=== PATIENT | female | born 1975 | race Caucasian/White ===

== ENCOUNTER 2019-02-17 22:03 | Emergency (ER) | payer BC ==
[2012-03-09 11:40] VITALS: BP 165/93
[2019-02-17] MEDS ORDERED: NA CHLORIDE 0.9% 1,000 ML ONE (23:04)
[2019-02-17 23:29] LABS: Absolute Lymphocytes (CBC) 0.6 K/uL (0.7-4.9); Absolute Monocytes 0.7 K/uL (0.1-1.3); Absolute Neutrophil 15.5 K/uL (1.8-8.0); Basophils % 0.3 % (0-1.3); Eosinophils % 0.4 % (0-4.4); Lymphocytes % 3.7 % (15.3-44.8); MPV 9.9 fL (7.6-11.3); Monocytes % 4.2 % (3.3-12.3); RBC Red Blood Cell Count 5.83 M/uL (3.86-4.86)
[2019-02-17 23:45] LABS: Bilirubin Direct 0.2 mg/dL (0-0.2); Bilirubin Total 0.7 mg/dL (0.2-1.0); Potassium 3.8 mmol/L (3.5-5.1)
[2019-02-17 23:59] LABS: Blood Morphology Comment NOT SEEN (NOT SEEN); Platelet Estimate ADEQ
[2019-02-18] MEDS ORDERED: DICYCLOMINE HCL 10 MG CAP ONE
[2019-02-18 00:05] LABS: Urine Culture Reflex Order NOT NEEDED
[2019-02-18 00:06] LABS: Urine Bacteria 20-50 /HPF (<20); Urine RBC <5 /HPF (NONE SEEN); Urine Yeast FEW (NONE SEEN)
[2019-02-18 00:10] LABS: Urine Blood 2+ (NEG); Urine Glucose 2+ (NEG); Urine Protein TRACE (NEG)
[2019-02-18] MEDS ORDERED: FENTANYL CITR 100 MCG/2 ML ONE (01:16)
[2019-02-18] MEDS ORDERED: NA CHLORIDE 0.9% 1,000 ML ONE (01:16)
[2019-02-18] MEDS ORDERED: DIAZEPAM 10 MG/2 ML INJ SYRINGE ONE (01:19)
[2019-02-18] MEDS ORDERED: PROMETHAZINE 25 MG/ML VIAL ONE ×2 (02:27)
[2019-02-18] MEDS ORDERED: METRONIDAZOLE 500mg IVPB 500 MG/100 ML BAG IV ONE (02:27)
--- NOTE | 2019-02-18 02:50 | ER ---
Nurse's Notes [facility] Name: Anatoliy Cardenas Age: 43 yrs Sex: Female : 1975 Arrival Date: 02/17/2019 Time: 22:05 Bed 27 Private MD: Lexa Nielsen Diagnosis: Enterocolitis;Nausea and vomiting Presentation: 02/17 22:24 Presenting complaint: Patient states: "About 6:30 I started feeling bad. My stomach aj1 started cramping, I'm having diarrhea and I keep throwing up, my watch says that my heart rate has been high too" Denies fever. Transition of care: patient was not received from another setting of care. Onset of symptoms was February 17, 2019 at 18:30. Risk Assessment: Do you want to hurt yourself or someone else? Patient reports no desire to harm self or others. Initial Sepsis Screen: Does the patient meet any 2 criteria? HR > 90 bpm. No. Patient's initial sepsis screen is negative. Does the patient have a suspected source of infection? Yes: Acute abdominal pain. Care prior to arrival: None. 22:24 Method Of Arrival: Wheelchair aj1 22:24 Acuity: PATRICIA 3 aj1 Triage Assessment: 22:28 General: Appears in no apparent distress. uncomfortable, ill, Behavior is calm, aj1 cooperative, appropriate for age. Pain: Complains of pain in abdomen Pain currently is 5 out of 10 on a pain scale. Quality of pain is described as crampy. Neuro: Level of Consciousness is awake, alert, obeys commands, Oriented to person, place, time, situation. Cardiovascular: Patient's skin is warm and dry. Respiratory: Airway is patent Respiratory effort is even, unlabored, Respiratory pattern is regular, symmetrical. GI: Reports diarrhea, nausea, vomiting. 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 - Social history:: Smoking status: Patient/guardian denies using tobacco. - Ebola Screening: : Patient denies travel to an Ebola-affected area in the 21 days before illness onset. Screenin:43 Abuse screen: Denies threats or abuse. Denies injuries from another. Nutritional mg2 screening: No deficits noted. Tuberculosis screening: No symptoms or risk factors identified. Fall Risk IV access (20 points). Assessment: 23:39 General: Appears in no apparent distress. comfortable. Pain: Complains of pain in mg2 abdomen Pain does not radiate. Pain currently is 5 out of 10 on a pain scale. Quality of pain is described as aching, Pain began gradually, \\T\\ 1800 tonight Is intermittent. Neuro: Level of Consciousness is awake, alert, obeys commands, Oriented to person, place, time, situation. Cardiovascular: Capillary refill < 3 seconds Patient's skin is warm and dry. Respiratory: Airway is patent Respiratory effort is even, unlabored, Respiratory pattern is regular, symmetrical. GI: Abdomen is round non-distended, Reports lower abdominal pain, upper abdominal pain, diarrhea, vomiting. EENT: No signs and/or symptoms were reported regarding the EENT system. Derm: Skin is intact, is healthy with good turgor, Skin is pink, warm \\T\\ dry. normal. Musculoskeletal: Circulation, motion, and sensation intact. Capillary refill < 3 seconds. 02/18 00:29 Reassessment: patient refused to do ct abdomen with contrast because patient is mg2 claustrophobic. provider informed. 01:32 Reassessment: patent sent to ct scan via stretcher. mg2 Vital Signs: 02/17 22:28 BP 142 / 95; Pulse 124; Resp 20; Temp 98.3; Pulse Ox 97% on R/A; Weight 145.6 kg (R); aj1 Height 5 ft. 6 in. (167.64 cm) (R); 02/18 00:16 BP 155 / 104; Pulse 108; Resp 18; Pulse Ox 100% on R/A; mg2 01:57 BP 112 / 80; Pulse 114; Resp 18; Pulse Ox 100% on R/A; mg2 03:02 BP 122 / 78; Pulse 104; Resp 18; Pulse Ox 100% on R/A; Pain 0/10; mg2 02/17 22:28 Body Mass Index 51.81 (145.60 kg, 167.64 cm) aj1 ED Course: 02/17 22:05 Patient arrived in ED. do 22:05 Lexa Nielsen MD is Private Physician. do 22:26 Triage completed. aj1 22:28 Arm band placed on Patient placed in an exam room. aj1 22:42 Desire Yañ[facility]-C [facility]. snw 22:42 Edmund Araya MD is Attending Physician. snw 22:44 Zuhair Reyes RN is Primary Nurse. mg2 23:43 No provider procedures requiring assistance completed. Inserted saline lock: 20 gauge mg2 in right forearm, using aseptic technique. Blood collected. 02/18 00:00 Patient has correct armband on for positive identification. mg2 01:31 CT completed. Patient tolerated procedure well. Patient moved to CT via stretcher. vr Patient moved back from CT. 01:40 CT Abd/Pelvis - W/Contrast In Process Unspecified. EDMS 02:48 Lexa Nielsen MD is Referral Physician. snw 03:10 IV discontinued, intact, bleeding controlled, No redness/swelling at site. Pressure mg2 dressing applied. Administered Medications: 02/17 23:15 Drug: NS 0.9% 1000 ml Route: IV; Rate: 1 bolus; Site: right forearm; mg2 02/18 02:12 Follow up: Response: No adverse reaction; IV Status: Completed infusion mg2 02/17 23:55 Drug: Phenergan 12.5 mg Route: IVP; Site: right forearm; mg2 02/18 00:30 Follow up: Response: No adverse reaction; Marked relief of symptoms mg2 00:15 Drug: Bentyl 20 mg Route: PO; mg2 02:12 Follow up: Response: No adverse reaction; Marked relief of symptoms mg2 01:02 Drug: NS 0.9% 1000 ml Route: IV; Rate: 1 bolus; Site: right antecubital; ca1 02:00 Follow up: Response: No adverse reaction; IV Status: Completed infusion mg2 01:03 Drug: Valium 5 mg Route: IVP; Site: right antecubital; ca1 02:12 Follow up: Response: No adverse reaction; Marked relief of symptoms mg2 01:05 Drug: fentaNYL (PF) 25 mcg Route: IVP; Site: right antecubital; ca1 02:12 Follow up: Response: No adverse reaction mg2 02:21 Drug: Phenergan 12.5 mg Route: IVP; Site: right forearm; mg2 03:09 Follow up: Response: No adverse reaction; Marked relief of symptoms mg2 02:21 Drug: Flagyl 500 mg Volume: 100 ml; Route: IVPB; Rate: 200 ml/hr; Infused Over: 30 mg2 mins; Site: right forearm; 03:09 Follow up: Response: No adverse reaction; IV Status: Completed infusion mg2 Outcome: 02:49 Discharge ordered by . snpernell 03:10 Discharged to home via wheelchair, with family. mg2 03:10 Condition: stable 03:10 Discharge instructions given to patient, family, Instructed on discharge instructions, follow up and referral plans. medication usage, Demonstrated understanding of instructions, follow-up care, medications, Prescriptions given X 3. 03:11 Patient left the ED. mg2 Signatures: Dispatcher [employer] EDAlyce Guillen RN RN aj1 Desire Yañez, CITY DETECTIVE-C CITY DETECTIVE-Lindsay Em Danielle do [place], Michele, RN RN mg2 Gabriella Oconnell RN RN ca1
--- NOTE | 2019-02-18 02:50 | EDPHYS ---
Physician Documentation [facility] Name: Anatoliy Cardenas Age: 43 yrs Sex: Female : 1975 Arrival Date: 02/17/2019 Time: 22:05 Bed 27 Private MD: Lexa Nielsen ED Physician Edmund Araya HPI: 02/18 02:38 This 43 yrs old Female presents to ER via Wheelchair with complaints of snw Vomiting/Diarrhea. 02:38 The patient presents to the emergency department with nausea, vomiting, diarrhea, snw abdominal pain, of the abdomen, described as achy, crampy. Possible causes: unknown. Associated signs and symptoms: The patient has no apparent associated signs or symptoms. Severity of symptoms: At their worst the symptoms were moderate severe in the emergency department the symptoms are unchanged. It is unknown whether or not the patient has had similar symptoms in the past. The patient has been recently seen by a physician: with similar presenting complaints. 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 - Social history:: Smoking status: Patient/guardian denies using tobacco. - Ebola Screening: : Patient denies travel to an Ebola-affected area in the 21 days before illness onset. ROS: 02/18 02:33 Constitutional: Negative for fever, chills, and weight loss, Eyes: Negative for injury, snw pain, redness, and discharge, ENT: Negative for injury, pain, and discharge, Neck: Negative for injury, pain, and swelling, Cardiovascular: Negative for chest pain, palpitations, and edema, Respiratory: Negative for shortness of breath, cough, wheezing, and pleuritic chest pain, Back: Negative for injury and pain, : Negative for injury, bleeding, discharge, and swelling, MS/Extremity: Negative for injury and deformity, Skin: Negative for injury, rash, and discoloration, Neuro: Negative for headache, weakness, numbness, tingling, and seizure. Abdomen/GI: Positive for abdominal pain, nausea, vomiting, and diarrhea. Exam: 02:32 Constitutional: This is a well developed, well nourished patient who is awake, alert, snw and in no acute distress. Head/Face: Normocephalic, atraumatic. Eyes: Pupils equal round and reactive to light, extra-ocular motions intact. Lids and lashes normal. Conjunctiva and sclera are non-icteric and not injected. Cornea within normal limits. Periorbital areas with no swelling, redness, or edema. ENT: Nares patent. No nasal discharge, no septal abnormalities noted. Tympanic membranes are normal and external auditory canals are clear. Oropharynx with no redness, swelling, or masses, exudates, or evidence of obstruction, uvula midline. Mucous membranes moist. Neck: Trachea midline, no thyromegaly or masses palpated, and no cervical lymphadenopathy. Supple, full range of motion without nuchal rigidity, or vertebral point tenderness. No Meningismus. Chest/axilla: Normal chest wall appearance and motion. Nontender with no deformity. No lesions are appreciated. Cardiovascular: Regular rate and rhythm with a normal S1 and S2. No gallops, murmurs, or rubs. Normal PMI, no JVD. No pulse deficits. Respiratory: Lungs have equal breath sounds bilaterally, clear to auscultation and percussion. No rales, rhonchi or wheezes noted. No increased work of breathing, no retractions or nasal flaring. Back: No spinal tenderness. No costovertebral tenderness. Full range of motion. Skin: Warm, dry with normal turgor. Normal color with no rashes, no lesions, and no evidence of cellulitis. MS/ Extremity: Pulses equal, no cyanosis. Neurovascular intact. Full, normal range of motion. Neuro: Awake and alert, GCS 15, oriented to person, place, time, and situation. Cranial nerves II-XII grossly intact. Motor strength 5/5 in all extremities. Sensory grossly intact. Cerebellar exam normal. Normal gait. Psych: Awake, alert, with orientation to person, place and time. Behavior, mood, and affect are within normal limits. 02:32 Abdomen/GI: Inspection: obese Bowel sounds: hyperactive, Palpation: moderate abdominal tenderness, in all quadrants. Vital Signs: 02/17 22:28 BP 142 / 95; Pulse 124; Resp 20; Temp 98.3; Pulse Ox 97% on R/A; Weight 145.6 kg (R); aj1 Height 5 ft. 6 in. (167.64 cm) (R); 02/18 00:16 BP 155 / 104; Pulse 108; Resp 18; Pulse Ox 100% on R/A; mg2 01:57 BP 112 / 80; Pulse 114; Resp 18; Pulse Ox 100% on R/A; mg2 03:02 BP 122 / 78; Pulse 104; Resp 18; Pulse Ox 100% on R/A; Pain 0/10; mg2 02/17 22:28 Body Mass Index 51.81 (145.60 kg, 167.64 cm) aj1 MDM: 02/17 23:42 Patient medically screened. snw 02/18 02:33 Data reviewed: vital signs, nurses notes. Data interpreted: Pulse oximetry: on room air snw is 100 %. Interpretation: normal. Counseling: I had a detailed discussion with the patient and/or guardian regarding: the historical points, exam findings, and any diagnostic results supporting the discharge/admit diagnosis, the presence of at least one elevated blood pressure reading (>120/80) during this emergency department visit, lab results, radiology results, the need for outpatient follow up, to return to the emergency department if symptoms worsen or persist or if there are any questions or concerns that arise at home. Response to treatment: the patient's symptoms have markedly improved after treatment. Special discussion: Based on the patient's Hx, exam, and Dx evaluation, there is no indication for emergent surgery or inpatient Tx. It is understood by the patient/guardian that if the Sx's persist or worsen they need to return immediately for re-evaluation. I have referred the patient to see his PCP for further evaluation of high blood pressure. Based on the history and exam findings, there is no indication for further emergent testing or inpatient evaluation. I discussed with the patient/guardian the need to see the aboriginal education teacher for further evaluation of the symptoms. I discussed with the patient/guardian the need to see the primary care provider for further evaluation of the symptoms. ED course: Pt states he WBC has been elevated x 2 months. Pt would like weight loss surgery but was denied as WBC were elevated. Pt with 17,000 WBC with left shift and increased H/H today, initially declines CT second to claustrophobia. Discussed anxiolytics and need to eval what is happening in her abdomen. Pt rec'd Valium and tolerated CT well. + enterocolitis. Will medicate with Flagyl IV, give phenergan and make sure pt can tolerate Cipro po for planned discharge with outpatient follow up . 02/17 22:43 Order name: Flu; Complete Time: 23:50 snw 02/17 22:43 Order name: Strep; Complete Time: 23:50 snw 02/17 22:43 Order name: Basic Metabolic Panel; Complete Time: 23:46 snw 02/17 22:43 Order name: CBC with Diff; Complete Time: 00:00 w 02/17 22:43 Order name: Hepatic Function; Complete Time: 23:46 w 02/17 22:43 Order name: Lipase; Complete Time: 23:46 w 02/17 22:43 Order name: Blood Culture Adult (2) [facility] 02/17 22:43 Order name: CPK; Complete Time: 23:46 w 02/17 22:44 Order name: Urine Culture [facility] 02/17 22:44 Order name: Urine Microscopic Only; Complete Time: 00:32 snw 02/17 23:26 Order name: Urine Dipstick--Ancillary (enter results); Complete Time: 00:32 cm6 02/17 23:26 Order name: Urine --Ancillary (enter results); Complete Time: 00:32 cm6 02/17 23:33 Order name: Manual Differential; Complete Time: 00:00 EDMS 02/17 23:48 Order name: Throat Culture [facility] 02/17 22:43 Order name: IV Saline Lock; Complete Time: 23:15 snw 02/17 22:43 Order name: Labs collected and sent; Complete Time: 23:15 snw 02/17 22:44 Order name: Urine Test (obtain specimen); Complete Time: 23:15 snw 02/17 22:44 Order name: Urine Dipstick-Ancillary (obtain specimen); Complete Time: 23:15 snw 02/17 23:46 Order name: CT Abd/Pelvis - W/Contrast snw Administered Medications: 02/17 23:15 Drug: NS 0.9% 1000 ml Route: IV; Rate: 1 bolus; Site: right forearm; mg2 02/18 02:12 Follow up: Response: No adverse reaction; IV Status: Completed infusion mg2 02/17 23:55 Drug: Phenergan 12.5 mg Route: IVP; Site: right forearm; mg2 02/18 00:30 Follow up: Response: No adverse reaction; Marked relief of symptoms mg2 00:15 Drug: Bentyl 20 mg Route: PO; mg2 02:12 Follow up: Response: No adverse reaction; Marked relief of symptoms mg2 01:02 Drug: NS 0.9% 1000 ml Route: IV; Rate: 1 bolus; Site: right antecubital; ca1 02:00 Follow up: Response: No adverse reaction; IV Status: Completed infusion mg2 01:03 Drug: Valium 5 mg Route: IVP; Site: right antecubital; ca1 02:12 Follow up: Response: No adverse reaction; Marked relief of symptoms mg2 01:05 Drug: fentaNYL (PF) 25 mcg Route: IVP; Site: right antecubital; ca1 02:12 Follow up: Response: No adverse reaction mg2 02:21 Drug: Phenergan 12.5 mg Route: IVP; Site: right forearm; mg2 03:09 Follow up: Response: No adverse reaction; Marked relief of symptoms mg2 02:21 Drug: Flagyl 500 mg Volume: 100 ml; Route: IVPB; Rate: 200 ml/hr; Infused Over: 30 mg2 mins; Site: right forearm; 03:09 Follow up: Response: No adverse reaction; IV Status: Completed infusion mg2 Disposition: 06:07 Co-signature as Attending Physician, Edmund Araya MD I agree with the assessment and tw4 plan of care. Disposition: 02/18/19 02:49 Discharged to Home. Impression: Enterocolitis, Nausea and vomiting. - Condition is Stable. - Discharge Instructions: Food Choices to Help Relieve Diarrhea, Adult, Clear Liquid Diet, Adult, Nausea and Vomiting, Adult. - Prescriptions for Cipro 500 mg Oral Tablet - take 1 tablet by ORAL route every 12 hours for 10 days; 20 tablet. Flagyl 500 mg Oral Tablet - take 1 tablet by ORAL route every 8 hours for 10 days; 30 tablet. promethazine 25 mg Oral Tablet - take 1 tablet by ORAL route every 6 hours As needed; 20 tablet. - Medication Reconciliation Form, Thank You Letter, Antibiotic Education, Prescription Opioid Use, Work release form form. - Follow up: Lexa Nielsen MD; When: 2 - 3 days; Reason: Recheck today's complaints, Continuance of care, Re-evaluation by your physician. Follow up: Emergency Department; When: As needed; Reason: Worsening of condition. Signatures: Dispatcher [employer] EDAlyce Guillen RN RN aj1 Desire Yañez, MANDREL CLEANER-C MANDREL CLEANER-Csnw Edmund Araya MD MD tw4 Zuhair Reyes RN RN mg2 Gabriella Oconnell RN RN ca1 Corrections: (The following items were deleted from the chart) 03:11 02:49 02/18/2019 02:49 Discharged to Home. Impression: Enterocolitis; Nausea and mg2 vomiting. Condition is Stable. Forms are Medication Reconciliation Form, Thank You Letter, Antibiotic Education, Prescription Opioid Use. Follow up: Lexa Nielsen; When: 2 - 3 days; Reason: Recheck today's complaints, Continuance of care, Re-evaluation by your physician. Follow up: Emergency Department; When: As needed; Reason: Worsening of condition. snw
--- NOTE | 2019-02-18 11:56 | RAD REPORT ---
EXAM DESCRIPTION: CT - Abdomen Pelvis W Contrast - 02/18/2019 1:58 am CLINICAL HISTORY: The patient is 43 years old and is Female; ABD PAIN TECHNIQUE: Axial computed tomography images of the abdomen and pelvis with intravenous contrast. S agittal and coronal reformatted images were created and reviewed. This CT exam was performed using one or more of the following dose reduction techniques: automated exposure control, adjustment of t he mA and/or kV according to patient size, and/or use of iterative reconstruction technique. COMPARISON: No relevant prior studies available. FINDINGS: LUNG BASES: Unremarkable. No mass. No consolidation. ABDOMEN: LIVER: There is a diffuse decrease in hepatic parenchymal density, consistent with fatty infiltr ation. GALLBLADDER AND BILE DUCTS: Surgical clips are present in the right upper quadrant, consistent w ith previous cholecystectomy. Mild biliary dilatation is present, likely postsurgical. PANCREAS: No ductal dilation. No mass. SPLEEN: Unremarkable. ADRENALS: Unremarkable. No mass. KIDNEYS AND URETERS: Unremarkable. No solid mass. No hydronephrosis. STOMACH AND BOWEL: The stomach is decompressed. The small bowel is relatively normal in calibe r. A few distal small bowel loops are fluid-filled. Minimal liquid stool is noted within the right co deborah. Minimal stool is noted throughout the colon. There is no mucosal thickening or evidence of bowel obstruction. PELVIS: APPENDIX: The appendix is normal in caliber without surrounding inflammation. BLADDER: Unremarkable. No mass. REPRODUCTIVE: Unremarkable as visualized. ABDOMEN and PELVIS: INTRAPERITONEAL SPACE: Unremarkable. No free air. No significant fluid collection. BONES/JOINTS: No acute fracture. Minimal degenerative change of the spine is present. SOFT TISSUES: The soft tissues are normal. VASCULATURE: Unremarkable. No abdominal aortic aneurysm. LYMPH NODES: Unremarkable. No enlarged lymph nodes. IMPRESSION: Nonspecific fluid-filled distal small bowel and colon specifically the right colon which may be secondary to a nonspecific enterocolitis. There is no bowel obstruction. Electronically signed by: Jessica Ritter MD 02/18/2019 1:53 AM CDT Due to temporary technical issues with the PACS/Fluency reporting system, reports are being signed by the in house radiologist as a courtesy to ensure prompt reporting. The interpreting radiologist is f ully responsible for the content of the report.
== END 2019-02-18 03:11 | disposition home or self-care (01) ==
LOC: ER 22:03
DX: K52.9 Noninfective gastroenteritis and colitis, unspecified (principal); I10 Essential (primary) hypertension; E11.9 Type 2 diabetes mellitus without complications; Z88.0 Allergy status to penicillin; Z88.2 Allergy status to sulfonamides; Z88.8 Allergy status to other drugs, medicaments and biological substances
CPT/HCPCS: 36415; 74177; 80048; 80076; 81003; 81015; 81025; 82550; 83690; 85025; 87040; 87070; 87081; 87086; 87088; 87804; 99284; J2550; J3010; J3360; J7030; Q9967

== ENCOUNTER 2020-07-23 22:01 | Emergency (ER) | payer BC ==
[2020-07-23] MEDS ORDERED: HYDROCODONE/APAP 10/325 TAB ONE (22:35)
[2020-07-23] MEDS ORDERED: KETOROLAC 30 MG/ML INJ ONE (22:36)
--- NOTE | 2020-07-23 23:36 | ER ---
Nurse's Notes [facility] Name: Anatoliy Cardenas Age: 45 yrs Sex: Female : 1975 Arrival Date: 07/23/2020 Time: 22:03 Bed 13 Private MD: Diagnosis: Pain in right knee;Sprain of medial collateral ligament of right knee Presentation: 07/23 22:15 Chief complaint: Patient states: she was sitting in her recliner at home and her dog bb jumped up on the foot rest hitting her right leg causing her right lower leg to hyperextend laterally and she is in severe knee pain. Coronavirus screen: At this time, the client does not indicate any symptoms associated with coronavirus-19. Ebola Screen: No symptoms or risks identified at this time. Initial Sepsis Screen: Does the patient meet any 2 criteria? No. Patient's initial sepsis screen is negative. Does the patient have a suspected source of infection? No. Patient's initial sepsis screen is negative. Risk Assessment: Do you want to hurt yourself or someone else? Patient reports no desire to harm self or others. Onset of symptoms was July 23, 2020. 22:15 Method Of Arrival: Wheelchair bb 22:15 Acuity: PATRICIA 4 bb Triage Assessment: 22:15 General: Appears in no apparent distress. uncomfortable, obese, Behavior is vc cooperative, crying. Pain: Complains of pain in right knee Pain does not radiate. Pain currently is 8 out of 10 on a pain scale. at worst was 10 out of 10 on a pain scale. Quality of pain is described as sharp, stabbing, Pain began suddenly, Is continuous, Alleviated by rest, cold application, Aggravated by increased activity, repositioning, weight bearing, Noted to be crying, grimacing, resistant to movement. 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 - Social history:: Smoking status: Patient denies any tobacco usage or history of. Patient uses alcohol, occasionally. Patient/guardian denies using street drugs. Screenin:15 Abuse screen: Denies threats or abuse. Nutritional screening: No deficits noted. vc Tuberculosis screening: No symptoms or risk factors identified. Fall Risk None identified. Assessment: 22:20 General: Appears in no apparent distress. uncomfortable, obese, Behavior is vc cooperative, crying. Pain: Complains of pain in right knee. Neuro: Level of Consciousness is awake, alert, obeys commands, Oriented to person, place, time, situation, Appropriate for age. Cardiovascular: Patient's skin is warm and dry. Respiratory: No deficits noted. GI: No signs and/or symptoms were reported involving the gastrointestinal system. : No signs and/or symptoms were reported regarding the genitourinary system. Musculoskeletal: Range of motion: limited in right knee Swelling present in right knee. 23:30 Reassessment: Patient and/or family updated on plan of care and expected duration. Pain vc level reassessed. Patient is alert, oriented x 3, equal unlabored respirations, skin warm/dry/pink. Patient states symptoms have improved. Vital Signs: 22:15 BP 153 / 98; Pulse 114; Resp 14 S; Temp 98(O); Pulse Ox 93% on R/A; Weight 170.1 kg bb (R); Height 5 ft. 7 in. (170.18 cm) (R); Pain 8/10; 23:00 BP 143 / 94; Pulse 100; Resp 15; Pulse Ox 94% on R/A; vc 23:38 BP 162 / 101; Pulse 100; Resp 16; Pulse Ox 90% on R/A; vc 23:38 Pain 8/10; vc 22:15 Body Mass Index 58.73 (170.10 kg, 170.18 cm) ED Course: 22:03 Patient arrived in ED. bp1 22:04 Ashley Martinez RN is Primary Nurse. vc 22:08 Gamaliel Muller PA is PHCP. jr8 22:08 Usman Hernandes MD is Attending Physician. jr8 22:17 Triage completed. bb 22:19 Arm band placed on Patient placed in an exam room, in a wheelchair, on pulse oximetry. tony Family accompanied patient. 22:19 Patient has correct armband on for positive identification. Bed in low position. Call vc light in reach. Pulse ox on. NIBP on. 23:25 XRAY Knee RIGHT 3 view In Process Unspecified. EDMS 23:35 Uriel Lucero MD is Referral Physician. jrSonia 23:50 Assist provider with bone marrow aspiration. Patient did not have IV access during this vc emergency room visit. Crutch training done. Jason wrap to right knee. Administered Medications: 22:31 Drug: Waller 10 mg-325 mg 1 tabs Route: PO; vc 23:28 Follow up: Response: No adverse reaction; Pain is decreased vc 22:31 Drug: TORadol 30 mg Route: IM; Site: right deltoid; vc 23:27 Follow up: Response: No adverse reaction; Pain is decreased vc Outcome: 23:35 Discharge ordered by . jrSonia 07/24 00:00 Discharged to home via wheelchair, with crutches, with family. vc Condition: good Discharge instructions given to patient, Instructed on discharge instructions, follow up and referral plans. medication usage, crutch walking, Demonstrated understanding of instructions, follow-up care, crutch walking, Prescriptions given X 1. 00:06 Patient left the ED. vc Signatures: Dispatcher [employer] Irena Narayan RN RN bb Roszak, Josh, PA PA jrAshley Monroy RN RN vc [place], Brittany bp1
--- NOTE | 2020-07-23 23:36 | EDPHYS ---
Physician Documentation [facility] Name: Anatoliy Cardenas Age: 45 yrs Sex: Female : 1975 Arrival Date: 07/23/2020 Time: 22:03 Bed 13 Private MD: ED Physician Usman Hernandes HPI: 07/23 22:22 This 45 yrs old Female presents to ER via Wheelchair with complaints of Knee jr8 Injury. 22:22 The patient presents with decreased range of motion, pain. The complaints affect the jr8 right knee. Context: The problem was sustained at home. Onset: The symptoms/episode began/occurred acutely, just prior to arrival, today. Modifying factors: The symptoms are alleviated by nothing. the symptoms are aggravated by movement, weight bearing. Associated signs and symptoms: The patient has no apparent associated signs or symptoms. Severity of symptoms: At their worst the symptoms were moderate, in the emergency department the symptoms are unchanged. The patient has not experienced similar symptoms in the past. The patient has not recently seen a physician. Patient stated that her dog hit her on medial aspect of leg causing leg and knee to hyperextend and abduct. Now has pain and cannot bear weight well . 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 - Social history:: Smoking status: Patient denies any tobacco usage or history of. Patient uses alcohol, occasionally. Patient/guardian denies using street drugs. ROS: 22:22 Eyes: Negative for injury, pain, redness, and discharge, ENT: Negative for injury, jr8 pain, and discharge, Neck: Negative for injury, pain, and swelling, Cardiovascular: Negative for chest pain, palpitations, and edema, Respiratory: Negative for shortness of breath, cough, wheezing, and pleuritic chest pain, Abdomen/GI: Negative for abdominal pain, nausea, vomiting, diarrhea, and constipation, Back: Negative for injury and pain, Skin: Negative for injury, rash, and discoloration, Neuro: Negative for headache, weakness, numbness, tingling, and seizure. 22:22 MS/extremity: Positive for decreased range of motion, pain, tenderness, of the right knee. Exam: 22:22 Cardiovascular: Regular rate and rhythm with a normal S1 and S2. No gallops, murmurs, jr8 or rubs. Normal PMI, no JVD. No pulse deficits. Respiratory: Lungs have equal breath sounds bilaterally, clear to auscultation and percussion. No rales, rhonchi or wheezes noted. No increased work of breathing, no retractions or nasal flaring. Skin: Warm, dry with normal turgor. Normal color with no rashes, no lesions, and no evidence of cellulitis. Neuro: Awake and alert, GCS 15, oriented to person, place, time, and situation. Cranial nerves II-XII grossly intact. Motor strength 5/5 in all extremities. Sensory grossly intact. Cerebellar exam normal. Normal gait. 22:22 Constitutional: The patient appears alert, awake, in obvious pain. 22:22 Musculoskeletal/extremity: Extremities: grossly normal except: noted in the right knee: decreased ROM, pain, tenderness, ROM: full passive range of motion, in all extremities, limited active range of motion, in the right leg, limited active range of motion due to pain, in the right leg, limited passive range of motion due to pain, in the right leg, Circulation is intact in all extremities. Pulses: noted to be 2+ in the right radial artery, right dorsalis pedis artery, left radial artery and left dorsalis pedis artery, Sensation intact. Vital Signs: 22:15 BP 153 / 98; Pulse 114; Resp 14 S; Temp 98(O); Pulse Ox 93% on R/A; Weight 170.1 kg bb (R); Height 5 ft. 7 in. (170.18 cm) (R); Pain 8/10; 23:00 BP 143 / 94; Pulse 100; Resp 15; Pulse Ox 94% on R/A; vc 23:38 BP 162 / 101; Pulse 100; Resp 16; Pulse Ox 90% on R/A; vc 23:38 Pain 8/10; vc 22:15 Body Mass Index 58.73 (170.10 kg, 170.18 cm) bb MDM: 22:08 Patient medically screened. jr8 23:34 Differential diagnosis: dislocation, closed fracture, contusion. Data reviewed: vital jr8 signs, nurses notes, radiologic studies, plain films. Data interpreted: Pulse oximetry: on room air is 95 %. Interpretation: normal. Counseling: I had a detailed discussion with the patient and/or guardian regarding: the historical points, exam findings, and any diagnostic results supporting the discharge/admit diagnosis, radiology results, the need for outpatient follow up, a orthopedic surgeon, to return to the emergency department if symptoms worsen or persist or if there are any questions or concerns that arise at home. 07/23 22:20 Order name: XRAY Knee RIGHT 3 view jr8 07/23 23:39 Order name: Crutches; Complete Time: 00:04 jr8 Administered Medications: 22:31 Drug: Moran 10 mg-325 mg 1 tabs Route: PO; vc 23:28 Follow up: Response: No adverse reaction; Pain is decreased vc 22:31 Drug: TORadol 30 mg Route: IM; Site: right deltoid; vc 23:27 Follow up: Response: No adverse reaction; Pain is decreased vc Disposition: 07/24 01:26 Co-signature as Attending Physician, Usman Hernandes MD. [facility] Disposition: 07/23/20 23:35 Discharged to Home. Impression: Pain in right knee, Sprain of medial collateral ligament of right knee. - Condition is Stable. - Discharge Instructions: Knee Pain. - Prescriptions for meloxicam 15 mg Oral tablet - take 1 tablet by ORAL route once daily As needed; 20 tablet. - Work release form, Medication Reconciliation Form, Thank You Letter, Antibiotic Education, Prescription Opioid Use form. - Follow up: Uriel Lucero MD; When: 5 - 6 days; Reason: Recheck today's complaints, Continuance of care, Re-evaluation by your physician. - Problem is new. - Symptoms have improved. Signatures: Dispatcher [employer] EDIrena Arreola RN RN bb Roszak, Josh, PA PA 8 Ashley Martinez RN RN vc Holmes, Maurice, MD MD [facility] Corrections: (The following items were deleted from the chart) 00:06 07/23 23:35 07/23/2020 23:35 Discharged to Home. Impression: Pain in right knee; Sprain vc of medial collateral ligament of right knee. Condition is Stable. Forms are Medication Reconciliation Form, Thank You Letter, Antibiotic Education, Prescription Opioid Use. Follow up: Uriel Lucero; When: 5 - 6 days; Reason: Recheck today's complaints, Continuance of care, Re-evaluation by your physician. Problem is new. Symptoms have improved. jr8
[2020-07-24 01:31] VITALS: TEMP 98
[2020-07-24 01:34] VITALS: BP 162/101; O2SAT 90
--- NOTE | 2020-07-24 07:50 | RAD REPORT ---
EXAM DESCRIPTION: RAD - Knee Right 3 View - 07/23/2020 11:25 pm CLINICAL HISTORY: Right knee pain status post injury FINDINGS: Suboptimal lateral view obtained. No fracture or dislocation is seen. Moderate medial joint space narrowing If patient continues to have symptoms to suggest an occult fracture, ligamentous or meniscal injury M RI would
== END 2020-07-24 00:06 | disposition home or self-care (01) ==
LOC: ER 22:01
DX: S83.411A Sprain of medial collateral ligament of right knee, initial encounter (principal); W22.8XXA Striking against or struck by other objects, initial encounter; Y93.89 Activity, other specified; Y92.009 Unspecified place in unspecified non-institutional (private) residence as the place of occurrence of the external cause; Z88.0 Allergy status to penicillin; Z88.2 Allergy status to sulfonamides; Z88.8 Allergy status to other drugs, medicaments and biological substances; I10 Essential (primary) hypertension; E11.9 Type 2 diabetes mellitus without complications
CPT/HCPCS: 96372; 99284

== ENCOUNTER 2023-02-25 18:01 | Inpatient (IN) | payer OTHER ==
--- OUTSIDE RECORDS SUMMARY | 2023-02-25 18:08 | XMS REPORT | Continuity of Care Document ---
:1975 Author Organization [facility] t Address [address] [facility] [place] [address] Care Team Providers Name Role Phone Sven Black Primary Care Physician KAILEY EDWARD Attending Clinician Unavailable BIN HORVATH Attending Clinician Unavailable MD JOJO Attending Clinician Unavailable LAB90 Attending Clinician Unavailable ILYA MUJICA Attending Clinician Unavailable SONIDO WOO Attending Clinician Unavailable LUCIAN COWAN Attending Clinician Unavailable Kailey Craig Attending Clinician TEODORO ROJO Attending Clinician Unavailable Doctor Unassigned, [place] Attending Clinician Unavailable Cleopatra Chandler RN Attending Clinician Rony Segovia DO Attending Clinician Florinda Lewis MD Attending Clinician Tasha Montez MD Attending Clinician TASHA MONTEZ Attending Clinician Unavailable Ravinder PAGE, Teodoro Sanford Attending Clinician [phone] BAMBI AGUILERA Attending Clinician Unavailable 2, [facility] Attending Clinician Unavailable Bambi Aguilera MD Attending Clinician Florinda Lewis MD Admitting Clinician FLORINDA LEWIS Admitting Clinician Unavailable Payers Payer Name Policy Type Policy Number Effective Date Expiration Date S jay VIEIRA-ALLEGIANPEPPER 2 [id number] 2022 /PPO 00:00:00 [facility] 3 [id number] 2021 00:00:00 [id number] 2019 OUT OF STATE 00:00:00 Problems Condition Condition Condition Status Onset Resolution Last Treating Co mments Source Name Details Category Date Date Treatment Clinician Date 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 11-21 ity of embolism embolism 00:00: [place] 00 Medical Branch Morbid Morbid Disease Active 2020-11 Univers obesity obesity 11-21 [place] of with body [place] mass index [place] index 00 Me dical of 50 or of 50 or Branch higher higher Encounter Encounter Disease Active 2020-11 Giovanny morrison for for 11-09 Seybold initial initial 00:00: - prescripti prescripti 00 Ex terna on of on of l contracept contracept ascencion ascencion Vitamin D Vitamin D Disease Active 2020-11 Giovanny morrison deficiency deficiency 11-09 Se ybold 00:00: - 00 Externa l 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:00: - major major 00 Externa depressive depressive l disorder disorder without without prior prior episode episode Overweight Overweight Disease Active 2020-11 Erich wilkes 11-09 Seybold 00:00: - 00 Externa l 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 11-09 Se ybold ia ia 00:00: - 00 Externa l Folliculit Folliculit Disease Active 2020-11 Erich wilkes is is 11-09 Seybold 00:00: - 00 Externa l ELENO ELENO Disease Active Anayeli (obstructi (obstructi 7 Se ybold ve sleep ve sleep 00:00: - apnea) - apnea) - 00 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 Not Not l Controlled Controlled Floaters Floaters Disease Active Kelse y in visual in visual 7-28 Seyb old field, field, 00:00: - right - right - 00 Externa Not Not l Controlled Controlled 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 00:00: - with skin with skin 00 Exte rna complicati complicati l on, on, without without long-term long-term current current use of use of insulin insulin Essential Essential Disease Active Giovanny sey hypertensi hypertensi 4-13 Se ybold on on 00:00: - 00 Externa l Abscess of Abscess of Disease Active K elsey skin skin 4 Seybold 00:00: - 00 Externa l Allergies, Adverse Reactions, Alerts Allergy Allergy Status Severity Reaction(s) Onset Inactive Treating Comm ents Source Name Type Date Date Clinician Penicill Propensi Active Anaphylaxis 2019-11 unknownu n Anayeli in G ty to 12-18 known Seybold adverse 00:00: - reaction 00 Externa s l Sulfa Propensi Active Itching 2019-11 Anayeli Drugs ty to 12-18 Seybold adverse 00:00: reaction 00 s Sulfa Propensi Active Itching 2019-11 Anayeli Drugs ty to 12-18 Seybold adverse 00:00: - reaction 00 Externa s l Penicill Propensi Active Unknown - 2019-11 unknown Un roberto in ty to See comments 12-18 ity of adverse 00:00: [place] reaction 00 Medical s Branch Sulfa Propensi Active Itching 2019-11 Univers (Sulfona ty to 209 ity of mide adverse 00:00: [place] Antibiot reaction 00 Medica l ics) s Branch SULFA Drug Active Med ITCHING 2019-11 Univers (SULFONA Class 2 ity of MIDE 00:00: [place] ANTIBIOT 00 Medical ICS) Branch PENICILL DRUG Active Unknown-Cmnt 2019-11 Un roberto IN INGREDI 2- ity of 00:00: [place] 00 Medical Branch NO KNOWN Drug Active Univers ALLERGIE Class ity of S [facility] [place] [facility] Social History Social Habit Start Date Stop Date Quantity Comments Source History SDOH University o f Alcohol Frequency [place] [facility] History SDOH University o f Alcohol Std [place] [facility] Drinks Branch History SDOH University o f Alcohol Binge [place] [facility] al Branch Exposure to 2021-11-24 2021-12-24 Not sure Anayeli keita SARS-CoV-2 00:00:00 12:42:00 (event) Alcohol Comment 2021-09-21 2021-09-21 socially Universit y of 00:00:00 00:00:00 [facility] [place] [facility] Alcohol intake 2021-09-21 2021-09-21 Current drinker Unive rsity of 00:00:00 00:00:00 of alcohol [place] [facility] (finding) [place] Tobacco use and 2020-11-14 2020-11-14 Never used Universit y of exposure 00:00:00 00:00:00 [facility] [place] [facility] Sex Ass[birth year] At [birth year] F Anayeli Negron ybold - 00:00:00 00:00:00 External Smoking Status Start Date Stop Date Source Never smoked tobacco Anayeli Diamond old - External Unknown if ever smoked Universit y of [facility] [place] [facility] Medications Ordered Filled Start Stop Current Ordering Indication Dosage Frequency Signature Comments Components Source Medication Medication Date Date Medication? Clinician (SIG) Name Name Blood 2021-11 Yes [id number] 1{each} 1 each by Anayeli Glucose 1-18 does not Seybold Monitoring 00:00: apply - Suppl 00 route 3 to Externa (OneTouch 4 times l Verio Flex daily System) w/Device does not apply Kit Apixaban 5 2021-11- No 1{tbl} Take 1 Ke lsey MG oral 1-17 11-17 tablet by Seybol d Tablet 14:15: 00:00 mouth - 02 :00 daily Externa l Tirzepatide 2021-11 Yes [id number] 2.5mg Inject 0.5 Anayeli (Mounjaro) 1-11 mL (2.5 mg Sey bold 2.5 00:00: total) - MG/0.5ML 00 into the Externa subcutaneou skin once l s Solution a week Pen-injecto r Metformin 2021-11- No [id number] 1000mg Take 1 Anayeli HCl 1000 MG 11-19 tablet Seybo ld oral Tablet 00:00: 00:00 (1,000 mg - 00 :00 total) by Externa mouth in l the morning and 1 tablet (1,000 mg total) in the evening. Take with meals. Empaglifloz 2021-11- No [id number] 25mg Take 25 mg Anayeli in 11-19 by mouth Seybold (Jardiance) 00:00: 00:00 daily - 25 MG oral 00 :00 Externa Tablet l Glucose 2021-11 Yes [id number] 100{eac 100 each Anayeli Blood in -09 h} by other Seybold vitro Strip 00:00: route 2 - 00 times Externa daily l Blood 2021-11- No [id number] Please Kelse y Glucose 11-17 provide Seybold Monitoring 00:00: 00:00 one touch - Suppl 00 :00 ildefonso (flex Externa (Blood or l Glucose reflex)Wit Monitor h 100 System) strips 3 w/Device month does not supply. apply Kit [employer] reports that they will pay 100% hydrOXYzine 0 Yes [id number] 25mg Q.25D Take 1 Anayeli HCl 25 MG - tablet (25 Seyb old oral Tablet 00:00: mg total) - 00 by mouth Externa every 6 l hours as needed for itching Norethindro Yes [id number] .35mg Take 1 Anayeli ne, - tablet Seybold Contracepti 00:00: (0.35 mg - ve, 00 total) by Externa (Danae) mouth l 0.35 MG every oral Tablet morning Mupirocin 0 2021- No [id number] Apply 1 Anayeli (BACTROBAN) 07-01 applicatio S eybold 2 % apply 00:00: 00:00 n - externally 00 :00 topically Exte rna Ointment 2 times l daily Apixaban 2021-0 Yes [id number] 5mg Take 1 Anayeli (Eliquis) 5 05-09 9109 tablet (5 Sey bold MG oral 00:00: mg total) - Tablet 00 by mouth 2 Externa times l daily Ondansetron Yes [id number] 4mg Q.[id number] Take 1 Anayeli (Zofran 4-25 [id number] tablet (4 S eybold ODT) 4 MG 00:00: 3D mg total) oral TABLET 00 by mouth DISPERSIBLE every 8 hours as needed for nausea Amoxicillin Yes [id number] 1{tbl} Take 1 Anayeli -Pot 4-25 tablet by Seybold Clavulanate 00:00: mouth in 875-125 MG 00 the oral Tablet morning and 1 tablet in the evening. Fluconazole Yes [id number] Take 1 Anayeli 150 MG oral 4-25 tabe now Seyb old Tablet 00:00: and 1 tab 00 at the end of antibiotic s Pseudoeph-B Yes [id number] 10mL Q.25D Take 10 mL Anayeli romphen-DM 4-25 by mouth 4 Sey bold (Bromfed 00:00: times DM) 30-2-10 00 daily as MG/5ML oral needed Syrup Ondansetron Yes [id number] 4mg Q.00174417 Take 1 Anayeli (Zofran 4-25 [id number] tablet (4 S eybold ODT) 4 MG 00:00: 3D mg total) - oral TABLET 00 by mouth Exte rna DISPERSIBLE every 8 l hours as needed for nausea Pseudoeph-B 0 2021- No [id number] 10mL Q.25D Take 10 mL Anayeli romphen-DM 4-25 11-18 by mouth 4 Se ybold (Bromfed 00:00: 00:00 times - DM) 30-2-10 00 :00 daily as Exte rna MG/5ML oral needed l Syrup Acetaminoph 0 Yes [id number] 1{tbl} Q4H Take 1 Anayeli en-Codeine 4-01 tablet by Seyb old 300-30 MG 00:00: mouth oral Tablet 00 every 4 hours as needed for pain Acetaminoph 2021-0 2021- No [id number] 1{tbl} Q4H Take 1 Anayeli en-Codeine 4-01 11-18 tablet by Sey bold 300-30 MG 00:00: 00:00 mouth - oral Tablet 00 :00 every 4 Exter na hours as l needed for pain Escitalopra Yes [id number] TAKE ONE Anayeli blanchard Oxalate 3-14 TABLET BY Seybo ld 10 MG oral 00:00: MOUTH Tablet 00 DAILY Continuous Yes [id number] CHECK Erich wilkes Blood Gluc 3-14 BLOOD Seybold Sample Dye Mixer 00:00: SUGAR FOUR (FreeStyle 00 TIMES A Erika 14 DAY AND Day [place]) NEEDED does not apply Device Escitalopra Yes [id number] TAKE ONE Anayeli blanchard Oxalate 3-14 TABLET BY Seybo ld 10 MG oral 00:00: MOUTH - Tablet 00 DAILY Externa l Continuous 2021- No [id number] CHECK Anayeli Blood Gluc 3-14 11-17 BLOOD Seybold Sample Dye Mixer 00:00: 00:00 SUGAR FOUR - (FreeStyle 00 :00 TIMES A 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 Erika 14 DAY AND l Day [place]) NEEDED does not apply Device NEOMYCIN-PO Yes [id number] 2[drp] Q.[id number] Place 2 Anayeli LYMYXIN-HC, - [id number] drops into Seybold OTIC, 1 % 00:00: 3D both ears otic 00 3 times Solution daily as needed Amoxicillin Yes [id number] 1{tbl} Take 1 Anayeli -Pot 3-09 tablet by Seybold Clavulanate 00:00: mouth in 875-125 MG 00 the oral Tablet morning and 1 tablet in the evening. Norethindro Yes [id number] .35mg Take 1 Anayeli ne, 3-09 tablet Seybold Contracepti 00:00: (0.35 mg ve, 0.35 MG 00 total) by oral Tablet mouth in the morning. NEOMYCIN-PO Yes [id number] 2[drp] Q.[id number] Place 2 Anayeli LYMYXIN-HC, 3- 48434 [id number] drops into Seybold OTIC, 1 % 00:00: 3D both ears otic 00 3 times Solution daily as needed Norethindro Yes [id number] .35mg Take 1 Anayeli ne, 3-09 tablet Seybold Contracepti 00:00: (0.35 mg ve, 0.35 MG 00 total) by oral Tablet mouth in the morning. NEOMYCIN-PO 2021- No [id number] 2[drp] Q.[id number] Place 2 Anayeli SNOWDENYXIN-HC, 01-15 03033 [id number] drops into Seybold OTIC, 1 % 00:00: 00:00 3D both ears - otic 00 :00 3 times Externa Solution daily as l needed Amoxicillin 2021- No [id number] 1{tbl} Take 1 Anayeli -Pot 01-15 04-25 tablet by Seybold Clavulanate 00:00: 00:00 mouth in 875-125 MG 00 :00 the oral Tablet morning and 1 tablet in the evening. Continuous Yes [id number] CHECK FOUR Anayeli Blood Gluc 2-23 TIMES A Seybol d Sensor 00:00: DAY AND (FreeStyle 00 NEEDED AND Erika 14 CHANGE Day Sensor) EVERY 14 does not DAYS apply Misc Continuous Yes [id number] CHECK FOUR Anayeli Blood Gluc 2-23 TIMES A Seybol d Sensor 00:00: DAY AND (FreeStyle 00 NEEDED AND Erika 14 CHANGE Day Sensor) EVERY 14 does not DAYS apply Misc Continuous Yes [id number] CHECK FOUR Anayeli Blood Gluc 2-23 TIMES A Seybol d Sensor 00:00: DAY AND - (FreeStyle 00 NEEDED AND Ext master Erika 14 CHANGE l Day Sensor) EVERY 14 does not DAYS apply Misc Norethindro 2021- No [id number] .35mg Take 1 Anayeli ne, 2-01-15 tablet Seybold Contracepti 00:00: 00:00 (0.35 mg ve, 0.35 MG 00 :00 total) by oral Tablet mouth daily Escitalopra Yes [id number] 10mg Take 1 Anayeli m Oxalate 2-11 tablet (10 Seyb old 10 MG oral 00:00: mg total) Tablet 00 by mouth daily Continuous Yes [id number] Please Anayeli Blood Gluc 2-11 check BS 4 Sey bold Sample Dye Mixer 00:00: times (FreeStyle 00 daily and Erika 14 as needed. Day [place]) does not apply Device hydrOXYzine Yes [id number] 25mg Q.25D Take 1 Anayeli HCl 25 MG 2-11 tablet (25 Seyb old oral Tablet 00:00: mg total) 00 by mouth every 6 hours as needed for itching Metoprolol 2021-0 Yes [id number] 50mg Take 1 K elsey Succinate 2-11 tablet (50 Seyb old 50 MG oral 00:00: mg total) TABLET SR 00 by mouth 24 HR daily Empaglifloz 2021-0 Yes [id number] 25mg Take 25 mg Anayeli in 2-11 by mouth Seybold (Jardiance) 00:00: daily 25 MG oral 00 Tablet Dulaglutide 2021-0 Yes [id number] 4.5mg Inject 4.5 Anayeli (Trulicity) 2-11 mg into Seybo ld 4.5 00:00: the skin MG/0.5ML 00 once a subcutaneou week s Solution Pen-injecto r hydrOXYzine 2021-0 Yes [id number] 25mg Q.25D Take 1 Anayeli HCl 25 MG 2-11 tablet (25 Seyb old oral Tablet 00:00: mg total) 00 by mouth every 6 hours as needed for itching Metoprolol 2021-0 Yes [id number] 50mg Take 1 K elsey Succinate 2-11 tablet (50 Seyb old 50 MG oral 00:00: mg total) TABLET SR 00 by mouth 24 HR daily Empaglifloz 2021-0 Yes [id number] 25mg Take 25 mg Anayeli in 2-11 by mouth Seybold (Jardiance) 00:00: daily 25 MG oral 00 Tablet Dulaglutide 2021-0 Yes [id number] 4.5mg Inject 4.5 Anayeli (Trulicity) 2-11 mg into Seybo ld 4.5 00:00: the skin MG/0.5ML 00 once a subcutaneou week s Solution Pen-injecto r Metoprolol 2021-0 2021- No [id number] 50mg Take 1 Anayeli Succinate 2-11 11-18 tablet (50 Sey bold 50 MG oral 00:00: 00:00 mg total) - TABLET SR 00 :00 by mouth 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 24 HR daily l Dulaglutide 2021-0 2021- No [id number] 4.5mg Inject 4.5 Anayeli (Trulicity) 2-11 11-18 mg into Seyb old 4.5 00:00: 00:00 the skin - MG/0.5ML 00 :00 once a Externa subcutaneou week l s Solution Pen-injecto r Benzonatate Yes [id number] 100mg Q.[id number] Take 1 Anayeli (Tessalon 2-02 [id number] capsule S eybold Perles) 100 00:00: 3D (100 mg MG oral 00 total) by Capsule mouth 3 times daily as needed for cough Pseudoeph-B Yes [id number] 10mL Q.25D Take 10 mL Anayeli romphen-DM 2-02 by mouth 4 Sey bold (Bromfed 00:00: times DM) 30-2-10 00 daily as MG/5ML oral needed Syrup Pseudoephed Yes [id number] 120mg Take 1 Anayeli rine HCl 2-02 tablet Seybold (Sudafed 12 00:00: (120 mg Hour) 120 00 total) by MG oral mouth Tablet 12 every 12 Hour hours Sustained Release Albuterol Yes [id number] 2{puff} Q.25D Inhale 2 Anayeli HFA 108 (90 2-02 puffs into Se ybold Base) 00:00: the lungs MCG/ACT IN 00 every 6 AERS hours as needed for wheezing Benzonatate Yes [id number] 100mg Q.[id number] Take 1 Anayeli (Tessalon 2-02 [id number] capsule S eybold Perles) 100 00:00: 3D (100 mg MG oral 00 total) by Capsule mouth 3 times daily as needed for cough Pseudoephed Yes [id number] 120mg Take 1 Anayeli rine HCl 2-02 tablet Seybold (Sudafed 12 00:00: (120 mg Hour) 120 00 total) by MG oral mouth Tablet 12 every 12 Hour hours Sustained Release Albuterol Yes [id number] 2{puff} Q.25D Inhale 2 Anayeli HFA 108 (90 2-02 puffs into Se ybold Base) 00:00: the lungs MCG/ACT IN 00 every 6 AERS hours as needed for wheezing Albuterol Yes [id number] 2{puff} Q.25D Inhale 2 Anayeli HFA 108 (90 2-02 puffs into Se ybold Base) 00:00: the lungs - MCG/ACT IN 00 every 6 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 AERS hours as l needed for wheezing Benzonatate 2021- No [id number] 100mg Q.[id number] Take 1 Anayeli (Tessalon 12-11 [id number] capsule Seybold Perllucinda) 100 00:00: 00:00 3D (100 mg - MG oral 00 :00 total) by Externa Capsule mouth 3 l times daily as needed for cough Pseudoephed 2021- No [id number] 120mg Take 1 Anayeli rine HCl 12-11 tablet Seybold (Sudafed 12 00:00: 00:00 (120 mg - Hour) 120 00 :00 total) by Exter na MG oral mouth l Tablet 12 every 12 Hour hours Sustained Release Pseudoeph-B 2021- No [id number] 10mL Q.25D Take 10 mL Anayeli romphen-DM 12-11-25 by mouth 4 Se ybold (Bromfed 00:00: 00:00 times DM) 30-2-10 00 :00 daily as MG/5ML oral needed Syrup Dulaglutide 2020-11 Yes [id number] 4.5mg Inject 4.5 Anayeli (Trulicity) 2-28 mg into Seybo ld 4.5 00:00: the skin MG/0.5ML 00 once a subcutaneou week s Solution Pen-injecto r Trulicity 2020-11- No [id number] INJECT 4.5 Anayeli 4.5 2-27 12-28 MG UNDER Seybold MG/0.5ML 00:00: 00:00 THE SKIN subcutaneou 00 :00 ONCE s Solution WEEKLY Pen-injecto r apixaban 5 2020-11- No [id number] 5mg Take 1 Univ ers mg tablet 12-22 tablet by ity of 00:00: 05:59 mouth [place] 00 :00 every 12 Medical (twelve) Branch hours for 360 days. Indication s: a clot in the lung apixaban 5 2020-11- No [id number] 5mg Take 1 Univ ers mg tablet 12-22 tablet by ity of 00:00: 05:59 mouth [place] 00 :00 every 12 Medical (twelve) Branch hours for 360 days. Indication s: a clot in the lung apixaban 5 2020-112- No [id number] 5mg Take 1 Univ ers mg tablet 2-21 10- tablet by ity of 00:00: 05:59 mouth [place] 00 :00 every 12 Medical (twelve) Branch hours for 360 days. Indication s: a clot in the lung Apixaban 2020-11 Yes [id number] 5mg Take 1 Ke lsey (Eliquis) 5 2-06 tablet (5 Sey bold MG oral 00:00: mg total) Tablet 00 by mouth 2 times daily Apixaban 2020-11 Yes [id number] 5mg Take 1 Ke lsey (Eliquis) 5 2-06 tablet (5 Sey bold MG oral 00:00: mg total) Tablet 00 by mouth 2 times daily Apixaban 2020-11 Yes [id number] 5mg Take 1 Anayeli (Eliquis) 5 2- 9109 tablet (5 Sey bold MG oral 00:00: mg total) Tablet 00 by mouth 2 times daily Ondansetron 2020-11 Yes [id number] 4mg Q8H Take 1 Anayeli (ZOFRAN) 4 2-03 tablet (4 Seyb old MG oral 00:00: mg total) TABLET 00 by mouth DISPERSIBLE every 8 hours as needed for nausea Ondansetron 2020-11 Yes [id number] 4mg Q.[id number] Take 1 Anayeli (ZOFRAN) 4 2-03 [id number] tablet (4 Seybold MG oral 00:00: 3D mg total) TABLET 00 by mouth DISPERSIBLE every 8 hours as needed for nausea Ondansetron 2020-11- No [id number] 4mg Q.[id number] Take 1 Anayeli (ZOFRAN) 4 2- 04-25 [id number] tablet (4 Seybold MG oral 00:00: 00:00 3D mg total) TABLET 00 :00 by mouth DISPERSIBLE every 8 hours as needed for nausea Sertraline 2020-11 Yes [id number] TAKE ONE Anayeli HCl 50 MG 1-30 TABLET BY Seybo ld oral Tablet 00:00: MOUTH 00 DAILY Apixaban 5 2020-11 Yes 1{tbl} Take 1 Giovanny sey MG oral 1-19 tablet by Seybold Tablet 15:09: mouth 56 daily Apixaban 5 2020-11 Yes 1{tbl} Take 1 Giovanny sey MG oral 1-19 tablet by Seybold Tablet 15:09: mouth 56 daily Apixaban 5 2020-11 Yes 1{tbl} Take 1 Giovanny sey MG oral 1-19 tablet by Seybold Tablet 15:09: mouth 56 daily Apixaban 5 2020-11 Yes 1{tbl} Take 1 Giovanny sey MG oral 1-19 tablet by Seybold Tablet 15:09: mouth 56 daily Lansoprazol 2020-11- No 30mg Take 30 mg Anayeli e 30 MG -27 09-19 by mouth Seybold oral 15:09: 00:00 daily Delayed 19 :00 Release Capsule Dulaglutide 2020-11 Yes [id number] 4.5mg Inject 4.5 Anayeli 4.5 1-19 mg into Seybold MG/0.5ML 00:00: the skin subcutaneou 00 once a s Solution week Pen-injecto r Apixaban 2020-11 Yes [id number] 5mg Take 1 Ke lsey (Eliquis) 5 -19 tablet (5 Sey bold MG oral 00:00: mg total) Tablet 00 by mouth 2 times daily ibuprofen 2020-11 Yes 600mg Take 600 Uni vers 600 mg 1-17 mg by ity of tablet 07:16: mouth [place] 02 every 6 Medical (six) Branch hours as needed. dulaglutide 2020-11 Yes 3mg inject 3 Un roberto (TRULICITY) 1-17 mg under ity of 3 mg/0.5 mL 07:16: the skin [place] PnIj 02 weekly. Medical Branch SERTraline 2020-11 Yes 25mg Take 25 mg U nivers (ZOLOFT) 25 -17 by mouth ity of mg tablet 07:16: at [place] 02 bedtime. Medical Branch hydrOXYzine 2020-11 Yes 10mg Take 10 mg Univers 10 mg -17 by mouth ity of tablet 07:16: every 6 [place] 02 (six) Medical hours as Branch needed for Itching. apixaban 2020-11 No 10mg [Order 1 Univ ers (ELIQUIS) -15 09-30 Start] ity of tablet 10 22:00: 21:59 Name: [place] mg 00 :00 apixaban Medical (ELIQUIS) Branch tablet 10 mg Signed Summary: 10 mg, Oral, Q12H ABX, 14 doses, First dose on Thu09/23/21 at 1600, Last dose on Thu09/30/21 at 0400, Routine
Indicatio ns: DVT/PE [Order 1 End] [Order 2 Start] Name: apixaban (ELIQUIS) tablet 5 mg Signed Summary: 5 mg, Oral, Q12H ABX, First dose on Thu09/30/21 at 1600, Until Discontinu ed, Routine
Indicatio ns: DVT/PE [Order 2 End] metoprolol 2020-11 Yes 50mg Take 50 mg U nivers succinate 1-15 by mouth ity of XL 50 mg 24 19:16: daily. [place] hr tablet 14 Medical Branch ibuprofen 2020-11 Yes 600mg Take 600 Uni vers 600 mg 1-15 mg by ity of tablet 19:16: mouth [place] 14 every 6 Medical (six) Branch hours as needed. dulaglutide 2020-11 Yes 3mg inject 3 Un roberto (TRULICITY) 1-15 mg under ity of 3 mg/0.5 mL 19:16: the skin [place] PnIj 14 weekly. Medical Branch SERTraline 2020-11 Yes 25mg Take 25 mg U nivers (ZOLOFT) 25 1-15 by mouth ity of mg tablet 19:16: at [place] [address] bedtime. Medical Branch hydrOXYzine 2020-11 Yes 10mg Take 10 mg Univers 10 mg 1-15 by mouth ity of tablet 19:16: every 6 [place] 14 (six) Medical hours as Branch needed for Itching. metoprolol 2020-11 Yes 50mg Take 50 mg U nivers succinate 1-15 by mouth ity of XL 50 mg 24 19:16: daily. [place] hr tablet 14 Medical Branch ibuprofen 2020-11 Yes 600mg Take 600 Uni vers 600 mg 1-15 mg by ity of tablet 19:16: mouth [place] 14 every 6 Medical (six) Branch hours as needed. dulaglutide 2020-11 Yes 3mg inject 3 Un roberto (TRULICITY) 1-15 mg under ity of 3 mg/0.5 mL 19:16: the skin [place] PnIj 14 weekly. Medical Branch SERTraline 2020-11 Yes 25mg Take 25 mg U nivers (ZOLOFT) 25 -15 by mouth ity of mg tablet 19:16: at [place] 14 bedtime. Medical Branch hydrOXYzine 2020-11 Yes 10mg Take 10 mg Univers 10 mg -15 by mouth ity of tablet 19:16: every 6 [place] 14 (six) Medical hours as Branch needed for Itching. metoprolol 2020-11 Yes 50mg Take 50 mg U nivers succinate -15 by mouth ity of XL 50 mg 24 19:16: daily. [place] hr tablet 14 Medical Branch sulfur 2020-11- No [id number] 5mL 5 mL, Unive rs hexafluorid 11-23-15 Intravenou i ty of e microsphr 15:45: 15:45 s, ONCE, 1 [place] (LUMASON) 00 :00 dose, On Medica l injection 5 Thu Branch mL 09/23/21 at 0945, Routine
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 Instr., Starting on Thu09/23/21 at 0749
CA UTION - If LMWH given in ER, AVOID bolus and start next dose/drip 12 hrs after ER dosage.&nb sp; M ust program rate using programmab le infusion pump.&nbsp ; Ngoc ck with the ordering provider first prior to any administra tion should the patient be on existing/a dditional anticoagul ant therapy. Rang e, Dosing and Testing: &nbs p;[facility], AND [facility] ONLY &nbs p; - aPTT < 35: & nbsp;Bolus 5000 units, increase rate 300 units/hr&n bsp; - aPTT 35-44:&nbs p; Marv jj 3000 units, increase rate 200 units/hr&n bsp; - aPTT 45-54:&nbs p; In crease rate 100 units/hr&n bsp; - aPTT 55-85:&nbs p; NO CHANGE&nbs p; - aPTT 86-95:&nbs p; De crease rate 100 units/hr&n bsp; - aPTT 96-120:&nb sp; H old 30 minutes, decrease rate 150 units/hr&n bsp; - aPTT > 120:&n bsp; Hold 60 minutes, decrease rate 200 units/hr&n bsp; Check aPTT 6 hours after initiation , then Q6H after every change, aPTT Q12H once therapeuti c levels are reached.&n bsp; &nbs p; __ &n bsp;FOR [facility] ONLY - aPTT < 40: & nbsp;Bolus 5000 units, increase rate 300 units/hr&n bsp; - aPTT 40-49:&nbs p; Marv jj 3000 units, increase rate 200 units/hr&n bsp; - aPTT 50-59:&nbs p; In crease rate 100 units/hr&a mp;nbsp; - aPTT 60-85:&nbs p; NO CHANGE&nbs p; - aPTT 86-95:&nbs p; De crease rate 100 units/hr&n bsp; - aPTT 96-120:&nb sp; H old 30 minutes, decrease rate 150 units/hr&n bsp; - aPTT > 120: Hold 60 minutes, decrease rate 200 units/hr&n bsp; Check aPTT 6 hours after initiation , then Q6H after every change, aPTT Q12H once therapeuti c levels are reached.&n bsp; DO NOT ADJUST INITIAL BOLUS OR INITIAL INFUSION RATE.
apixaban 2020-11 Yes 1291 Please Univers (ELIQUIS) 5 - take 2 ity of mg tablet 00:00: tablets [place] 00 twice Medical daily for Branch one week, and then 1 tablet twice daily for the remainder of duration Indication s: a clot in the lung apixaban 2020-11 Yes 1291 Please Univers (ELIQUIS) 5 - take 2 ity of mg tablet 00:00: tablets [place] 00 twice Medical daily for Branch one week, and then 1 tablet twice daily for the remainder of duration Indication s: a clot in the lung apixaban 2020-11 Yes 1291 Please Univers (ELIQUIS) 5 - take 2 ity of mg tablet 00:00: tablets [place] 00 twice Medical daily for Branch one week, and then 1 tablet twice daily for the remainder of duration Indication s: a clot in the lung apixaban 2020-11- No 1291 Please Univer s (ELIQUIS) 5 11-23 take 2 ity o f mg tablet 00:00: 00:00 tablets [place] :00 twice Medical daily for Branch one week, and then 1 tablet twice daily for the remainder of duration Indication s: a clot in the lung apixaban 2020-11- No 1291 Please Univer s (ELIQUIS) 5 11-23 take 2 ity o f mg tablet 00:00: 00:[place] 00 :00 twice Medical daily for Branch one week, and then 1 tablet twice daily for the remainder of duration Indication s: a clot in the lung fluticasone 2020-11 Yes 1{spray 1 [place], Univers propionate 1-14 } Nasal, ity of 50 17:00: DAILY, [place] mcg/actuati 00 First dose Me dical on nasal on [place] Branch spray 1 09/22/21 [place] at 1100, Until Discontinu ed, Routine sodium 2020-11 Yes 1{spray 1 [place], [facility] ers chloride -14 } Nasal, ity of (OCEAN MIST 17:00: TID, First [place] NASAL) 0.65 00 dose on Medic al % nasal [place] Branch spray 1 09/22/21 [place] at 1100, Until Discontinu ed, Routine metoprolol 2020-11- No 50mg 50 mg, [facility] ers tartrate -14 11-14 Oral, ity of (LOPRESSOR) 04:00: 05:23 ONCE, 1 [place] tablet 50 00 :00 dose, On Medica l mg [facility] 09/21/21 at 2200, Routine SERTraline 2020-11 Yes 25mg 25 mg, Unive rs (ZOLOFT) -14 Oral, QHS, ity o f tablet 25 03:00: First [place] mg 00 on [facility] 09/21/21 Branch at 2100, Until Discontinu ed, Routine pantoprazol 2020-11 Yes 40mg 40 mg, Univ ers e - Oral, ity of (PROTONIX) 15:00: DAILY, [place] EC tablet 00 First dose Medi [facility] 40 mg on [facility] Branch 09/21/21 at 0900, Until Discontinu ed, Routine heparin 2020-11- No 12U/kg/ 12 Univer s 25,000 -13 11-15 h Units/kg/h ity of Units/250 07:15: 12:47 r ?170.4 Madan as mL 37 :34 kg (20.448 Medical (Premixed mL/hr, Branch Bag) in rounded to 0.45 % NS 20.45 mL/hr), IV Infusion, TITRATE, Parameters in Admin. Instr., Starting on [facility] 09/21/21 at 0115
CA UTION - If LMWH given in ER, AVOID bolus and start next dose/drip 12 hrs after ER dosage.&nb sp; M ust program rate using programmab le infusion pump.&nbsp ; Ngoc ck with the ordering provider first prior to any administra tion should the patient be on existing/a dditional anticoagul ant therapy. Rang e, Dosing and Testing: &nbs p;[facility], [facility], AND [facility] ONLY &nbs p; - aPTT < 35: & nbsp;Bolus 5000 units, increase rate 300 units/hr&n bsp; - aPTT 35-44:&nbs p; Marv jj 3000 units, increase rate 200 units/hr&n bsp; - aPTT 45-54:&nbs p; In crease rate 100 units/hr&a mp;nbsp; - aPTT 55-85:&nbs p; NO CHANGE&nbs p; - aPTT 86-95:&nbs p; De crease rate 100 units/hr&n bsp; - aPTT 96-120:&nb sp; H old 30 minutes, decrease rate 150 units/hr&n bsp; - aPTT > 120: Hold 60 minutes, decrease rate 200 units/hr&a mp;nbsp;&n bsp;Check aPTT 6 hours after initiation , then Q6H after every change, aPTT Q12H once therapeuti c levels are reached.&n bsp; &nbs p; __ &n bsp;FOR [facility] ONLY - aPTT < 40: & nbsp;Bolus 5000 units, increase rate 300 units/hr&n bsp; - aPTT 40-49:&nbs p; Marv jj 3000 units, increase rate 200 units/hr&n bsp; - aPTT 50-59:&nbs p; In crease rate 100 units/hr&n bsp; - aPTT 60-85:&nbs p; NO CHANGE&nbs p; - aPTT 86-95:&nbs p; De crease rate 100 units/hr&n bsp; - aPTT 96-120:&nb sp; H old 30 minutes, decrease rate 150 units/hr&n bsp; - aPTT > 120: Hold 60 minutes, decrease rate 200 units/hr&n bsp; Check aPTT 6 hours after initiation , then Q6H after every change, aPTT Q12H once therapeuti c levels are reached.&n bsp; DO NOT ADJUST INITIAL BOLUS OR INITIAL INFUSION RATE.
Sliding 2020-11 Yes Subcutaneo Univ ers Scale 1-13 us, AC+HS, ity of Insulin-Reg 06:45: First dose [place] ular + Fsbg 00 on [facility] Medica l Testing 09/21/21 Branch at 0045, Until Discontinu ed, Routine acetaminoph 2020-11 Yes 650mg 650 mg, Un roberto en 11-21 Oral, ity of (TYLENOL) 06:40: Q6HPRN, [place] tablet 650 45 Starting Medic al mg on [facility] Branch 09/21/21 at 0040, Until Discontinu ed, Routine, Pain (scale 1-3) dicyclomine 2020-11- No 20mg Take 20 mg Univers 20 mg 11-21 by mouth 4 ity of tablet 00:29: 00:00 (four) [place] 09 :00 times Medical daily. Branch lansoprazol 2020-11- No 30mg Take 30 mg Univers e 30 mg 11-21 by mouth ity of capsule 00:28: 00:00 daily. [place] 54 :00 [facility] Nitrofurant 2020-11 Yes [id number] 100mg Take 1 Anayeli oin Monohyd 1-10 capsule Seybo ld Macro 00:00: (100 mg (Macrobid) 00 total) by 100 MG oral mouth 2 Capsule times daily Nitrofurant 2020-11 Yes [id number] 100mg Take 1 Anayeli oin Monohyd 1-10 capsule Seybo ld Macro 00:00: (100 mg (Macrobid) 00 total) by 100 MG oral mouth 2 Capsule times daily Nitrofurant 2020-11 Yes [id number] 100mg Take 1 Anayeli oin Monohyd 1-10 capsule Seybo ld Macro 00:00: (100 mg (Macrobid) 00 total) by 100 MG oral mouth 2 Capsule times daily Nitrofurant 2020-11 Yes [id number] 100mg Take 1 Anayeli oin Monohyd 1-10 capsule Seybo ld Macro 00:00: (100 mg (Macrobid) 00 total) by 100 MG oral mouth 2 Capsule times daily Nitrofurant 2020-11- No [id number] 100mg Take 1 Anayeli oin Monohyd 1-10 11-17 capsule Seyb old Macro 00:00: 00:00 (100 mg - (Macrobid) 00 :00 total) by Exte rna 100 MG oral mouth 2 l Capsule times daily Ibuprofen 2020-11 Yes [id number] TAKE ONE Anayeli 600 MG oral 1-09 TABLET BY Sey bold Tablet 00:00: MOUTH 00 EVERY 6 HOURS NEEDED FOR PAIN Ibuprofen 2020-11 Yes [id number] TAKE ONE Anayeli 600 MG oral 1-09 TABLET BY Sey bold Tablet 00:00: MOUTH 00 EVERY 6 HOURS NEEDED FOR PAIN Ibuprofen 2020-11 Yes [id number] TAKE ONE Anayeli 600 MG oral 1-09 TABLET BY Sey bold Tablet 00:00: MOUTH 00 EVERY 6 HOURS NEEDED FOR PAIN Ibuprofen 2020-11 Yes [id number] TAKE ONE Anayeli 600 MG oral 1-09 TABLET BY Sey bold Tablet 00:00: MOUTH 00 EVERY 6 HOURS NEEDED FOR PAIN Ibuprofen 2020-11 Yes [id number] TAKE ONE Anayeli 600 MG oral 1-09 TABLET BY Sey bold Tablet 00:00: MOUTH - 00 EVERY 6 Externa HOURS l NEEDED FOR PAIN Dulaglutide 2020-11 Yes [id number] 3mg Inject 3 Anayeli (Trulicity) 1-06 mg into Seybo ld 1.5 00:00: the skin MG/0.5ML 00 once a subcutaneou week s Solution Pen-injecto r Dulaglutide 2020-11- No [id number] 3mg Inject 3 Anayeli (Trulicity) 1-06 12-28 mg into Seyb old 1.5 00:00: 00:00 the skin MG/0.5ML 00 :00 once a subcutaneou week s Solution Pen-injecto r Sertraline 2020-11 Yes [id number] 50mg Take 1 K elsey HCl 50 MG 11-10 tablet (50 Seyb old oral Tablet 00:00: mg total) 00 by mouth daily Medroxyprog 2020-11- No [id number] 150mg Anayeli esterone 11-09 Seybold Acetate 14:45: 14:44 (DEPO-PROVE 00 :00 RA) 150 mg/mL - Once Every 3 Months Medroxyprog 2020-11- No [id number] 150mg 150 mg, Anayeli esterone 11-09 intramuscu Seyb old Acetate 14:45: 14:44 lar, EVERY (DEPO-PROVE 00 :00 3 MONTHS, RA) 150 4 doses, mg/mL - First dose Once Every on Thu 3 09/09/21 at 0945, Last dose on Thu06/06/22 at 0945 Medroxyprog 2020-11- No [id number] 150mg Anayeli esterone 11-09 Seybold Acetate 14:45: 14:44 (DEPO-PROVE 00 :00 RA) 150 mg/mL - Once Every 3 Months Medroxyprog 2020-11- No [id number] 150mg Anayeli esterone 11-09 Seybold Acetate 14:45: 14:44 (DEPO-PROVE 00 :00 RA) 150 mg/mL - Once Every 3 Months Sucralfate 2020-11- No 1g Take 1 g Ke l[place] 1 g oral 11-09 by mouth 4 Seyb old Tablet 09:36: 00:00 times 14 :00 daily Pantoprazol 2020-11- No 40mg Take 40 mg Anayeli e Sodium 40 11-09 by mouth Sey bold MG oral 09:35: 00:00 daily Tablet 48 :00 Delayed Response Lansoprazol 2020-11 Yes 30mg Take 30 mg Anayeli e 30 MG 11-09 by mouth Seybold oral 08:57: daily Delayed 50 Release Capsule Escitalopra 2020-11 Yes [id number] 10mg Take 1 Anayeli m Oxalate 11-09 tablet (10 Seyb old 10 MG oral 00:00: mg total) Tablet 00 by mouth daily hydrOXYzine 2020-11 Yes [id number] 10mg Q.[id number] Take 1 Anayeli HCl 10 MG 11-09 [id number] tablet (10 Seybold oral Tablet 00:00: 3D mg total) 00 by mouth 3 times daily as needed for itching or anxiety hydrOXYzine 2020-11 Yes [id number] 10mg Q.[id number] Take 1 Anayeli HCl 10 MG 11-09 [id number] tablet (10 Seybold oral Tablet 00:00: 3D mg total) 00 by mouth 3 times daily as needed for itching or anxiety hydrOXYzine 2020-11 Yes [id number] 10mg Q.[id number] Take 1 Anayeli HCl 10 MG 11-09 [id number] tablet (10 Seybold oral Tablet 00:00: 3D mg total) 00 by mouth 3 times daily as needed for itching or anxiety Fluconazole 2020-11- No Kelse y 150 MG oral 0-18 - Seybold Tablet 00:00: 00:00 00 :00 Metoprolol 2020-11- No 50mg Take 50 mg Anayeli Succinate 0-13 10-13 by mouth Seybo ld 50 MG oral 10:01: 00:00 daily TABLET SR 57 :00 24 HR Lansoprazol 2020-11 Yes 30mg Take 30 mg Anayeli e 30 MG 0-13 by mouth Seybold oral 09:35: daily Delayed 43 Release Capsule Pantoprazol 2020-11 Yes 40mg Take 40 mg Anayeli e Sodium 40 0-13 by mouth Seyb old MG oral 09:35: daily Tablet 43 Delayed Response Sucralfate 2020-11 Yes 1g Take 1 g Giovanny sey 1 g oral 0-13 by mouth 4 Seybo ld Tablet 09:35: times 43 daily Metoprolol 2020-11 Yes [id number] 50mg Take 1 K elsey Succinate 0-13 tablet (50 Seyb old 50 MG oral 00:00: mg total) TABLET SR 00 by mouth 24 HR daily Empaglifloz 2020-11 Yes [id number] 25mg Take 25 mg Anayeli in 0-13 by mouth Seybold (Jardiance) 00:00: daily 25 MG oral 00 Tablet Dulaglutide 2020-11 Yes [id number] 1.5mg Inject 1.5 Anayeli (Trulicity) 0-13 mg into Seybo ld 1.5 00:00: the skin MG/0.5ML 00 once a subcutaneou week s Solution Pen-injecto r Nystatin-Tr 2020-11 Yes [id number] Apply to Anayeli iamcinolone 0-13 affected Seyb old 954845-5.1 00:00: area twice UNIT/GM-% 00 daily as apply needed for externally irritation Cream Ibuprofen 2020-11 Yes [id number] 600mg Q6H Take 1 K elsey 600 MG oral 0-13 tablet Seybol d Tablet 00:00: (600 mg 00 total) by mouth every 6 hours as needed for pain Metoprolol 2020-11 Yes [id number] 50mg Take 1 K elsey Succinate 0-13 tablet (50 Seyb old 50 MG oral 00:00: mg total) TABLET SR 00 by mouth 24 HR daily Empaglifloz 2020-11 Yes [id number] 25mg Take 25 mg Anayeli in 0-13 by mouth Seybold (Jardiance) 00:00: daily 25 MG oral 00 Tablet Nystatin-Tr 2020-11 Yes [id number] Apply to Anayeli iamcinolone 0-13 affected Seyb old 654007-7.1 00:00: area twice UNIT/GM-% 00 daily as apply needed for externally irritation Cream Metoprolol 2020-11 Yes [id number] 50mg Take 1 K elsey Succinate 0-13 tablet (50 Seyb old 50 MG oral 00:00: mg total) TABLET SR 00 by mouth 24 HR daily Empaglifloz 2020-11 Yes [id number] 25mg Take 25 mg Anayeli in 0-13 by mouth Seybold (Jardiance) 00:00: daily 25 MG oral 00 Tablet Nystatin-Tr 2020-11 Yes [id number] Apply to Anayeli iamcinolone 0-13 affected Seyb old 443619-4.1 00:00: area twice UNIT/GM-% 00 daily as apply needed for externally irritation Cream Nystatin-Tr 2020-11 Yes [id number] Apply to Anayeli iamcinolone 0-13 affected Seyb old 926990-2.1 00:00: area twice UNIT/GM-% 00 daily as apply needed for externally irritation Cream Nystatin-Tr 2020-11 Yes [id number] Apply to Anayeli joyainolone 0-13 affected Seyb old 529119-7.1 00:00: area twice UNIT/GM-% 00 daily as apply needed for externally irritation Cream Metoprolol 2020-11 Yes [id number] 50mg Take 1 K elsey Succinate 0-13 tablet (50 Seyb old 50 MG oral 00:00: mg total) TABLET SR 00 by mouth 24 HR daily Empaglifloz 2020-11 Yes [id number] 25mg Take 25 mg Anayeli in 0-13 by mouth Seybold (Jardiance) 00:00: daily 25 MG oral 00 Tablet Dulaglutide 2020-11 Yes [id number] 1.5mg Inject 1.5 Anayeli (Trulicity) 0-13 mg into Seybo ld 1.5 00:00: the skin MG/0.5ML 00 once a subcutaneou week s Solution Pen-injecto r Nystatin-Tr 2020-11 Yes [id number] Apply to Anayeli joyainolone 0-13 affected Seyb old 324742-4.1 00:00: area twice UNIT/GM-% 00 daily as apply needed for externally irritation Cream Ibuprofen 2020-11 Yes [id number] 600mg Q6H Take 1 K elsey 600 MG oral 0-13 tablet Seybol d Tablet 00:00: (600 mg 00 total) by mouth every 6 hours as needed for pain Nystatin-Tr 2020-11- No [id number] Apply to Anayeli iamcinolone 0-13 11-18 affected Sey bold 077809-0.1 00:00: 00:00 area twice - UNIT/GM-% 00 :00 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 needed for l externally irritation Cream Fluconazole 2020-11- No [id number] 150mg Take 1 Anayeli 150 MG oral 0-13 10-14 tablet Seybo ld Tablet 00:00: 04:59 (150 mg 00 :00 total) by mouth once for 1 dose Metoprolol Yes 50mg Take 50 mg K elsey Succinate 9-17 by mouth Seybol d 50 MG oral 15:42: daily TABLET SR 22 24 HR Lansoprazol Yes 30mg Take 30 mg Anayeli e 30 MG 9-17 by mouth Seybold oral 15:42: daily Delayed 22 Release Capsule Pantoprazol Yes 40mg Take 40 mg Anayeli e Sodium 40 9-17 by mouth Seyb old MG oral 15:42: daily Tablet 22 Delayed Response Sucralfate Yes 1g Take 1 g Giovanny sey 1 g oral 9-17 by mouth 4 Seybo ld Tablet 15:42: times 22 daily Amoxicillin Yes [id number] 875mg Take 1 Anayeli 875 MG oral 9-17 tablet Seybol d Tablet 00:00: (875 mg 00 total) by mouth 2 times daily Dulaglutide Yes [id number] 1.5mg Inject 1.5 Anayeli (Trulicity) 9-17 mg into Seybo ld 1.5 00:00: the skin MG/0.5ML 00 once a subcutaneou week s Solution Pen-injecto r Acetaminoph Yes [id number] 1{tbl} Q4H Take 1 Anayeli en-Codeine 9-17 [id number] tablet by Sey bold 300-30 MG 00:00: mouth oral Tablet 00 every 4 hours as needed for pain Amoxicillin Yes [id number] 875mg Take 1 Anayeli 875 MG oral 9-17 tablet Seybol d Tablet 00:00: (875 mg 00 total) by mouth 2 times daily Acetaminoph Yes [id number] 1{tbl} Q4H Take 1 Anayeli en-Codeine 9-17 tablet by Seyb old 300-30 MG 00:00: mouth oral Tablet 00 every 4 hours as needed for pain Amoxicillin 0 2020- No [id number] 875mg Take 1 Anayeli 875 MG oral 9-17 11- tablet Seybo ld Tablet 00:00: 00:00 (875 mg 00 :00 total) by mouth 2 times daily Acetaminoph 2020- No [id number] 1{tbl} Q4H Take 1 Anayeli en-Codeine 9-17 11-01 tablet by Sey bold 300-30 MG 00:00: 00:00 mouth oral Tablet 00 :00 every 4 hours as needed for pain Dulaglutide 2020- No [id number] 1.5mg Inject 1.5 Anayeli (Trulicity) 07-26 10- mg into Seyb old 1.5 00:00: 00:00 the skin MG/0.5ML 00 :00 once a subcutaneou week s Solution Pen-injecto r NEOMYCIN-PO 2020- No [id number] 2[drp] Place 2 Anayeli LYMYXIN-HC, 07-26 [id number] drops into Seybold OTIC, 1 % 00:00: 04:59 the right otic 00 :00 ear 3 Solution times daily for 7 days Empaglifloz Yes [id number] 25mg Take 25 mg Anayeli in 06-21 by mouth Seybold (Jardiance) 00:00: daily 25 MG oral 00 Tablet Dulaglutide Yes [id number] .75mg Inject Anayeli (Trulicity) 06-21 0.75 mg Seybo ld 0.75 00:00: into the MG/0.5ML 00 skin once subcutaneou a week s Solution Pen-injecto r Empaglifloz 2020- No [id number] 25mg Take 25 mg Anayeli in 06-21- by mouth Seybold (Jardiance) 00:00: 00:00 daily 25 MG oral 00 :00 Tablet Dulaglutide 2020- No [id number] .75mg Inject Anayeli (Trulicity) 06-21 0.75 mg Seyb old 0.75 00:00: 00:00 into the MG/0.5ML 00 :00 skin once subcutaneou a week s Solution Pen-injecto r Loperamide Yes [id number] TAKE ONE Anayeli HCl 2 MG 7-30 CAPSULE BY Seybo ld oral 00:00: MOUTH FOUR Capsule 00 TIMES A DAY NEEDED FOR DIARRHEA Loperamide Yes [id number] TAKE ONE Anayeli HCl 2 MG 7-30 CAPSULE BY Seybo ld oral 00:00: MOUTH FOUR Capsule 00 TIMES A DAY NEEDED FOR DIARRHEA Loperamide 2020- No [id number] TAKE ONE Anayeli HCl 2 MG 7-30 - CAPSULE BY Seyb old oral 00:00: 00:00 MOUTH FOUR Capsule 00 :00 TIMES A DAY NEEDED FOR DIARRHEA Ondansetron 2020-0 Yes [id number] 4mg Q8H Take 1 Anayeli HCl 4 MG 7-07 tablet (4 Seybol d oral Tablet 00:00: mg total) 00 by mouth every 8 hours as needed for nausea Ondansetron 2020-0 Yes [id number] 4mg Q8H Take 1 Anayeli HCl 4 MG 7-07 tablet (4 Seybol d oral Tablet 00:00: mg total) 00 by mouth every 8 hours as needed for nausea Ondansetron 2020-0 Yes [id number] 4mg Q8H Take 1 Anayeli HCl 4 MG 7-07 tablet (4 Seybol d oral Tablet 00:00: mg total) 00 by mouth every 8 hours as needed for nausea Ondansetron 2020-0 Yes [id number] 4mg Q.[id number] Take 1 Anayeli HCl 4 MG 7-07 [id number] tablet (4 Seybold oral Tablet 00:00: 3D mg total) 00 by mouth every 8 hours as needed for nausea Ondansetron 2020-0 Yes [id number] 4mg Q.[id number] Take 1 Anayeli HCl 4 MG 7-07 [id number] tablet (4 Seybold oral Tablet 00:00: 3D mg total) 00 by mouth every 8 hours as needed for nausea Ondansetron 2020-0 Yes [id number] 4mg Q8H Take 1 Anayeli HCl 4 MG 7-07 tablet (4 Seybol d oral Tablet 00:00: mg total) 00 by mouth every 8 hours as needed for nausea Ondansetron 2020-0 Yes [id number] 4mg Q8H Take 1 Anayeli HCl 4 MG 7-07 tablet (4 Seybol d oral Tablet 00:00: mg total) 00 by mouth every 8 hours as needed for nausea Ondansetron 2020-0 2- No [id number] 4mg Q.[id number] Take 1 Anayeli HCl 4 MG 7-07 11-18 [id number] tablet (4 Seybold oral Tablet 00:00: 00:00 3D mg total) - 00 :00 by mouth Externa every 8 l hours as needed for nausea Ibuprofen 2020-0 Yes [id number] 600mg Q8H Take 1 K elsey 600 MG oral 6-02 tablet Seybol d Tablet 00:00: (600 mg 00 total) by mouth every 8 hours as needed for pain Ibuprofen 2020- No [id number] 600mg Q8H Take 1 Anayeli 600 MG oral 6-02 10-13 tablet Seybo ld Tablet 00:00: 00:00 (600 mg 00 :00 total) by mouth every 8 hours as needed for pain Medroxyprog 2021- No [id number] 150mg Anayeli esterone 5-19 -13 Seybold Acetate 17:45: 18:59 (DEPO-PROVE 00 :00 RA) 150 mg/mL - Once Every 3 Months Medroxyprog 2021- No [id number] 150mg Anayeli esterone 5-19 -13 Seybold Acetate 17:45: 18:59 (DEPO-PROVE 00 :00 RA) 150 mg/mL - Once Every 3 Months Medroxyprog 2021- No [id number] 150mg Anayeli esterone 5-28 12-13 Seybold Acetate 17:45: 18:59 (DEPO-PROVE 00 :00 RA) 150 mg/mL - Once Every 3 Months Medroxyprog 2021- No [id number] 150mg Anayeli esterone 5-19 -13 Seybold Acetate 17:45: 18:59 (DEPO-PROVE 00 :00 RA) 150 mg/mL - Once Every 3 Months Medroxyprog 2021- No [id number] 150mg Anayeli esterone 5-19 -13 Seybold Acetate 17:45: 18:59 (DEPO-PROVE 00 :00 RA) 150 mg/mL - Once Every 3 Months Losartan Yes Anayeli Potassium 3-21 Seybold 25 MG oral 00:00: Tablet 00 Losartan Yes Anayeli Potassium 3-21 Seybold 25 MG oral 00:00: Tablet 00 Losartan Yes Anayeli Potassium 3-21 Seybold 25 MG oral 00:00: Tablet 00 Losartan 2020- No Anayeli Potassium 3-21 11-19 Seybold 25 MG oral 00:00: 00:00 Tablet 00 :00 losartan 25 2020-1 2020- No 25mg Take 25 mg Univers mg tablet 12-18 by mouth ity o f 20:16: 00:00 daily. [place] 24 :00 Medical Branch losartan 25 2019- 2020- No 25mg Take 25 mg Univers mg tablet 12-18 by mouth ity o f 20:16: 00:00 daily. [place] 24 :00 Medical Branch metFORMIN 2019- 2020- No 500mg Take 500 Un roberto 500 mg 12-18 mg by ity of tablet 20:07: 00:00 mouth 2 [place] 11 :00 (two) Medical times Branch daily with meals. metFORMIN 2019-11- No 500mg Take 500 Un roberto 500 mg 12-18 mg by ity of tablet 20:07: 00:00 mouth 2 [place] 11 :00 (two) Medical times Branch daily with meals. ondansetron 2019-11 2020- No 4mg Take 4 mg Univers 4 mg tablet 12-18 by mouth ity of 20:07: 00:00 every 8 [place] 02 :00 (eight) Medical hours as Branch needed. ondansetron 2019-11- No 4mg Take 4 mg Univers 4 mg tablet 12-18 by mouth ity of 20:07: 00:00 every 8 [place] 02 :00 (eight) Medical hours as Branch needed. SUCRALFATE 2019- 2020- No Take by Uni vers ORAL 12-18 mouth. ity of 20:06: 00:00 [place] 56 :00 Medical Branch SUCRALFATE 2019- 2020- No Take by Uni vers ORAL 12-18 mouth. ity of 20:06: 00:00 [place] 56 :00 Medical Branch SITagliptin 2019-11 2020- No 100mg Take 100 Univers (JANUVIA) 12-18- mg by ity of 100 mg 20:06: 00:00 mouth [place] tablet 43 :00 daily. Medical Branch SITagliptin 2019- 2020- No 100mg Take 100 Univers (JANUVIA) 12-18- mg by ity of 100 mg 20:06: 00:00 mouth [place] tablet 43 :00 daily. Medical Branch methocarbam 2019- 2020- No 750mg Take 750 Univers oL 750 mg 12-18 mg by ity of tablet 20:06: 00:00 mouth 4 [place] 17 :00 (four) Medical times Branch daily. methocarbam 2019-11 2020- No 750mg Take 750 Univers oL 750 mg 2-09 12-09 mg by ity of tablet 20:06: 00:00 mouth 4 [place] 17 :00 (four) Medical times Branch daily. metoprolol 2019-11 Yes 50mg Take 50 mg U nivers succinate 2-09 by mouth ity of XL 50 mg 24 19:51: daily. [place] tablet 43 [facility] dicyclomine 2019-11 Yes 20mg Take 20 mg Univers 20 mg 2-09 by mouth 4 ity of tablet 19:51: (four) [place] [address] times Medical daily. Branch lansoprazol 2019-11 Yes 30mg Take 30 mg Univers e 30 mg 2-09 by mouth ity of capsule 19:51: daily. [address] metoprolol 2019-11 Yes 50mg Take 50 mg U nivers succinate 2-09 by mouth ity of XL 50 mg 24 19:51: daily. [place] tablet 43 [facility] Branch dicyclomine 2019-11 Yes 20mg Take 20 mg Univers 20 mg 2-09 by mouth 4 ity of tablet 19:51: (four) [place] [address] times [facility] daily. Branch lansoprazol 2019-11 Yes 30mg Take 30 mg Univers e 30 mg 2-09 by mouth ity of capsule 19:51: daily. [address] metoprolol 2019-11 Yes 50mg Take 50 mg U nivers succinate 2-09 by mouth ity of XL 50 mg 24 19:51: daily. [place] tablet 43 [facility] Branch dicyclomine 2019-11 Yes 20mg Take 20 mg Univers 20 mg 2-09 by mouth 4 ity of tablet 19:51: (four) [address] daily. Branch lansoprazol 2019-11 Yes 30mg Take 30 mg Univers e 30 mg 2-09 by mouth ity of capsule 19:51: daily. [address] metoprolol 2019-11 Yes 50mg Take 50 mg U nivers succinate 2-09 by mouth ity of XL 50 mg 24 19:51: daily. [place] hr tablet 43 [facility] Branch dicyclomine 2019-11 Yes 20mg Take 20 mg Univers 20 mg 2-09 by mouth 4 ity of tablet 19:51: (four) [place] 43 times Medical daily. Branch lansoprazol 2020-1 Yes 30mg Take 30 mg Univers e 30 mg 2-09 by mouth ity of capsule 19:51: daily. [place] 43 Medical Branch empaglifloz 2020-1 Yes [id number] 10mg Take 10 mg Univers in 2-09 by mouth ity of (JARDIANCE) 00:00: every [place] 10 mg Tab 00 morning. Medica l Branch FREESTYLE 2020-1 Yes [id number] Use as Un roberto LITE METER 2-09 directed ity o f Kit 00:00: [place] 00 Medical Branch FREESTYLE 2020-1 Yes [id number] Use as Un roberto LITE STRIPS 2-09 directed ity of strip 00:00: daily [place] Medical Branch FREESTYLE 2020-1 Yes [id number] Use as Un roberto LANCETS 28 2-09 directed ity o f gauge Misc 00:00: daily [place] 00 Medical Branch empaglifloz 2020-1 Yes [id number] 10mg Take 10 mg Univers in 2-09 by mouth ity of (JARDIANCE) 00:00: every [place] 10 mg Tab 00 morning. Medica l Branch losartan 25 2020-1 Yes [id number] 25mg Take 1 Univers mg tablet 2-09 tablet by ity o f 00:00: mouth [place] 00 daily. Medical Branch FREESTYLE 2020-1 Yes [id number] Use as Un roberto LITE METER 2-09 directed ity o f Kit 00:00: [place] 00 Medical Branch FREESTYLE 2020-1 Yes [id number] Use as Un roberto LITE STRIPS 2-09 directed ity of strip 00:00: daily [place] Medical Branch FREESTYLE 2020-1 Yes [id number] Use as Un roberto LANCETS 28 2-09 directed ity o f gauge Misc 00:00: daily [place] 00 Medical Branch empaglifloz 2020-1 Yes [id number] 10mg Take 10 mg Univers in 2-09 by mouth ity of (JARDIANCE) 00:00: every [place] 10 mg Tab 00 morning. Medica l Branch FREESTYLE 2020-1 Yes [id number] Use as Un roberto LITE METER 2-09 directed ity o f Kit 00:00: [place] Medical Branch FREESTYLE 2020-1 Yes [id number] Use as Un roberto LITE STRIPS 2-09 directed ity of strip 00:00: daily [place] Medical Branch FREESTYLE 2020-1 Yes [id number] Use as Un roberto LANCETS 28 2-09 directed ity o f gauge Misc 00:00: daily Medical Branch empaglifloz 2020-1 Yes [id number] 10mg Take 10 mg Univers in 2-09 by mouth ity of (JARDIANCE) 00:00: every [place] 10 mg Tab 00 morning. Medica l Branch FREESTYLE 2020-1 Yes [id number] Use as Un roberto LITE METER 2-09 directed ity o f Kit 00:00: [place] 00 Medical Branch FREESTYLE 2020-1 Yes [id number] Use as Un roberto LITE STRIPS 2-09 directed ity of strip 00:00: daily Medical Branch FREESTYLE 2020-1 Yes [id number] Use as Un roberto LANCETS 28 2-09 directed ity o f gauge Misc 00:00: daily Medical Branch empaglifloz 2020-1 Yes [id number] 10mg Take 10 mg Univers in 2-09 by mouth ity of (JARDIANCE) 00:00: every [place] 10 mg Tab 00 morning. Medica l Branch losartan 25 2020-1 Yes [id number] 25mg Take 1 Univers mg tablet 2-09 tablet by ity o f 00:00: mouth [place] daily. Medical Branch FREESTYLE 2020-1 Yes [id number] Use as Un roberto LITE METER 2-09 directed ity o f Kit 00:00: [place] [facility] FREESTYLE 2020-1 Yes [id number] Use as Un roberto LITE STRIPS 2-09 directed ity of strip 00:00: daily Medical Branch FREESTYLE 2020-1 Yes [id number] Use as Un roberto LANCETS 28 2-09 directed ity o f gauge Misc 00:00: daily Medical Branch empaglifloz 2020-1 Yes [id number] 10mg Take 10 mg Univers in 2-09 by mouth ity of (JARDIANCE) 00:00: every [place] 10 mg Tab 00 morning. Medica l Branch losartan 25 2020-1 Yes [id number] 25mg Take 1 Univers mg tablet 2-09 tablet by ity o f 00:00: mouth [place] 00 daily. Medical Branch FREESTYLE 2020-1 Yes [id number] Use as Un roberto LITE METER 2-09 directed ity o f Kit 00:00: [place] 00 Medical Branch FREESTYLE 2020-1 Yes [id number] Use as Un roberto LITE STRIPS 2-09 directed ity of strip 00:00: daily Medical Branch FREESTYLE 2020-1 Yes [id number] Use as Un roberto LANCETS 28 2-09 directed ity o f gauge Misc 00:00: daily [place] [facility] empaglifloz 2020-1 Yes [id number] 10mg Take 10 mg Univers in 2-09 by mouth ity of (JARDIANCE) 00:00: every [place] 10 mg Tab 00 morning. Medica l Branch losartan 25 2019- Yes [id number] 25mg Take 1 Univers mg tablet 2-09 tablet by ity o f 00:00: mouth daily. Medical Branch FREESTYLE 2020-1 Yes [id number] Use as Un roberto LITE METER 2-09 directed ity o f Kit 00:00: [place] [facility] FREESTYLE 2020- Yes [id number] Use as Un roberto LITE STRIPS 2-09 directed ity of strip 00:00: daily Medical Branch FREESTYLE 2020-1 Yes [id number] Use as Un roberto LANCETS 28 2-09 directed ity o f gauge Misc 00:00: daily [place] [facility] Blood 2020-1 Yes Use as Anayeli Glucose 2-09 directed Seybold Monitoring 00:00: Suppl 00 (FreeStyle Lite) does not apply Device Blood 2020-1 Yes Use as Anayeli Glucose 2-09 directed Seybold Monitoring 00:00: Suppl 00 (FreeStyle Lite) does not apply Device Blood 2020-1 Yes Use as Anayeli Glucose 2-09 directed Seybold Monitoring 00:00: Suppl 00 (FreeStyle Lite) does not apply Device Blood 2020-1 Yes Use as Anayeli Glucose 2-09 directed Seybold Monitoring 00:00: Suppl 00 (FreeStyle Lite) does not apply Device Blood 2020-1 Yes Use as Anayeli Glucose 2-09 directed Seybold Monitoring 00:00: Suppl 00 (FreeStyle Lite) does not apply Device Losartan 2020-1 Yes 25mg Take 25 mg Giovanny sey Potassium 2-09 by mouth Seybol d 25 MG oral 00:00: daily Tablet 00 Losartan 2020-1 Yes 25mg Take 25 mg Giovanny sey Potassium 2-09 by mouth Seybol d 25 MG oral 00:00: daily Tablet 00 Blood 2019-11 Yes Use as Anayeli Glucose 12-18 directed Seybold Monitoring 00:00: Suppl 00 (FreeStyle Lite) does not apply Device Blood 2019-11- No Use as Anayeli Glucose 12-18 directed Seybold Monitoring 00:00: 00:00 - Suppl 00 :00 Externa (FreeStyle l Lite) does not apply Device losartan 25 2019-11- No [id number] 25mg Take 1 Univers mg tablet 12-18 tablet by ity of 00:00: 00:00 mouth [place] 00 :00 daily. Medical Branch Losartan 2019-11- No 25mg Take 25 mg Ke lsey Potassium 12-18 by mouth Seybo ld 25 MG oral 00:00: 00:00 daily Tablet 00 :00 azithromyci 2019-11 Yes Univer s n 250 mg 1-30 ity of tablet 00:00: [place] 00 Medical Branch bromphenira 2019-11 Yes Univer s mine-pseudo 1-30 ity of ephedrine-D 00:00: [facility] 00 Medical mg/5 mL Branch syrup azithromyci 2019-11- No Unive rs n 250 mg 130 10-17 ity of tablet 00:00: 00:00 [place] 00 :00 Medical Branch bromphenira 2019-11- No Unive rs mine-pseudo 1-30 09 ity of ephedrine-D 00:00: 00:00 [facility] 00 :00 Medical mg/5 mL Branch syrup azithromyci 2019-11- No Unive rs n 250 mg 1-30 12-09 ity of tablet 00:00: 00:00 [place] 00 :00 Medical Branch bromphenira 2019-11- No Unive rs mine-pseudo 1-30 09 ity of ephedrine-D 00:00: 00:00 [facility] 00 :00 Medical mg/5 mL Branch syrup pantoprazol 2019-11 Yes Univer s e 40 mg EC 0-03 ity of tablet 00:00: [place] 00 Medical Branch pantoprazol 2019-11- No Unive rs e 40 mg EC 0-03 12-09 ity of tablet 00:00: 00:00 [place] 00 :00 [facility] pantoprazol 2019-11 2020- No Unive rs e 40 mg EC 003 10-17 ity of tablet 00:00: 00:00 [place] 00 :00 [facility] meloxicam Yes Univers 15 mg 9-15 ity of tablet 00:00: [place] 00 [facility] meloxicam 2020- No Univers 15 mg 9-15 10-17 ity of tablet 00:00: 00:00 [place] 00 :00 [facility] meloxicam 2020- No Univers 15 mg 9-15 10-17 ity of tablet 00:00: 00:00 [place] 00 :00 [facility] Immunizations Ordered Immunization Filled Immunization Date Status Commen ts Source Name Name Covid-19 Vaccine 2021-03-18 Completed Anayeli hernandez (Moderna), Mrna-lnp, 00:00:00 David Protein, Pf, 100 Mcg/0.5ml,IM Covid-19 Vaccine 2021-03-18 Completed Anayeli hernandez (Moderna), Mrna-lnp, 00:00:00 David Protein, Pf, 100 Mcg/0.5ml,IM Covid-19 Vaccine 2021-03-18 Completed Anayeli hernandez (Moderna), Mrna-lnp, 00:00:00 David Protein, Pf, 100 Mcg/0.5ml,IM Covid-19 Vaccine 2021-03-18 Completed Anayeli hernandez (Moderna), Mrna-lnp, 00:00:00 David Protein, Pf, 100 Mcg/0.5ml,IM Covid-19 Vaccine 2021-03-18 Completed Anayeli hernandez (Moderna), Mrna-lnp, 00:00:00 David Protein, Pf, 100 Mcg/0.5ml,IM Covid-19 Vaccine 2021-03-18 Completed Anayeli hernandez (Moderna), Mrna-lnp, 00:00:00 David Protein, Pf, 100 Mcg/0.5ml,IM Covid-19 Vaccine 2021-03-18 Completed Anayeli hernandez Moderna (Spikevax), 00:00:00 Mrna-lnp, David Protein, Pf Covid-19 Vaccine 2021-03-18 Completed Anayeli hernandez Moderna (Spikevax), 00:00:00 Mrna-lnp, David Protein, Pf Covid-19 Vaccine 2021-03-18 Completed Anayeli brownzach Moderna (Spikevax), 00:00:00 Mrna-lnp, David Protein, Pf Covid-19 Vaccine 2021-03-18 Completed Anayeli brownzach Moderna (Spikevax), 00:00:00 Mrna-lnp, David Protein, Pf Covid-19 Vaccine 2021-03-18 Completed Anayeli brownzach Moderna (Spikevax), 00:00:00 - Ext ernal Mrna-lnp, David Protein, Pf Covid-19 Vaccine 2021-03-18 Completed Anayeli brownzach Moderna (Spikevax), 00:00:00 - Ext ernal Mrna-lnp, David Protein, Pf Covid-19 Vaccine 2021-03-18 Completed Anayeli esquivelmarvld (Moderna), Mrna-lnp, 00:00:00 David Protein, Pf, 100 Mcg/0.5ml,IM Covid-19 Vaccine 2021-03-18 Completed Anayeli esquivelbold (Moderna), Mrna-lnp, 00:00:00 David Protein, Pf, 100 Mcg/0.5ml,IM Covid-19 Vaccine 2021-03-18 Completed Anayeli esquivelmarvld (Moderna), Mrna-lnp, 00:00:00 David Protein, Pf, 100 Mcg/0.5ml,IM Covid-19 Vaccine 2021-03-18 Completed Anayeli esquivelbold (Moderna), Mrna-lnp, 00:00:00 David Protein, Pf, 100 Mcg/0.5ml,IM Covid-19 Vaccine 2021-02-21 Completed Anayeli Jay eybold (Moderna), Mrna-lnp, 00:00:00 David Protein, Pf, 100 Mcg/0.5ml,IM Covid-19 Vaccine 2021-02-21 Completed Anayeli Jay eybold (Moderna), Mrna-lnp, 00:00:00 David Protein, Pf, 100 Mcg/0.5ml,IM Covid-19 Vaccine 2021-02-21 Completed Anayeli esquivelbold (Moderna), Mrna-lnp, 00:00:00 David Protein, Pf, 100 Mcg/0.5ml,IM Covid-19 Vaccine 2021-02-21 Completed Anayeli hernandez Moderna (Spikevax), 00:00:00 Mrna-lnp, David Protein, Pf Covid-19 Vaccine 2021-02-21 Completed Anayeli Misty eybozach Moderna (Spikevax), 00:00:00 Mrna-lnp, David Protein, Pf Covid-19 Vaccine 2021-02-21 Completed Anayeli esquivelbozach Moderna (Spikevax), 00:00:00 - Ext ernal Mrna-lnp, David Protein, Pf Covid-19 Vaccine 2021-02-21 Completed Anayeli hernandez (Moderna), Mrna-lnp, 00:00:00 David Protein, Pf, 100 Mcg/0.5ml,IM Covid-19 Vaccine 2021-02-21 Completed Anayeli Misty david (Moderna), Mrna-lnp, 00:00:00 David Protein, Pf, 100 Mcg/0.5ml,IM Covid-19 Vaccine 2021-02-20 Completed Anayeli brownld (Moderna), Mrna-lnp, 00:00:00 David Protein, Pf, 100 Mcg/0.5ml,IM Covid-19 Vaccine 2021-02-20 Completed Anayeli esquivelbold (Moderna), Mrna-lnp, 00:00:00 David Protein, Pf, 100 Mcg/0.5ml,IM Covid-19 Vaccine 2021-02-20 Completed Anayeli brownld (Moderna), Mrna-lnp, 00:00:00 David Protein, Pf, 100 Mcg/0.5ml,IM Covid-19 Vaccine 2021-02-20 Completed Anayeli Jay alvinbold Moderna (Spikevax), 00:00:00 Mrna-lnp, David Protein, Pf Covid-19 Vaccine 2021-02-20 Completed Anayeli S eybold Moderna (Spikevax), 00:00:00 Mrna-lnp, David Protein, Pf Covid-19 Vaccine 2021-02-20 Completed Anayeli Jay eybozach Moderna (Spikevax), 00:00:00 - Ext ernal Mrna-lnp, David Protein, Pf Covid-19 Vaccine 2021-02-20 Completed Anayeli Jay eybold (Moderna), Mrna-lnp, 00:00:00 David Protein, Pf, 100 Mcg/0.5ml,IM Covid-19 Vaccine 2021-02-20 Completed Anayeli Jay eybold (Moderna), Mrna-lnp, 00:00:00 David Protein, Pf, 100 Mcg/0.5ml,IM Tdap- (Boostrix, 2017-08-06 Completed Anayeli Jay eybold Adacel) 00:00:00 Tdap- (Boostrix, 2017-08-06 Completed Anayeli S eybold Adacel) 00:00:00 Tdap- (Boostrix, 2017-08-06 Completed Anayeli S eybold Adacel) 00:00:00 Tdap- (Boostrix, 2017-08-06 Completed Anayeli S eybold Adacel) 00:00:00 Tdap- (Boostrix, 2017-08-06 Completed Anayeli S eybold Adacel) 00:00:00 Tdap- (Boostrix, 2017-08-06 Completed Anayeli S eybold Adacel) 00:00:00 - External Tdap- (Boostrix, 2017-08-06 Completed Anayeli S eybold Adacel) 00:00:00 Tdap- (Boostrix, 2017-08-06 Completed Anayeli S eybold Adacel) 00:00:00 Vital Signs Vital Name Observation Time Observation Value Comments Source Systolic blood 2022-09-26 21:19:00 102 mm[Hg] Anayeli Negronybelaine - pressure External Diastolic blood 2022-09-26 21:19:00 64 mm[Hg] Citlali villa Seybold - pressure External Heart rate 2022-09-26 21:19:00 98 /min Anayeli hernandez - External Body temperature 2022-09-26 21:19:00 36.06 Rosanna Bety esquivel Seybold - External Respiratory rate 2022-09-26 21:19:00 16 /min Bety esquivel Seybold - External Body height 2022-09-26 21:19:00 170.2 cm Anayeli hernandez - External Body weight 2022-09-26 21:19:00 178.264 kg Anayeli Jay eybold - External BMI 2022-09-26 21:19:00 61.55 kg/m2 Anayeli Jay eybold - External Systolic blood 2021-09-27 22:29:00 132 mm[Hg] Anayeli Seybold pressure Diastolic blood 2021-09-27 22:29:00 78 mm[Hg] Kelse y Seybold pressure Heart rate 2021-09-27 22:29:00 103 /min Anayeli Jay eybold Body temperature 2021-09-27 22:29:00 36.72 Rosanna Bety ey Seybold Respiratory rate 2021-09-27 22:29:00 14 /min Bety ey Seybold Body height 2021-09-27 22:29:00 170.2 cm Anayeli Jay eybold Body weight 2021-09-27 22:29:00 128.822 kg Anayeli Jay eybold BMI 2021-09-27 22:29:00 44.48 kg/m2 Anayeli esquivelbold Oxygen saturation in 2021-09-27 22:29:00 96 /min Anayeli Collado Arterial blood by Pulse oximetry Systolic blood 2021-09-23 22:43:00 148 mm[Hg] Univer sity of [facility] Diastolic blood 2021-09-23 22:43:00 81 mm[Hg] Unive rsity of pressure [facility] Heart rate 2021-09-23 22:43:00 97 /min [facility] Body temperature 2021-09-23 22:43:00 36.78 [facility] 2021-09-23 22:43:00 18 /min [facility] Oxygen saturation in 2021-09-23 22:43:00 95 /min University of Arterial blood by [facility] Pulse oximetry Branch Body height 2021-09-21 06:15:00 170.2 cm [facility] Body weight 2021-09-21 06:15:00 170.416 kg [facility] BMI 2021-09-21 06:15:00 58.84 kg/m2 [facility] Systolic blood 2021-09-09 13:48:00 108 mm[Hg] Anayeli Seybold pressure Diastolic blood 2021-09-09 13:48:00 88 mm[Hg] Kelse y Seybold pressure Heart rate 2021-09-09 13:48:00 102 /min Anayeli S eybold Body temperature 2021-09-09 13:48:00 36.17 Rosanna Ebty ey Seybold Respiratory rate 2021-09-09 13:48:00 20 /min Bety ey Seybold Body height 2021-09-09 13:48:00 170.2 cm Anayeli S eybold Body weight 2021-09-09 13:48:00 128.822 kg Anayeli S eybold BMI 2021-09-09 13:48:00 44.48 kg/m2 Anayeli S eybold Systolic blood 2021-08-21 14:24:00 134 mm[Hg] Anayeli Seybold pressure Diastolic blood 2021-08-21 14:24:00 72 mm[Hg] Kelse y Seybold pressure Heart rate 2021-08-21 14:24:00 106 /min Anayeli S eybold Body temperature 2021-08-21 14:24:00 35.17 Rosanna Bety ey Seybold Respiratory rate 2021-08-21 14:24:00 20 /min Beyt ey Seybold Body height 2021-08-21 14:24:00 152.4 cm Anayeli S eybold Body weight 2021-08-21 14:24:00 177.356 kg Anayeli S eybold BMI 2021-08-21 14:24:00 76.36 kg/m2 Anayeli S eybold Systolic blood 2021-07-26 20:38:00 124 mm[Hg] Anayeli Seybold pressure Diastolic blood 2021-07-26 20:38:00 76 mm[Hg] Kelse y Seybold pressure Heart rate 2021-07-26 20:38:00 108 /min Anayeli S eybold Body temperature 2021-07-26 20:38:00 35.11 Rosanna Bety ey Seybold Respiratory rate 2021-07-26 20:38:00 20 /min Bety ey Seybold Body height 2021-07-26 20:38:00 152.4 cm Anayeli S eybold Body weight 2021-07-26 20:38:00 177.084 kg Anayeli hernandez BMI 2021-07-26 20:38:00 76.24 kg/m2 Anayeli hernandez Systolic blood 2020-10-17 19:41:00 136 mm[Hg] Univer sity of [facility] Diastolic blood 2020-10-17 19:41:00 76 mm[Hg] [facility] Heart rate 2020-10-17 19:41:00 107 /min Universi ty [facility] Body height 2020-10-17 19:41:00 167.6 cm Universi ty [facility] Body weight 2020-10-17 19:41:00 181.892 kg [facility] BMI 2020-10-17 19:41:00 64.72 kg/m2 [facility] Oxygen saturation in 2020-10-17 19:41:00 96 /min [facility] Arterial blood by [facility] Pulse oximetry Branch Procedures Procedure Date / Time Performing Clinician Source Performed DNR 2021-10-01 06:01:00 Doctor Unassigned, [facility] [place] [facility] POCT GLUCOSE (AUTOMATED) 2021-09-23 22:48:00 Rony Segovia [facility] [place] [facility] POCT GLUCOSE (AUTOMATED) 2021-09-23 17:31:00 Rony Segovia [facility] [place] [facility] CT CHEST PULMONARY 2021-09-23 17:18:[facility] Branch ACTIVATED PARTIAL 2021-09-23 16:24:00 Micah [facility] TRANSTHORACIC ECHO (TTE) 2021-09-23 15:06:00 Micki Obrien [facility] COMPLETE W/ CONTRAST Medical [facility] POCT GLUCOSE (AUTOMATED) 2021-09-23 14:03:00 Rony Segovia [facility] [place] [facility] CBC WITHOUT DIFF 2021-09-23 11:28:[address] [facility] EXTRA TUBE LT. GREEN 2021-09-23 11:28:00 Tasha Montez [facility] ACTIVATED PARTIAL 2021-09-23 04:14:00 Micah [facility] POCT GLUCOSE (AUTOMATED) 2021-09-23 03:04:00 Rony Segovia versity [facility] POCT GLUCOSE (AUTOMATED) 2021-09-22 23:06:00 Rony Segovia Mable versity [facility] POCT GLUCOSE (AUTOMATED) 2021-09-22 18:56:00 Rony Segovia Mable versity [facility] ACTIVATED PARTIAL 2021-09-22 15:51:00 Micah [facility] POCT GLUCOSE (AUTOMATED) 2021-09-22 13:59:00 Rony Segoviaity [facility] N-TERMINAL PRO-BNP 2021-09-22 11:02:00 Tom Pelletier [facility] POCT GLUCOSE (AUTOMATED) 2021-09-22 06:49:00 [facility] 2021-09-22 03:44:00 Micah [facility] POCT GLUCOSE (AUTOMATED) 2021-09-22 02:29:00 [facility] ([facility]OMATED) 2021-09-21 23:42:00 Rony Segovia versity [facility] TROPONIN I 2021-09-21 20:11:[address] [facility] ACTIVATED PARTIAL 2021-09-21 20:11:00 Micah [facility] POCT GLUCOSE (AUTOMATED) 2021-09-21 17:53:00 [facility] (AUTOMATED) 2021-09-21 13:51:00 Rony Segovia versity [facility] ACTIVATED PARTIAL 2021-09-21 12:27:00 Micah [facility] POCT GLUCOSE (AUTOMATED) 2021-09-21 06:58:00 Rony Segovia versity [facility] PHOSPHORUS 2021-09-21 06:53:00 Micah [facility] MAGNESIUM 2021-09-21 06:53:00 Micah [facility] TROPONIN I 2021-09-21 06:53:[address] [facility] HEPATIC FUNCTION PANEL 2021-09-21 06:53:00 [facility] ([id number]) (ALB,T.PRO,BILI Medical Branch T,BU/BC,ALT,AST,ALK PHOS) BASIC METABOLIC PANEL 2021-09-21 06:53:00 [facility] (NA, K, CL, CO2, GLUCOSE, Medica l Branch BUN, CREATININE, CA) DIFF CONSULT 2021-09-21 06:53:00 Tom Pelletier [facility] INTERPRETATION [facility] CBC WITH DIFF 2021-09-21 06:53:00 [facility] GLYCOSYLATED HEMOGLOBIN 2021-09-21 06:53:00 [facility] (A1C) [facility] PROTHROMBIN TIME / INR 2021-09-21 06:53:00 [facility] ACTIVATED PARTIAL 2021-09-21 06:53:00 [facility] THRMPLAS N-TERMINAL PRO-BNP 2021-09-21 06:53:00 [facility] POCT HEMOGLOBIN A1C TEST 2020-10-17 19:40:00 Bambi Aguilera [facility] ASSIGNMENT OF BENEFITS 2020-10-17 19:08:21 Doctor Unassigned, Un [facility] [place] [facility] [place] Encounters Start End Encounter Admission Attending Care Care Encounter Source Date/Time Date/Time Type Type Clinicians Facility Department ID 2023-02-24 2023-02-24 Outpatient ANAYELI EDWARD [id number] Anayeli 00:00:00 00:00:00 KAILEY keita 2023-02-19 2023-02-19 Outpatient ANAYELI EDWARD [id number] Anayeli 00:00:00 00:00:00 KAILEY keita 2023-02-18 2023-02-18 Outpatient ANAYELI EDWARD [id number] Anayeli 00:00:00 00:00:00 KAILEY keita 2023-02-12 2023-02-12 Outpatient ANAYELI EDWARD [id number] Anayeli 00:00:00 00:00:00 KAILEY Seybol d 2023-02-10 2023-02-10 Outpatient HUNDL, ANAYELI GRANGER [id number] Anayeli 00:00:00 00:00:00 KAILEY Seybol d 2023-02-05 2023-02-05 Outpatient HUNDL, ANAYELI GRANGER [id number] Anayeli 00:00:00 00:00:00 KAILEY Seybol d 2023-01-14 2023-01-14 Outpatient HUNDL, ANAYELI GRANGER [id number] Anayeli 00:00:00 00:00:00 KAILEY Seybol d 2022-12-30 2022-12-30 Outpatient HUNDL, ANAYELI GRANGER [id number] Anayeli 00:00:00 00:00:00 KAILEY Seybol d 2022-12-18 2022-12-18 Outpatient HUNDL, ANAYELI GRANGER [id number] Anayeli 00:00:00 00:00:00 KAILEY Seybol d 2022-12-13 2022-12-13 Outpatient HUNDL, ANAYELI GRANGER [id number] Anayeli 00:00:00 00:00:00 KAILEY Seybol d 2022-12-08 2022-12-08 Outpatient HUNDL, ANAYELI GRANGER [id number] Anayeli 00:00:00 00:00:00 KAILEY Seybol d 2022-11-26 2022-11-26 Outpatient HUNDL, ANAYELI GRANGER [id number] Anayeli 00:00:00 00:00:00 KAILEY Seybol d 2022-11-24 2022-11-24 Outpatient YULIET, ANAYELI GRANGER [id number] Anayeli 09:45:00 09:45:00 BIN Seybo ld 2022-11-24 2022-11-24 Outpatient HUNDL, ANAYELI GRANGER [id number] Anayeli 00:00:00 00:00:00 KAILEY Seybol d 2022-11-12 2022-11-12 Outpatient HUNDL, ANAYELI GRANGER [id number] Anayeli 00:00:00 00:00:00 KAILEY Seybol d 2022-10-26 2022-10-26 Outpatient ANAYELI EDWARD [id number] Anayeli 00:00:00 00:00:00 KAILEY Seybol d 2022-10-14 2022-10-14 Outpatient ANAYELI EDWARD [id number] Anayeli 00:00:00 00:00:00 KAILEY Seybol d 2022-10-06 2022-10-06 Outpatient ANAYELI EDWARD [id number] Anayeli 00:00:00 00:00:00 KAILEY Seybol d 2022-09-30 2022-09-30 Outpatient MYKELSEYONL ANAYELI GRANGER [id number] Anayeli 00:00:00 00:00:00 BRINA MD Seybol d 2022-09-29 2022-09-29 Outpatient ANAYELI EDWARD [id number] Anayeli 00:00:00 00:00:00 KAILEY Seybol d 2022-09-29 2022-09-29 Outpatient ANAYELI EDWARD [id number] Anayeli 00:00:00 00:00:00 KAILEY Seybol d 2022-09-26 2022-09-26 Outpatient LAB90 ANAYELI GRANGER [id number] Anayeli 16:45:00 16:45:00 Seybol d 2022-09-26 2022-09-26 Outpatient ANAYELI EDWARD [id number] Anayeli 15:30:00 15:30:00 KAILEY Seybol d 2022-09-19 2022-09-19 Outpatient ANAYELI EDWARD [id number] Anayeli 00:00:00 00:00:00 KAILEY Seybol d 2022-09-18 2022-09-18 Outpatient ANAYELI EDWARD [id number] Anayeli 00:00:00 00:00:00 KAILEY Seybol d 2022-09-17 2022-09-17 Outpatient ANAYELI EDWARD [id number] Anayeli 00:00:00 00:00:00 KAILEY Seybol d 2022-08-06 2022-08-06 Outpatient ANAYELI EDWARD [id number] Anayeli 00:00:00 00:00:00 KAILEY Seybol d 2022-07-15 2022-07-15 Outpatient ANAYELI EDWARDSEY [id number] Anayeli 00:00:00 00:00:00 KAILEY Seybol d 2022-07-01 2022-07-01 Outpatient PREZAS ANAYELI GRANGER [id number] Anayeli 00:00:00 00:00:00 ILYA Seybol d 2022-07-01 2022-07-01 Outpatient HUNDL ANAYELI GRANGER [id number] Anayeli 00:00:00 00:00:00 KAILEY Seybol d 2022-06-30 2022-06-30 Outpatient HUNDL ANAYELI GRANGER [id number] Anayeli 00:00:00 00:00:00 KAILEY Seybol d 2022-06-27 2022-06-27 Outpatient HUNDL, ANAYELI GRANGER [id number] Anayeli 00:00:00 00:00:00 KAILEY Seybol d 2022-05-08 2022-05-08 Outpatient HUNDL ANAYELI GRANGER [id number] Anayeli 00:00:00 00:00:00 KAILEY Seybol d 2022-05-05 2022-05-05 Outpatient HUNDL ANAYELI GRANGER [id number] Anayeli 00:00:00 00:00:00 KAILEY Seybol d 2022-03-27 2022-03-27 Outpatient HUNDL ANAYELI GRANGER [id number] Anayeli 00:00:00 00:00:00 KAILEY Seybol d 2022-03-27 2022-03-27 Outpatient MYKELSEYONL ANAYELI GRANGER [id number] Anayeli 00:00:00 00:00:00 MD BRINA Seybol d 2022-03-21 2022-03-21 Outpatient MYKELSEYONL ANAYELI GRANGER [id number] Anayeli 00:00:00 00:00:00 MD BRINA Seybol d 2022-03-04 2022-03-04 Outpatient CHEYANNE ANAYELI GRANGER [id number] Anayeli 00:00:00 00:00:00 KAILEY Seybol d 2022-03-03 2022-03-03 Telemedici Kye EDWARD [id number] Anayeli 10:15:00 10:15:00 ne KAILEY Wiggins [id number] Se ybold [id number] 2022-03-03 2022-03-03 Outpatient ANAYELI EDWARD [id number] Anayeli 00:00:00 00:00:00 KAILEY Seybol d 2022-03-02 2022-03-02 Outpatient ANAYELI EDWARD [id number] Anayeli 00:00:00 00:00:00 KAILEY Seybol d 2022-02-07 2022-02-07 Outpatient ANAYELI EDWARD [id number] Anayeli 00:00:00 00:00:00 KAILEY Seybol d 2022-01-17 2022-01-17 Outpatient ELYSE GRANGER [id number] [place]ay[place] 00:00:00 00:00:00 MD BRINA Seybol d 2022-01-17 2022-01-17 Outpatient ANAYELI EDWARD [id number] Anayeli 00:00:00 00:00:00 KAILEY Seybol d 2022-01-16 2022-01-16 Outpatient ANAYELI WOO [id number] Anayeli 15:30:00 15:30:00 SONIDO Seybol d 2022-01-16 2022-01-16 Outpatient ANAYELI COWAN [id number] Anayeli 10:15:00 10:15:00 LUCIAN Seyb old 2022-01-15 2022-01-15 Telemedici Kye EDWARD [id number] Anayeli 11:00:00 11:00:00 ne KAILEY Wiggins [id number] Se ybold [id number] 2022-01-15 2022-01-15 Outpatient ANAYELI EDWARD [id number] Anayeli 00:00:00 00:00:00 KAILEY Seybol d 2022-01-15 2022-01-15 Outpatient ELYSE GRANGER [id number] [place]ayeli 00:00:00 00:00:00 MD BRINA Seybol d 2022-01-06 2022-01-06 Outpatient ELYSE WHITFIELDSEY [id number] [place]ayeli 00:00:00 00:00:00 BRINA MD Seybol d 2022-01-01 2022-01-01 Outpatient ANAYELI EDWARD [id number] [place]ayeli 00:00:00 00:00:00 KAILEY Seybol d 2022-01-01 2022-01-01 Outpatient ANAYELI EDWARD [id number] [place]ayeli 00:00:00 00:00:00 KAILEY Seybol d 2021-12-24 2021-12-24 Outpatient CHEYANNE ANAYELI GRANGER [id number] Anayeli 00:00:00 00:00:00 KAILEY Seybol d 2021-12-20 2021-12-20 Outpatient ANAYELI EDWARD [id number] [place]ayeli 00:00:00 00:00:00 KAILEY Seybol d 2021-12-18 2021-12-18 Outpatient ANAYELI EDWARD [id number] [place]ayeli 00:00:00 00:00:00 KAILEY Seybol d 2021-12-03 2021-12-03 Outpatient ANAYELI EDWARD [id number] [place]ay[place] 00:00:00 00:00:00 KAILEY Seybol d 2021-12-02 2021-12-02 Outpatient ANAYELI EDWARD [id number] [place] 00:00:00 00:00:00 KAILEY Seybol d 2021-12-02 2021-12-02 Outpatient ANAYELI EDWARD [id number] [place]ay[place] 00:00:00 00:00:00 KAILEY Seybol d 2021-11-14 2021-11-14 Outpatient ANAYELI WOO [id number] [place] 08:00:00 08:00:00 SONIDO Seybol d 2021-11-05 2021-11-05 Telemedici Kye Edward 1.2.840.114 [id number] [place] 13:00:00 13:30:00 ne Kailey Wiggins 350.1.13.13 Se shad 1.2.7.2.686 [id number] 2021-11-03 2021-11-03 Outpatient ANAYELI EDWARD [id number] [place]ayeli 00:00:00 00:00:00 KAILEY Seybol d 2021-10-30 2021-10-30 Outpatient CHEYANNE ANAYELI GRANGER [id number] [place]ay[place] 00:00:00 00:00:00 KAILEY Seybol d 2021-10-28 2021-10-28 Outpatient PEDROJessee ANAYELI GRANGER [id number] [place]ay[place] 00:00:00 00:00:00 KAILEY Seybol d 2021-10-14 2021-10-14 Outpatient ANAYELI ROJO [id number] [place]ayeli 00:00:00 00:00:00 TEODORO Seybol d 2021-10-14 2021-10-14 Outpatient ANAYELI EDWARD [id number] [place]ayeli 00:00:00 00:00:00 KAILEY Seybol d 2021-10-11 2021-10-11 Outpatient CHEYANNE ANAYELI GRANGER [id number] [place]ay[place] 00:00:00 00:00:00 KAILEY Seybol d 2021-10-10 2021-10-10 Outpatient CHEYANNE ANAYELI GRANGER [id number] [place] 00:00:00 00:00:00 KAILEY Seybol d 2021-10-08 2021-10-08 Outpatient ANAYELI ROJO [id number] [place]ayeli 00:00:00 00:00:00 TEODORO Seybol d 2021-10-05 2021-10-05 Outpatient ANAYELI EDWARD [id number] [place] 00:00:00 00:00:00 KAILEY Seybol d 2021-10-04 2021-10-04 Outpatient LAB90 ANAYELI GRANGER [id number] [place] 12:15:00 12:15:00 Seybol d 2021-10-04 2021-10-04 Outpatient ANAYELI ROJO [id number] [place] 00:00:00 00:00:00 TEODORO Seybol d 2021-10-01 2021-10-01 Orders Doctor PEREIRA 1.2.840.114 [id number] Univers 00:00:00 00:00:00 Only [facility] Madan as [phone] [facility] [address] 2021-09-30 2021-09-30 Outpatient ANAYELI EDWARD [id number] [place] 00:00:00 00:00:00 KAILEY keita 2021-09-30 2021-09-30 Outpatient ANAYELI ROJO [id number] [place]ayeli 00:00:00 00:00:00 TEODORO keita 2021-09-27 2021-09-27 Office Kye EDWARD 1.2.840.114 [id number] [place] 16:30:00 16:30:00 Visit KAILEY Wiggins 350.1.13.13 [facility] 1.2.7.2.686 [id number] 2021-09-24 2021-09-24 Outpatient ANAYELI ROJO [id number] [place]ayeli 00:00:00 00:00:00 TEODORO keita 2021-09-24 2021-09-24 Transition CLAIRE Chandler 1.2.840.114 [id number] Univers 00:00:00 00:00:00 of Care Cleopatra HIGGINBOTHAM 350.1.13.10 i ty [place] [id number] [facility] [address] 2021-09-21 2021-09-23 Hospital Uma Segoviachris HERRERANIE 1.2.840.11 [id number] Univers 00:07:00 19:16:00 Encounter Florinda Lewis 350.1.13.10 ity [facility] 4.2.7.2.686 [place] [id number] [facility] [address] 2021-09-21 2021-09-23 Inpatient U ZAKI [facility] [id number] Univers 00:07:00 19:16:00 [facility] 2021-09-23 2021-09-23 Outpatient ANAYELI ROJO [id number] [place]ayeli 00:00:00 00:00:00 TEODORO keita 2021-09-20 2021-09-20 Outpatient ANAYELI ROJO [id number] [place] 00:00:00 00:00:00 TEODORO Seybol d 2021-09-18 2021-09-18 Outpatient HUNDL, ANAYELI GRANGER [id number] [place] 00:00:00 00:00:00 KAILEY Seybol d 2021-09-18 2021-09-18 Outpatient HUNDL ANAYELI GRANGER [id number] [place] 00:00:00 00:00:00 KAILEY Seybol d 2021-09-14 2021-09-14 Outpatient HUNDL, ANAYELI GRANGER [id number] [place] 00:00:00 00:00:00 KAILEY Seybol d 2021-09-14 2021-09-14 Outpatient HUNDL, ANAYELI GRANGER [id number] [place] 00:00:00 00:00:00 KAILEY Seybol d 2021-09-10 2021-09-10 Outpatient ANAYELI ROJO [id number] [place] 00:00:00 00:00:00 TEODORO Seybol d 2021-09-10 2021-09-10 Outpatient HUNDL, ANAYELI GRANGER [id number] [place] 00:00:00 00:00:00 KAILEY Seybol d 2021-09-09 2021-09-09 Outpatient LAB90 ANAYELI GRANGER [id number] [place] 10:30:00 10:30:00 Seybol d 2021-09-09 2021-09-09 Office Kye Edward 1.2.840.114 [id number] [place] 08:36:14 09:06:14 Visit Kailey Wiggins 350.1.13.13 Se shad 1.2.7.2.686 [id number] 2021-09-06 2021-09-06 Outpatient ANAYELI ROJO [id number] [place] 16:30:00 16:30:00 TEODORO Seybol d 2021-09-06 2021-09-06 Outpatient ANAYELI EDWARD [id number] [place] 16:00:00 16:00:00 KAILEY Seybol d 2021-08-22 2021-08-22 Outpatient ANAYELI EDWARD [id number] [place]ay[place] 00:00:00 00:00:00 KAILEY Seybol d 2021-08-21 2021-08-21 Office Kye Edward 1.2.840.114 [id number] [place] 09:23:51 09:53:51 Visit Kailey Wiggins 350.1.13.13 Se ybold 1.2.7.2.686 [id number] 2021-07-26 2021-07-26 Outpatient ANAYELI EDWARD [id number] [place] 16:30:00 16:30:00 KAILEY Seybol d 2021-07-26 2021-07-26 Office Kye Rojo 1.2.840.114 [id number] [place] 15:36:47 16:06:47 Visit Teodoro Wiggins 350.1.13.13 Se andrzejelaine Juvenal 1.2.7.2.686 [id number] 2021-06-21 2021-06-21 Outpatient ANAYELI ROJO [id number] [place] 16:00:00 16:00:00 TEODORO keita 2021-06-05 2021-06-05 Outpatient ANAYELI ROJO [id number] [place] 11:30:00 11:30:00 TEODORO keita 2021-01-30 2021-01-30 Outpatient Jennifer AGUILERA [facility] [id number] Univers 13:30:00 13:30:00 BAMBI reed [facility] 2020-10-17 2020-10-17 Embedded Case Manager 2, Adc Lab [facility] 1.2.840.114 [id number] Univers 14:46:31 15:01:31 Visit Bambi Aguilera 350.1.13.10 [id number] Me dical nal 353 [facility] 2020-10-17 2020-10-17 Office Carlos [facility] 1.2.840.114 [id number] Univers 13:09:10 14:37:02 Visit Bambi [place] 350.1.13.10 i [place] [phone] Me dical nal 220 [facility] 2020-10-17 2020-10-17 Outpatient R CARLOS [facility] [id number] Univers 13:30:00 13:30:00 WENTONG ity of [facility] 2020-10-17 2020-10-17 Letter Carlos AKNATHAN 1.2.840.114 [id number] Univers 00:00:00 00:00:00 (Out) Bambi [place] 350.1.13.10 [place] [phone] Me dical nal 220 [facility] 2020-10-17 2020-10-17 Orders Doctor RANDALL 1.2.840.114 [id number] Univers 00:00:00 00:00:00 Only Unassigned, ASHANTI 350.1.13.10 ity of [place] [facility] 4.2.7.2.686 Madan as [phone] [address] Results Test Description Test Time Test Comments Results Result Comments Source POCT GLUCOSE (AUTOMATED) 2021-09-23 22:51:49 Test Item Value Reference Range Interpretation Comme nts POCT GLU (test code = 2588202274) 136 mg/dL 70-110 H Lab Interpretation (test code = 80383-9) Abnormal [facility] [id number] 20:27:09 LEUKOCYTOSIS WITH ABSOLUTE NEUTROPHILIA AND BASOPHILIA. RED BLOOD CELLS ARE UNREMARKABLE. PLATELETS ARE UNREMARKABLE.[facility] GLUCOSE (AUTOMATED)2021-09-23 17:33:07 Test Item Value Reference Range Interpretation Comments POCT GLU (test code = 8864149047) 170 mg/dL 70-110 H Lab Interpretation (test code = Abnormal 37386-9) [facility] (for use with Heparin Drip)2021-09-23 16:54:34 Test Item Value Reference Range Interpretation Comments APTT Patient (test code See_Comment H [Au tomated message] = 3173-2) The system [employer] generated this result transmitted ref erence range: 26 - 36 Seconds. The reference range was not used to int erpret this result as normal/abnormal . Lab Interpretation (test Abnormal code = 63865-6) [facility] GLUCOSE (AUTOMATED)2021-09-23 14:04:08 Test Item Value Reference Range Interpretation Comments POCT GLU (test code = 3209535628) 166 mg/dL 70-110 H Lab Interpretation (test code = Abnormal 60548-2) [facility] WITHOUT [id number] 11:42:34 Test Item Value Reference Range Interpretation Comments WBC (test code = See_Comment [Automated message] The 6690-2) system which nerated this result tra nsmitted reference range : 4.30 - 11.10 10*3/?L. The reference range was not used to interpr et this result as normal/abnormal . RBC (test code = See_Comment [Automated message] The 789-8) system which nerated this result tra nsmitted reference range : 3.93 - 5.25 10*6/?L. T he reference range was not used to interpr et this result as normal/abnormal . HGB (test code = 14.4 g/dL 11.6-15.0 718-7) HCT (test code = 44.8 % 35.7-45.2 4544-3) MCH (test code = 29.6 pg 25.9-32.8 785-6) MCV (test code = 92.2 fL 80.6-95.5 787-2) MCHC (test code = 32.1 g/dL 31.6-35.1 786-4) PLT (test code = See_Comment [Automated message] The 777-3) system which nerated this result tra nsmitted reference range : 166 - 358 10*3/?L. Th e reference range was not used to interpr et this result as normal/abnormal . MPV (test code = 11.3 fL 9.5-12.9 82676-9) RDW-CV (test code = 13.5 % 12.0-15.5 788-0) RDW-SD (test code = 45.6 fL 39.0-49.9 44332-9) NRBC x10^3 (test <0.01 See_Comment [Automated message] The code = 6624344819) system [facility] generated this result tra nsmitted reference range : 10*3/?L. The reference r damian was not used to int erpret this result as normal/abnormal . NRBC/100 WBC (test See_Comment [Automat ed message] The code = 1049723746) system [employer] generated this result tra nsmitted reference range : 0.0 - 10.0 /100 WBCs. The reference range was not used to interpr et this result as normal/abnormal . IPF % (test code = 1637321230) [facility] (for use with Heparin Drip)2021-09-23 04:41:27 Test Item Value Reference Range Interpretation Comments APTT Patient (test code See_Comment H [Au tomated message] = 3173-2) The system [employer] generated this result transmitted ref erence range: 26 - 36 Seconds. The reference range was not used to int erpret this result as normal/abnormal . Lab Interpretation (test Abnormal code = 51501-2) [facility] GLUCOSE (AUTOMATED)2021-09-23 03:05:58 Test Item Value Reference Range Interpretation Comments POCT GLU (test code = 155 mg/dL 70-110 H Notifi ed Provider [id number]) Lab Interpretation (test Abnormal code = 58524-0) [facility] GLUCOSE (AUTOMATED)2021-09-22 23:08:13 Test Item Value Reference Range Interpretation Comments POCT GLU (test code = 9497589766) 129 mg/dL 70-110 H Lab Interpretation (test code = Abnormal 04043-1) [facility] GLUCOSE (AUTOMATED)2021-09-22 18:57:53 Test Item Value Reference Range Interpretation Comments POCT GLU (test code = 7357227384) 178 mg/dL 70-110 H Lab Interpretation (test code = Abnormal 43341-8) [facility] (for use with Heparin Drip)2021-09-22 16:19:08 Test Item Value Reference Range Interpretation Comments APTT Patient (test code See_Comment H [Au tomated message] = 3173-2) The system [employer] generated this result transmitted ref erence range: 26 - 36 Seconds. The reference range was not used to int erpret this result as normal/abnormal . Lab Interpretation (test Abnormal code = 92735-7) [facility] GLUCOSE (AUTOMATED)2021-09-22 14:00:28 Test Item Value Reference Range Interpretation Comments POCT GLU (test code = 5735957843) 165 mg/dL 70-110 H Lab Interpretation (test code = Abnormal 43320-5) [facility] CenterN-TERMINAL [id number] 11:41:31 Test Item Value Reference Range Interpretation Comments NT-proBNP (test code 711 pg/mL See_Comment H [Autom ated = 2715236987) message] The system which generated this result transmitted reference range : <=125. The reference range was not used to interpret this result as normal/abnormal . SUSANNE (test code = SUSANNE) Biotin has been reported to cause a negative bias, interpret results relative to patient's use of biotin. Lab Interpretation Abnormal (test code = 14938-8) [facility] GLUCOSE (AUTOMATED)2021-09-22 06:50:04 Test Item Value Reference Range Interpretation Comments POCT GLU (test code = 0739499838) 148 mg/dL 70-110 H Lab Interpretation (test code = Abnormal 25115-7) [facility] (for use with Heparin Drip)2021-09-22 04:03:40 Test Item Value Reference Range Interpretation Comments APTT Patient (test code See_Comment H [Au tomated message] = 3173-2) The system [employer] generated this result transmitted ref erence range: 26 - 36 Seconds. The reference range was not used to int erpret this result as normal/abnormal . Lab Interpretation (test Abnormal code = 72240-7) [facility] GLUCOSE (AUTOMATED)2021-09-22 02:30:44 Test Item Value Reference Range Interpretation Comments POCT GLU (test code = 7251785692) 202 mg/dL 70-110 H Lab Interpretation (test code = Abnormal 21374-1) [facility] GLUCOSE (AUTOMATED)2021-09-21 23:43:18 Test Item Value Reference Range Interpretation Comments POCT GLU (test code = 5311286589) 143 mg/dL 70-110 H Lab Interpretation (test code = Abnormal 88745-0) [facility] CenterTROPONIN [id number] 21:01:53 Test Item Value Reference Interpretation Comments Range TROPONIN I (test 0.027 ng/mL See_Comment [Automated code = 3894213464) message] The system which generated this result transmitted reference range : <=0.034. The reference range was not used to interpret this result as normal/abnormal . SUSANNE (test code = Reference (Normal) SUSANNE) Range (defined by the 99th percentile reference limit): <= 0.034 ng/mL Note: Cardiac troponin begins to rise 3-4 hours after the onset of ischemia. Repeat in 4-6 hours if the sample was drawn within 3-4 hours of the onset of the symptom and found normal. Diagnosis of myocardial injury is made with acute changes in cTn concentrations with at least one serial sample above the 99th percentile upper reference limit (URL), taken together with the patient's clinical presentation. Biotin has been reported to cause a negative bias, interpret results relative to patient's use of biotin. Lab Interpretation Normal (test code = 99609-1) [facility] (for use with Heparin Drip)2021-09-21 20:48:52 Test Item Value Reference Range Interpretation Comments APTT Patient (test code See_Comment H [Au tomated message] = 3173-2) The system [employer] generated this result transmitted ref erence range: 26 - 36 Seconds. The reference range was not used to int erpret this result as normal/abnormal . Lab Interpretation (test Abnormal code = 20784-6) [facility] GLUCOSE (AUTOMATED)2021-09-21 17:55:13 Test Item Value Reference Range Interpretation Comments POCT GLU (test code = 8655922188) 161 mg/dL 70-110 H Lab Interpretation (test code = Abnormal 78195-5) [facility] GLUCOSE (AUTOMATED)2021-09-21 13:52:34 Test Item Value Reference Range Interpretation Comments POCT GLU (test code = 8180170516) 140 mg/dL 70-110 H Lab Interpretation (test code = Abnormal 78435-7) [facility] CenterTROPONIN [id number] 13:09:49 Test Item Value Reference Interpretation Comments Range TROPONIN I (test 0.040 ng/mL See_Comment H [Automated code = 0908759165) message] The system which generated this result transmitted reference range : <=0.034. The reference range was not used to interpret this result as normal/abnormal . SUSANNE (test code = Reference (Normal) SUSANNE) Range (defined by the 99th percentile reference limit): <= 0.034 ng/mL Note: Cardiac troponin begins to rise 3-4 hours after the onset of ischemia. Repeat in 4-6 hours if the sample was drawn within 3-4 hours of the onset of the symptom and found normal. Diagnosis of myocardial injury is made with acute changes in cTn concentrations with at least one serial sample above the 99th percentile upper reference limit (URL), taken together with the patient's clinical presentation. Biotin has been reported to cause a negative bias, interpret results relative to patient's use of biotin. Lab Interpretation Abnormal (test code = 86394-6) [facility]eraP[facility] (for use with Heparin Drip)2021-09-21 13:00:32 Test Item Value Reference Range Interpretation Comments APTT Patient (test code See_Comment HH [Au tomated message] = 3173-2) The system [employer] generated this result transmitted ref erence range: 26 - 36 Seconds. The reference range was not used to int erpret this result as normal/abnormal . Lab Interpretation (test Abnormal code = 95443-6) [facility] CenterGLYCOSYLATED HEMOGLOBIN (A1C)2021-09-21 11:29:49 Test Item Value Reference Range Interpretation Comments HGB A1C (test code = 8.7 % 4.0-5.7 H 4548-4) SUSANNE (test code = SUSANNE) Reference RangesNormal: <5.7%Prediabetes: 5.7 - 6.4%Diabetes: > 6.5% Lab Interpretation (test Abnormal code = 39848-6) [facility] CenterN-TERMINAL [id number] 08:14:07 Test Item Value Reference Range Interpretation Comments NT-proBNP (test code 1270 pg/mL See_Comment H [Autom ated = 8740719844) message] The system which generated this result transmitted reference range : <=125. The reference range was not used to interpret this result as normal/abnormal . SUSANNE (test code = SUSANNE) Biotin has been reported to cause a negative bias, interpret results relative to patient's use of biotin. Lab Interpretation Abnormal (test code = 60865-8) [facility] CenterHEPATIC FUNCTION PANEL (96540) (ALB,T.PRO,BILI T,BU/BC,ALT,AST,ALK PHOS)2021-09-21 07:39:04 Test Item Value Reference Range Interpretation Comments TOTAL BILI (test code = 2096032785) 0.9 mg/dL 0.1-1.1 BILI UNCON (test code = 4883476526) 0.6 mg/dL 0.1-1.1 BILI CONJ (test code = 1065334196) 0.0 mg/dL 0.0-0.3 T PROTEIN (test code = 5001724981) 6.5 g/dL 6.3-8.2 ALBUMIN (test code = 3927627178) 3.5 g/dL 3.5-5.0 ALK PHOS (test code = 8081956342) 69 U/L 34-122 ALTv (test code = 1742-6) 27 U/L 5-35 AST(SGOT) (test code = 7121172269) 28 U/L 13-40 Lab Interpretation (test code = Normal 56574-6) [facility] CenterMagnesium [id number] 07:39:04 Test Item Value Reference Range Interpretation Comments MAGNESIUM (test code = 7491096913) 1.8 mg/dL 1.7-2.4 Lab Interpretation (test code = Normal 91930-1) [facility] CenterPhosphorus [id number] 07:39:04 Test Item Value Reference Range Interpretation Comments PHOSPHORUS (test code = 8350763225) 3.9 mg/dL 2.5-5.0 Lab Interpretation (test code = Normal 52553-2) [facility] CenterBasi Metabolic Panel (NA, K, CL, CO2, GLUCOSE, BUN, CREATININE, CA)2021-09-21 07:39:03 Test Item Value Reference Range Interpretation Comments NA (test code = 138 mmol/L 135-145 3164945238) K (test code = 3.5 mmol/L 3.5-5.0 3763671242) CL (test code = 104 mmol/L 98-108 7314313839) CO2 TOTAL (test code = 25 mmol/L 23-31 2457851944) AGAP (test code = 2-16 2372441241) BUN (test code = 9 mg/dL 7-23 2579205354) GLUCOSE (test code = 150 mg/dL 70-110 H 3841005808) CREATININE (test code = 0.74 mg/dL 0.50-1.04 7834292098) CALCIUM (test code = 8.4 mg/dL 8.6-10.6 L 7291097735) eGFR (test code = mL/min/1.73m2 2024188913) SUSANNE (test code = SUSANNE) Association of Glomerular Filtration Rate (GFR) and Staging of Kidney Disease* + --+ --+ ------+| GFR (mL/min/1.73 m2) ?| With Kidney Damage ?| ?Without Kidney Damage+ --------+ --------+ +| ?>90 ?| ?Stage one ?| ? Normal ?+ ---+ ---+ -------+| ?60-89 ?| ?Stage two ?| ? Decreased GFR ? + --+ --+ ------+| ?30-59 ?| ?Stage three ?| ? Stage three ? + --+ --+ ------+| ?15-29 ?| ?Stage four ? | ? Stage four ?+ ---+ ---+ -------+| ?<15 (or dialysis) ? ?| ?Stage five ? | ? Stage five ?+ ---+ ---+ -------+ *Each stage assumes the associated GFR level has been in effect for at least three months. ?Stages 1 to 5, with or without kidney disease, indicate chronic kidney disease. Notes: Determination of stages one and two (with eGFR >59mL/min/1.73 m2) requires estimation of kidney damage for at least three months as defined by structural or functional abnormalities of the kidney, manifested by either:Pathological abnormalities or Markers of kidney damage (including abnormalities in the composition of the blood or urine or abnormalities in imaging tests). Lab Interpretation Abnormal (test code = 38753-8) [facility] CenterProthrombin Time (PT) / [id number] 07:20:00 Test Item Value Reference Range Interpretation Comments PROTIME PATIENT (test See_Comment H [Auto mated message] code = 5964-2) The system [employer] generated this result transmitted ref erence range: 10.1 - 1 2.6 Seconds. The reference range was not used to int erpret this result as normal/abnormal . INR (test code = 6301-6) Nor mal INR <1.1; Warfarin Therap eutic range 2.0 to 3. 0 or 2.5 to 3.5, dep ending upon the indica tions. Lab Interpretation (test Abnormal code = 16861-1) [facility] CenteraPTT2021-11-13 07:20:00 Test Item Value Reference Range Interpretation Comments APTT Patient (test code See_Comment H [Au tomated message] = 3173-2) The system [employer] generated this result transmitted ref erence range: 26 - 36 Seconds. The reference range was not used to int erpret this result as normal/abnormal . Lab Interpretation (test Abnormal code = 80034-6) [facility] CenterCB with [id number] 07:13:36 Test Item Value Reference Range Interpretation Comments WBC (test code = See_Comment H [Automated 4690-2) message] The sy stem which generated this result transmitted reference range : 4.30 - 11.10 10*3/?L. The reference range was not used to interpret this result as normal/abnormal . RBC (test code = See_Comment [Automated 789-8) message] The sy stem which generated this result transmitted reference range : 3.93 - 5.25 10*6/?L. The reference range was not used to interpret this result as normal/abnormal . HGB (test code = 15.0 g/dL 11.6-15.0 718-7) HCT (test code = 45.2 % 35.7-45.2 4544-3) MCV (test code = 89.5 fL 80.6-95.5 787-2) MCH (test code = 29.7 pg 25.9-32.8 785-6) MCHC (test code = 33.2 g/dL 31.6-35.1 786-4) RDW-SD (test code = 44.4 fL 39.0-49.9 14937-9) RDW-CV (test code = 13.5 % 12.0-15.5 788-0) PLT (test code = See_Comment [Automated 777-3) message] The sy stem which generated this result transmitted reference range : 166 - 358 10*3/ ?L. The reference r damian was not used to interpret this result as normal/abnormal . MPV (test code = 11.1 fL 9.5-12.9 87095-9) NRBC/100 WBC (test See_Comment [Automat ed code = 4539836563) message] The system which generated this result transmitted reference range : 0.0 - 10.0 /100 WBCs. The refer ence range was not u sed to interpret th is result as normal/abnormal . NRBC x10^3 (test code <0.01 See_Comment [Auto mated = 0545919314) message] The s ystem which generated this result transmitted reference range : 10*3/?L. The reference range was not used to interpret this result as normal/abnormal . GRAN MAT (NEUT) % 64.9 % (test code = 770-8) IMM GRAN % (test code 0.50 % = 6431108435) LYMPH % (test code = 25.4 % 736-9) MONO % (test code = 7.5 % 5905-5) EOS % (test code = 1.0 % 713-8) BASO % (test code = 0.7 % 706-2) GRAN MAT x10^3(ANC) 7.61 10*3/uL 1.88-7.09 H (test code = 1881723319) IMM GRAN x10^3 (test 0.06 10*3/uL 0.00-0.06 code = 6623300172) LYMPH x10^3 (test code 2.98 10*3/uL 1.32-3.29 = 731-0) MONO x10^3 (test code 0.88 10*3/uL 0.33-0.92 = 742-7) EOS x10^3 (test code = 0.12 10*3/uL 0.03-0.39 711-2) BASO x10^3 (test code 0.08 10*3/uL 0.01-0.07 H = 704-7) Lab Interpretation Abnormal (test code = 17088-1) [facility] GLUCOSE (AUTOMATED)2021-09-21 06:59:25 Test Item Value Reference Range Interpretation Comments POCT GLU (test code = 138 mg/dL 70-110 H Notifi ed Provider [id number]) Lab Interpretation (test Abnormal code = 60314-8) [facility] HEMOGLOBIN A1C [id number] 19:40:00 Test Item Value Reference Range Interpretation Comments POCT HBA1C (test code = 4548-4) 8.8 % 4-6 A Lab Interpretation (test code = Abnormal 57422-1) [facility] CenterPOCT HEMOGLOBIN A1C [id number] 19:40:00 Test Item Value Reference Range Interpretation Comments POCT HBA1C (test code = 4548-4) 8.8 % 4-6 A Lab Interpretation (test code = Abnormal 11312-2) [facility]"
[2023-02-25 19:12] LABS: Absolute Lymphocytes (CBC) 2.6 K/uL (0.7-4.9); Hematocrit 45.2 % (36.0-45.0); Lymphocytes % 19.9 % (15.3-44.8); MCV 82.2 fL (80-100); MPV 8.9 fL (7.6-11.3)
[2023-02-25 19:21] LABS: Protime INR 1.11
[2023-02-25] MEDS ORDERED: VANCOMYCIN 1 GM/VIAL ONE (19:22)
[2023-02-25] MEDS ORDERED: NA CHLORIDE 0.9% 250 ML ONE (19:23)
--- NOTE | 2023-02-25 19:29 | ER ---
Nurse's Notes [facility] Name: Anatoliy Cardenas Age: 48 yrs Sex: Female : 1975 Arrival Date: 02/25/2023 Time: 18:01 Bed 17 Private MD: Diagnosis: Cutaneous abscess of right labia - failed outpatient treatment;Sepsis, unspecified organism Presentation: 02/25 18:30 Chief complaint: Patient states: Sent by Dr. Felix to be admitted to hospital for IV ss antibiotics for labial infection. Coronavirus screen: Client denies travel out of the [place] in the last 14 days. Ebola Screen: Patient denies exposure to infectious person. Patient denies travel to an Ebola-affected area in the 21 days before illness onset. Initial Sepsis Screen: Does the patient meet any 2 criteria? No. Patient's initial sepsis screen is negative. Does the patient have a suspected source of infection? Yes:. Risk Assessment: Do you want to hurt yourself or someone else? Patient reports no desire to harm self or others. Onset of symptoms is unknown. 18:30 Method Of Arrival: Ambulatory ss 18:30 Acuity: PATRICIA 3 ss Triage Assessment: 19:00 General: Appears distressed, uncomfortable, obese, Behavior is cooperative, appropriate bp for age, anxious. Pain: Complains of pain in groin. EENT: No deficits noted. Neuro: No deficits noted. Cardiovascular: No deficits noted. Respiratory: No deficits noted. GI: No signs and/or symptoms were reported involving the gastrointestinal system. : No deficits noted. Derm: Abscess located on groin. Musculoskeletal: No deficits noted. Historical: - Allergies: 18:31 PENICILLINS; ss 18:31 Sulfa (Sulfonamide Antibiotics); ss 18:31 Zyprexa; ss - PMHx: 18:31 Diabetes - NIDDM; Hypertension; ss - Immunization history:: Client reports receiving the 2nd dose of the Covid vaccine. - Social history:: Smoking status: Patient denies any tobacco usage or history of. Screenin:00 [facility] ED Fall Risk Assessment (Adult) History of falling in the last 3 months, bp including since admission No falls in past 3 months (0 pts). Abuse screen: Denies threats or abuse. Denies injuries from another. Nutritional screening: No deficits noted. Tuberculosis screening: No symptoms or risk factors identified. Assessment: 19:00 General: SEE TRIAGE NOTE. bp Vital Signs: 18:30 BP 154 / 94; Pulse 102; Resp 16; Temp 99.1(O); Pulse Ox 98% on R/A; Weight 167.38 kg; ss Height 5 ft. 6 in. ; Pain 4/10; 19:08 BP 124 / 84; Pulse 95; Resp 20; Pulse Ox 95% ; bp 21:30 BP 142 / 86; Pulse 93; Resp 17; Pulse Ox 99% on R/A; ll3 18:30 Body Mass Index 59.56 (167.38 kg, 167.64 cm) ss 18:30 Pain Scale: Adult ss ED Course: 18:03 Patient arrived in ED. mr 18:15 Victoria Wiggins FNP-C is PHCP. kb 18:15 Kar Gonsalves MD is Attending Physician. kb 18:18 PHCP role handed off by Victoria Wiggins FNP-C cp 18:18 Kar Hansen PA is PHCP. cp 18:19 Victoria Wiggins FNP-C is PHCP. cp 18:21 Victoria Wiggins FNP-C is PHCP. kb 18:21 Lexa Solorio, GUSTABO is Primary Nurse. bp 18:31 Triage completed. ss 18:31 Arm band placed on right wrist. ss 19:00 Patient has correct armband on for positive identification. Bed in low position. Call bp light in reach. Side rails up X2. 19:00 Inserted saline lock: 22 gauge in right forearm, using aseptic technique. Blood bp collected. 19:28 Abimael Roberson MD is Hospitalizing Provider. kb 22:55 No provider procedures requiring assistance completed. Patient admitted, IV remains in ll3 place. 02/26 12:38 Inserted saline lock: 22 gauge in right forearm, using aseptic technique. rs5 Administered Medications: 02/25 19:37 Drug: vancoMYCIN IVPB 1 grams Route: IVPB; Infused Over: 2 hrs; Site: right antecubital;bp 22:53 Follow up: Response: No adverse reaction; IV Status: Completed infusion; IV Intake: ll3 250ml 19:56 Drug: NS 0.9% IV 1000 ml Route: IV; Rate: 1000 ml; Site: right antecubital; bp 22:53 Follow up: Response: No adverse reaction; IV Status: Completed infusion; IV Intake: ll3 1000ml 22:36 Drug: levofloxacin IVPB 500 mg Volume: 100 ml; Route: IVPB; Infused Over: 60 mins; ll3 Site: right antecubital; 02/26 14:56 Follow up: Response: No adverse reaction; IV Status: Completed infusion; IV Intake: eh3 100ml Medication: 02/25 19:00 VIS not applicable for this client. bp Intake: 22:53 IV: 1000ml; Total: 1000ml. ll3 22:53 IV: 250ml; Total: 1250ml. ll3 02/26 14:56 IV: 100ml; Total: 1350ml. eh3 Outcome: 02/25 19:28 Decision to Hospitalize by Provider. kb 22:55 Admitted to ER Hold. Please see [facility] for further documentation. 3 22:55 Condition: stable 22:55 Instructed on the need for admit. 02/26 14:53 Admitted to Med/surg accompanied by tech, via wheelchair, room 218, with chart, Report eh3 called to [facility] 14:53 Patient left the ED. eh3 Signatures: Victoria Wiggins, AUTO FLEET MANAGER-C AUTO FLEET MANAGER-CkNaomy Romero mr Cayla Barrow, RN RN ss Kar Hansen PA PA cp Peltier, Brian, GUSTABO RN Joe Sebastian RN RN 3 Jessica Leigh RN RN 3 Braden Cliare rs5
--- NOTE | 2023-02-25 19:29 | EDPHYS ---
Physician Documentation [facility] Name: Anatoliy Cardenas Age: 48 yrs Sex: Female : 1975 Arrival Date: 02/25/2023 Time: 18:01 Bed 17 Private MD: ED Physician Kar Gonsalves HPI: 02/25 18:27 This 48 yrs old Female presents to ER via Unassigned with complaints of Infection. kb 18:28 The patient presents with an abscess of the right labia majora. Description: kb erythematous, swollen, warm. Onset: The symptoms/episode began/occurred 1 week(s) ago. Possible cause(s): unknown. Associated signs and symptoms: Pertinent positives: drainage, erythema, swelling. Modifying factors: the symptoms are alleviated by nothing, the symptoms are aggravated by movement, pressure, squeezing the lesion and expressing the contents, touching. Severity of symptoms: At their worst the symptoms were moderate, in the emergency department the symptoms are unchanged. The patient has not experienced similar symptoms in the past. The patient has been recently seen by a physician:. 18:35 Pt was seen here, by me, 6 days ago for abscess to right labia. US done at that time kb and showed no drainable abscess. Pt was put on antibiotics and told to follow up with EDUCATION DIRECTOR. Pt states the abscess has been draining for a couple of days now. Was seen by Dr Felix today and sent here for admission. Pt denies fever or other symptoms of illness. States she has just had pain to the area. . Historical: - Allergies: 18:31 PENICILLINS; ss 18:31 Sulfa (Sulfonamide Antibiotics); ss 18:31 Zyprexa; ss - PMHx: 18:31 Diabetes - NIDDM; Hypertension; ss - Immunization history:: Client reports receiving the 2nd dose of the Covid vaccine. - Social history:: Smoking status: Patient denies any tobacco usage or history of. ROS: 18:27 Constitutional: Negative for fever, chills, and weight loss. kb 18:27 Skin: Positive for abscess, of the right labia majora. 18:27 All other systems are negative. Exam: 18:27 Constitutional: This is a well developed, well nourished patient who is awake, alert, kb and in no acute distress. Head/Face: Normocephalic, atraumatic. ENT: Moist Mucous membranes Cardiovascular: Regular rate and rhythm with a normal S1 and S2. No gallops, murmurs, or rubs. No pulse deficits. Respiratory: Respirations even and unlabored. No increased work of breathing. Talking in full sentences Abdomen/GI: Soft, non-tender. No distention MS/ Extremity: Pulses equal, no cyanosis. Neurovascular intact. Full, normal range of motion. Neuro: Awake and alert, GCS 15, oriented to person, place, time, and situation. Moves all extremities. Normal gait. 18:27 Skin: abscess, that is large, of the right labia majora, with induration, Wound recheck: Abscess: the wound has improved, decreased erythema, decreased swelling. 19:11 ECG was reviewed by the Attending Physician. kb Vital Signs: 18:30 BP 154 / 94; Pulse 102; Resp 16; Temp 99.1(O); Pulse Ox 98% on R/A; Weight 167.38 kg; ss Height 5 ft. 6 in. ; Pain 4/10; 19:08 BP 124 / 84; Pulse 95; Resp 20; Pulse Ox 95% ; bp 21:30 BP 142 / 86; Pulse 93; Resp 17; Pulse Ox 99% on R/A; ll3 18:30 Body Mass Index 59.56 (167.38 kg, 167.64 cm) ss 18:30 Pain Scale: Adult ss MDM: 18:15 Patient medically screened. kb 18:28 Data reviewed: vital signs, nurses notes. kb 18:31 Differential diagnosis: abscess, allergic reaction, cellulitis, insect bite. kb Consideration of Admission/Observation Patient was admitted/placed on observation. Management of patient was discussed with the following: Circuit Design Engineer: Dr Felix called the ER prior to pt's arrival. Wants pt on IV antibiotics, admitted to hospitalist and she will consult. Counseling: I had a detailed discussion with the patient and/or guardian regarding: the historical points, exam findings, and any diagnostic results supporting the discharge/admit diagnosis, the need for further work-up and treatment in the hospital. 19:27 Management of patient was discussed with the following: Hospitalist: HANH Mendoza accepts pt for admission under Dr Roberson. Care significantly affected by the following chronic conditions: Diabetes, Hypertension. 02/25 18:21 Order name: Blood Culture Adult (2) kb 02/25 18:21 Order name: CBC with Diff; Complete Time: 19:24 kb 02/25 18:21 Order name: CMP; Complete Time: 19:34 kb 02/25 18:21 Order name: Lactate w/ 2H reflex if indic.; Complete Time: 19:31 kb 02/25 18:21 Order name: Protime (+inr); Complete Time: 19:24 kb 02/25 18:21 Order name: Ptt, Activated; Complete Time: 19:24 kb 02/25 23:28 Order name: Glucose, Ancillary Testing; Complete Time: 02:48 EDMS 02/26 02:43 Order name: CBC with Automated Diff; Complete Time: 02:48 EDMS 02/26 02:56 Order name: Basic Metabolic Panel EDMS 02/26 02:56 Order name: Phosphorus EDMS 02/26 02:56 Order name: Lipid Profile EDMS 02/26 02:56 Order name: Magnesium EDMS 02/26 08:01 Order name: Glucose, Ancillary Testing EDMS 02/26 12:45 Order name: Glucose, Ancillary Testing EDMS 02/25 18:21 Order name: EKG; Complete Time: 18:22 kb 02/25 18:21 Order name: Accucheck; Complete Time: 18:58 kb 02/25 18:21 Order name: Cardiac monitoring; Complete Time: 18:58 kb 02/25 18:21 Order name: EKG - Nurse/Tech; Complete Time: 19:04 kb 02/25 18:21 Order name: IV Saline Lock - Large Bore; Complete Time: 18:58 kb 02/25 18:21 Order name: Labs collected and sent; Complete Time: 18:58 kb 02/25 18:21 Order name: O2 Per Protocol; Complete Time: 18:58 kb 02/25 18:21 Order name: O2 Sat Monitoring; Complete Time: 18:58 kb 02/25 18:21 Order name: Vital Signs; Complete Time: 18:58 kb EC:11 Rate is 96 beats/min. Rhythm is regular. QRS Jackson is Normal. NH interval is normal at kb 146 msec. QRS interval is normal at 106 msec. QT interval is normal at 459 msec. Administered Medications: 19:37 Drug: vancoMYCIN IVPB 1 grams Route: IVPB; Infused Over: 2 hrs; Site: right antecubital;bp 22:53 Follow up: Response: No adverse reaction; IV Status: Completed infusion; IV Intake: ll3 250ml 19:56 Drug: NS 0.9% IV 1000 ml Route: IV; Rate: 1000 ml; Site: right antecubital; bp 22:53 Follow up: Response: No adverse reaction; IV Status: Completed infusion; IV Intake: ll3 1000ml 22:36 Drug: levofloxacin IVPB 500 mg Volume: 100 ml; Route: IVPB; Infused Over: 60 mins; ll3 Site: right antecubital; 02/26 14:56 Follow up: Response: No adverse reaction; IV Status: Completed infusion; IV Intake: eh3 100ml Disposition: 02/27 07:02 Co-signature as Attending Physician, Kar Gonsalves MD I agree with the assessment and yaneth plan of care. Disposition Summary: 02/25/23 19:28 Hospitalization Ordered Hospitalization Status: Inpatient Admission kb Provider: Abimael Roberson Condition: Stable kb Problem: new kb Symptoms: are unchanged kb Bed/Room Type: Standard kb Location: Telemetry/MedSurg (Inpatient)(02/26/23 14:19) em1 Room Assignment: 218(02/26/23 14:19) em1 Diagnosis - Cutaneous abscess of right labia - failed outpatient treatment kb - Sepsis, unspecified organism kb Forms: - Medication Reconciliation Form kb - SBAR form kb Signatures: Dispatcher [employer] EDMS Victoria Wiggins, MICHELC ILEANA-Kar Schmitt MD MD cha Martinez, Eric em1 Cayla Barrow RN RN ss Garcia, Cindy, RN RN cg Peltier, Brian, RN RN bp Loubet, Lynsea, RN RN ll3 Kelly Gay PA-C PA-C sb4 Jessica Leigh RN eh3 Corrections: (The following items were deleted from the chart) 02/25 18:37 18:27 Skin: abscess, that is large, of the right labia majora, with induration, [facility] 18:38 18:35 Pt was seen here, by me, 6 days ago for abscess to right labia. US done at that kb time and showed no drainable abscess. Pt was put on antibiotics and told to follow up with EDUCATION DIRECTOR. Pt states the abscess has been draining for a couple of days now. Was seen by Dr Felix today and sent here for admission. kb 20:50 19:28 Telemetry/MedSurg (Inpatient) kb 20:50 19:28 kb 02/26 14:19 02/25 20:50 [facility] ER HOLD cg em1 02/26 14:02/25 20:50 ERHOLD- cg em1
[2023-02-25 19:31] LABS: Albumin 3.2 g/dL (3.4-5.0); Bilirubin Total 0.5 mg/dL (0.2-1.0); Protein, Total 7.6 g/dL (6.4-8.2)
[2023-02-25 19:32] LABS: Potassium 4.1 mEq/L (3.5-5.1)
[2023-02-25] MEDS ORDERED: NA CHLORIDE 0.9% 1,000 ML ONE (19:48)
--- NOTE | 2023-02-25 20:02 | P.HP ---
Certification for Inpatient Patient admitted to: Inpatient With expected LOS: <2 Midnights Patient will require the following post-hospital care: None Practitioner: I am a practitioner with admitting privileges, knowledge of patient current condition, hospital course, and medical plan of care. Services: Services provided to patient in accordance with Admission requirements found in Title 42 Section 412.3 of the Code of Federal Regulations Patient History Date of Service: 02/25/23 Reason for admission: Labial Abscess History of Present Illness: Ms. Cardenas is a 48 year old female with past medical history of hypertension, type 2 diabetes, and obesity with labial abscess. Patient was seen in this ED 6 days ago, had an ultrasound that did not reveal any drainable abscess, and was discharged with keflex and doxycycline and instructed to follow up with Dr. Felix. She saw Dr. Felix today who sent her here for IV antibiotics. She was tachycardic and with a temp of 99.1F. WBC 13 and lactate 2. She was started on vancomyin and levaquin and will be admitted for further management. Allergies Sulfa (Sulfonamide Antibiotics) [Sulfa(Sulfonamide Antibiotics)] Allergy (Mild, Verified 02/23/12 17:06) Hives Penicillins Allergy (Unverified 11/30/14 16:24) Unknown SULFA (SULFONAMIDES) Allergy (Uncoded 11/30/14 16:24) Unknown Home medications list reviewed: Yes Home Medications: Promethazine HCl [Phenergan] 25 mg PO Q6HP PRN #0 tablet 02/25/12 Amox/Clavulanate [Augmentin 875-125] 1 tab PO Q12H #14 tab 03/09/12 Hydrocodone/Acetaminophen [Vicodin 5-500 Tablet] 1 - 2 each PO Q4HP PRN #0 tablet 03/09/12 - Past Medical/Surgical History Diabetic: Yes -: Type 2 Diabetes -: Hypertension Psychosocial/ Personal History: Patient is . - Family History Family History: Reviewed- Non-Contributory - Social History Smoking Status: Never smoker Alcohol use: Yes CD- Drugs: No Caffeine use: No Place of Residence: Home Review of Systems Genitourinary: As per HPI Physical Examination - Vital Signs Temperature: 99.1 F Blood Pressure: 124/84 Pulse: 95 Respirations: 20 Pulse Ox (%): 95 - Physical Exam General: Alert, In no apparent distress, Obese HEENT: Atraumatic, EOMI, Sclerae nonicteric Neck: Supple, 2+ carotid pulse no bruit Respiratory: Clear to auscultation bilaterally, Normal air movement Cardiovascular: Regular rate/rhythm, Normal S1 S2 Gastrointestinal: Normal bowel sounds, No tenderness Musculoskeletal: No tenderness Integumentary: No rashes Neurological: Normal speech, Normal affect External genitalia: Deferred (evaluated by both ED provider and group work program aide surgeon) - Studies Laboratory Data (last 24 hrs) 02/25/23 19:00: PT 12.2, INR 1.11, APTT 30.4 02/25/23 19:00: Sodium 136, Potassium 4.1, BUN 9, Creatinine 0.93, Glucose 116 H, Total Bilirubin 0.5, AST 37, ALT 22, Alkaline Phosphatase 68 02/25/23 19:00: WBC 13.20 H, Hgb 14.8, Hct 45.2 H, Plt Count 417 H Assessment and Plan - Problems (Diagnosis) (1) Abscess of right genital labia Current Visit: Yes Status: Acute (2) Sepsis Current Visit: Yes Status: Acute Qualifiers: Sepsis type: sepsis due to unspecified organism Sepsis acute organ dysfunction status: without acute organ dysfunction Qualified Code(s): A41.9 - Sepsis, unspecified organism (3) Hypertension Current Visit: Yes Status: Chronic Qualifiers: Hypertension type: primary hypertension Qualified Code(s): I10 - Essential (primary) hypertension (4) Type 2 diabetes mellitus Current Visit: Yes Status: Chronic Qualifiers: Diabetes mellitus intermediate card tender insulin use: without intermediate card tender use Diabetes mellitus complication status: with hyperglycemia Qualified Code(s): E11.65 - Type 2 diabetes mellitus with hyperglycemia - Plan Patient is admitted for further management of labial abscess. Dr. Felix consulting. Continue vancomyin and levaquin. Blood cultures obtained. Obtain wound culture. Sepsis criteria met however patient states that her WBC is always slightly elevated and is always slightly tachycardic. Lactate is 2. Pain management as needed. Strict blood sugar and blood pressure control. Check lipid panel and A1c. Monitor and replete electrolytes per protocol. Reconcile and continue home medications. Discharge Plan: Home Plan to discharge in: 48 Hours - Advance Directives Does patient have a Living Will: No Does patient have a Durable POA for Healthcare: No - Code Status/Comfort Care Code Status Assessed: Yes Code Status: Full Code Physician Review: Patient Assessed, Agree with Above Assessment and Plan Critical Care: No Time Spent Managing Pts Care (In Minutes): 50
[2023-02-25] MEDS ORDERED: Levofloxacin500mg IV 500 MG/100 ML BAG IV ONE (21:33)
[2023-02-25] MEDS ORDERED: Levofloxacin500mg IV 500 MG/100 ML BAG IV SCH (22:56)
[2023-02-25] MEDS: INSULIN -REGULAR HUMAN 50 UNIT/0.5 ML ML SQ SCH (22:56)
[2023-02-25] MEDS ORDERED: ACETAMINOPHEN 500 MG TAB PO PRN (22:56)
[2023-02-25] MEDS ORDERED: HYDROCODONE/APAP 5/325 MG TAB PO PRN (22:56)
[2023-02-25] MEDS ORDERED: ONDANSETRON 4 MG/2 ML VIAL IV PRN (22:56)
[2023-02-25] MEDS ORDERED: VANCOMYCIN 2 GM in NA CHLORIDE 0.9% 500 ML IV SCH (23:00)
[2023-02-25 23:09] VITALS: BMI 55.3
[2023-02-26 02:33] LABS: Absolute Lymphocytes (CBC) 2.3 K/uL (0.7-4.9); Hematocrit 43.3 % (36.0-45.0); Lymphocytes % 18.1 % (15.3-44.8); MPV 8.4 fL (7.6-11.3); RBC Red Blood Cell Count 5.28 M/uL (3.86-4.86)
[2023-02-26 02:55] LABS: Magnesium 1.9 mg/dL (1.6-2.4); Phosphorus 2.7 mg/dL (2.5-4.9); Potassium 3.1 mEq/L (3.5-5.1)
[2023-02-26] MEDS: INSULIN -REGULAR HUMAN 50 UNIT/0.5 ML ML SQ SCH ×4 (07:30→21:00)
[2023-02-26] MEDS ORDERED: KCL 20 MEQ/100 mL IVPB 100 ML IV ONE ×2 (08:04→12:52)
--- NOTE | 2023-02-26 08:28 | EKG ---
Test Date: 2023-02-25 Test Time: 19:08:05 Licensed Guide: BRENT MEASUREMENT RESULTS: Intervals: Rate: 96 CO: 146 QRSD: 106 QT: 364 QTc: 459 [place]: P: 56 CO: 146 QRS: 75 T: 67 INTERPRETIVE STATEMENTS: Normal sinus rhythm Normal ECG Compared to ECG 06/11/2013 12:11:10 Sinus tachycardia no longer present Incomplete right bundle-branch block no longer present Electronically Signed On 02-26-23 08:27:23 CDT by Remi Maxwell
[2023-02-26] MEDS: KCL 20 MEQ/100 mL IVPB 20 MEQ/100 ML BAG IV SCH ×2 (09:00→11:00)
[2023-02-26] MEDS: VANCOMYCIN 2 GM in NA CHLORIDE 0.9% 500 ML IV SCH (09:14)
[2023-02-26] MEDS ORDERED: NA CHLORIDE 0.9% 100 ML ONE (12:52)
[2023-02-26] MEDS ORDERED: POTASSIUM 25 MEQ EFFERV TAB PO ONE (13:28)
[2023-02-26] MEDS ORDERED: Levofloxacin 750mg IV 750 MG/150 ML BAG IV SCH (17:00)
[2023-02-26 23:40] VITALS: O2SAT 97
[2023-02-27] MEDS ORDERED: VANCOMYCIN 1 GM/VIAL ONE (01:05)
[2023-02-27] MEDS ORDERED: NA CHLORIDE 0.9% 500 ML ONE (01:05)
[2023-02-27] MEDS: VANCOMYCIN 2 GM in NA CHLORIDE 0.9% 500 ML IV SCH (01:24)
[2023-02-27] MEDS: INSULIN -REGULAR HUMAN 50 UNIT/0.5 ML ML SQ SCH (07:30)
[2023-02-27 09:37] VITALS: BP 135/88; TEMP 97.6
== END 2023-02-27 11:20 | disposition home or self-care (01) | DRG 872 ==
LOC: ER 18:01 → ERHOLD 19:56 → 2ND 02-26 14:30
PROVIDERS: ADMIT Hospitalist; ATTEND Hospitalist
DX: A41.9 Sepsis, unspecified organism (principal); N76.4 Abscess of vulva; Z68.43 Body mass index [BMI] 50.0-59.9, adult; E66.9 Obesity, unspecified; N76.2 Acute vulvitis; I10 Essential (primary) hypertension; E11.65 Type 2 diabetes mellitus with hyperglycemia; Z88.0 Allergy status to penicillin; Z88.1 Allergy status to other antibiotic agents; Z79.899 Other long term (current) drug therapy
CPT/HCPCS: 36415; 80048; 80053; 80061; 82947; 83036; 83605; 83735; 84100; 84132; 85025; 85610; 85730; 87040; 87070; 87205; 93005; 96365; 96366; 99285; J3480; J7030; J7040; J7050

== ENCOUNTER 2025-02-16 13:07 | Observation (INO) | payer OTHER ==
--- OUTSIDE RECORDS SUMMARY | 2025-02-16 13:14 | XMS REPORT | Continuity of Care Document ---
Author Name Unknown Address [address] [facility] [place] [address] Organization [facility] [place] Address [address] [facility] [place] [address] Care Team Providers Care Painter Maintenance Name Role Phone VIC MAY Primary Care Physician Unavailab KAILEY Jackson Attending Clinician Unavailable LAB90 Attending Clinician Unavailable FREEMAN SCHULTZ Attending Clinician Unavailable [email or web address] Attending Clinician Unavaila MARIAA Clark Attending Clinician Unavailable NT90 Attending Clinician Unavailable TEODORO ROJO Attending Clinician UnaBIN Sam Attending Clinician Unavailab luis alfredo URIBE MD Attending Clinician Unavailab ILYA Toro Attending Clinician Unavailable SONIDO WOO Attending Clinician Unavailable LUCIAN COWAN Attending Clinician Unavailable Kailey Craig Attending Clinician [phone] Doctor Unassigned, Loco Attending Clinician U mushtaq Chandler RN, Cleopatra Morgan Attending Clinician [phone] Luca Rony Attending Clinician [phone] Debbie PAGE, Florinda Attending Clinician [phone] Tasha Montez MD Attending Clinician [phone] TASHA MONTEZ Attending Clinician Unavailable Darrel PAGE, Teodoro Sanford Attending Clinician [phone] BAMBI AGUILERA Attending Clinician Unavailable 2, [facility] Attending Clinician Unavailable Bambi Aguilera MD Attending Clinician [phone] [email or web address] Admitting Clinician Unavaila kermit Lewis MD, Florinda Admitting Clinician [phone] FLORINDA LEWIS Admitting Clinician Unavailable Payers Payer Name Policy Type Policy Number Effective Date Expirati on Date Source CHRIS /PPO 2 [id number] 2022 00:00:00 [facility] 3 [id number] 2021 00:00:[address] [facility] - OUT OF STATE [id number] 2019 00:00:00 Problems Condition Name Condition Details Condition Category Status Onset Date Resolution Date Last Treatment Date Treating Clinician Comments Source BMI 60.0-69.9, adult BMI 60.0-69.9, adult Disease Active 2023-11 00:00: 00 Anayeli Seybold - Externa l Menorrhagi a with irregular cycle Menorrhagi a with irregular cycle Disease Active 2023-11 00:00: 00 Anayeli Seybold - Externa l Depression with anxiety Depression with anxiety Disease Active 2023-11 00:00: 00 Anayeli Seybold - Externa l Uncontroll ed type 2 diabetes mellitus with hyperglyce lloyd (multi HCC) Uncontroll ed type 2 diabetes mellitus with hyperglyce lloyd (multi HCC) Disease Active 2023-11 00:00: 00 Anayeli Seybold - Externa l Bilateral pulmonary embolism Bilateral pulmonary embolism Disease Active 2020-11 00:00: 00 [facility] Morbid obesity with body mass index of 50 or higher Morbid obesity with body mass index of 50 or higher Disease Active 2020-11 00:00: 00 [facility] Encounter for initial prescripti on of contracept ascencion Encounter for initial prescripti on of contracept ascencion Disease Active 2020-11 00:00: 00 Anayeli Seandrzejold - Externa l Vitamin D deficiency Vitamin D deficiency Disease Active 2020-11 00:00: 00 Anayeli Seybold - Externa l Current mild episode of major depressive disorder without prior episode Current mild episode of major depressive disorder without prior episode Disease Active 2020-11 00:00: 00 Anayeli Seybold - Externa l Overweight Overweight Disease Active 2020-11 00:00: 00 Anayeli Seybold - Externa l Secondary polycythem ia Secondary polycythem ia Disease Active 2020-11 00:00: 00 Anayeli Seybold - Externa l Folliculit is Folliculit is Disease Active 2020-11 00:00: 00 Anayeli Seybold - Externa l ELENO (obstructi ve sleep apnea) - Not Controlled ELNEO (obstructi ve sleep apnea) - Not Controlled Disease Active 06-05 00:00: 00 Anayeli Seybold - Externa l Floaters in visual field, right - Not Controlled Floaters in visual field, right - Not Controlled Disease Active 06-05 00:00: 00 Anayeli Seybold - Externa l 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, 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, 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) Disease Active 02-19 00:00: 00 Anayeli Seybold - Externa l Essential hypertensi on Essential hypertensi on Disease Active 02-19 00:00: 00 Anayeli Seybold - Externa l Abscess of skin Abscess of skin Disease Active 02-19 00:00: 00 Anayeli Seybold - Externa l 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, 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, 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) Disease Active 13 00:00: 00 Anayeli Hendersona l Allergies, Adverse Reactions, Alerts Allergy Name Allergy Type Status Severity Reaction(s) Onset Date Inactive Date Treating Clinician Comments Source Penicill in Propensi ty to adverse reaction s Active Unknown - See comments 2019-11 00:00: 00 unknown [facility] Sulfa (Sulfona mide Antibiot ics) Propensi ty to adverse reaction s Active Itching 2019-11 00:00: 00 [facility] SULFA (SULFONA MIDE ANTIBIOT ICS) Drug Class Active Med ITCHING 2019-11 00:00: 00 [facility] PENICILL IN DRUG INGREDI Active Unknown-Cmnt 2019-11 00:00: 00 [facility] Penicill in G Propensi ty to adverse reaction s Active Anaphylaxis 2019-11 00:00: 00 unknownun known Anayeli Hendersona l Sulfa Drugs Propensi ty to adverse reaction s Active Itching 2019-11 00:00: 00 Anayeli Collado Sulfa Drugs Propensi ty to adverse reaction s Active Itching 2019-11 00:00: 00 Anayeli Collado - Externa l Sulfa Drugs Propensi ty to adverse reaction s Active Itching 16 00:00: 00 Other reaction( s): Hives Anayeli Hendersona l NO KNOWN ALLERGIE S Drug Class Active [facility] Social History Social Habit Start Date Stop Date Quantity Comments Source Gender identity 2021-10-15 07:51:44 Identifies as female gender (finding) Anayeli Collado - External Sexual orientation 2021-10-15 07:51:44 Heterosexual (finding) Anayeli Collado - External History SDOH Alcohol Frequency [facility] Alcohol Binge [facility] ASSERTION Not Anayeli Collado - External History of Social function 2023-05-06 00:00:00 2023-05-06 00:00:00 Anayeli Seybold - External Exposure to SARS-CoV-2 (event) 2021-11-24 00:00:00 2021-12-24 12:42:00 Not sure Anayeli Heaven Alcohol Comment 2021-09-21 00:00:00 2021-09-21 00:00:00 socially [facility] Alcohol intake 2021-09-21 00:00:00 2021-09-21 00:00:00 Current drinker of alcohol (finding) [facility] Sex 2021-02-05 17:18:47 2021-02-05 17:18:47 Female (finding) Anayeli Collado - Otto Tobacco use and exposure 2020-11-14 00:00:00 2020-11-14 00:00:00 Never used [facility] Sex assigned at 1975 00:00:00 1975 00:00:00 F Anayeli Menjivar Smoking Status Start Date Stop Date Source Never smoked tobacco Anayeli Heaven Menjivar Unknown if ever smoked [facility] Medications Ordered Medication Name Filled Medication Name Start Date Stop Date Current Medication? Ordering Clinician Indication Dosage Frequency Signature (SIG) Comments Components Source Metformin HCl 500 MG oral Tablet 2023-11 00:00: 00 Yes [id number] 500mg QD Take 1 tablet (500 mg total) by mouth every morning and evening take with meals. Anayeli gilbert Tirzepatide (Mounjaro) 15 MG/0.5ML subcutaneou s Solution Auto-inject or 2023-11 00:00: 00 Yes [id number] 15mg Q1W Inject 15 mg into the skin once a week. Anayeli gilbert Bupropion HCL XL 150 MG OR TB24 2023-11 00:00: 00 Yes [id number] 150mg QD Take 1 tablet (150 mg total) by mouth daily. Anayeli gilbert hydroCHLORO thiazide 25 MG oral Tablet 2023-11 00:00: 00 Yes [id number] 25mg QD Take 1 tablet (25 mg total) by mouth daily. Anayeli gilbert Norethindro ne, Contracepti ve, 0.35 MG oral Tablet 2023-11 00:00: 00 Yes .35mg Take 1 tablet (0.35 mg total) by mouth every morning. Anayeli gilbert Tirzepatide (Mounjaro) 15 MG/0.5ML subcutaneou s Solution Pen-injecto r 2023-11 00:00: 00 09-23 00:00 :00 No [id number] 15mg Q1W Inject 0.5 mL (15 mg total) into the skin once a week. Anayeli gilbert Glucose Blood in vitro Strip 05-31 00:00: 00 Yes [id number] 100{eac h} Q.5D 100 each by other route 2 times daily. Anayeli gilbert Ketorolac Tromethamin e 10 MG oral Tablet 05-31 00:00: 00 Yes [id number] 10mg Q.25D Take 1 tablet (10 mg total) by mouth every 6 hours as needed for pain. Anayeli gilbert Lisinopril 10 MG oral Tablet 05-31 00:00: 00 09-23 00:00 :00 No [id number] 10mg QD Take 1 tablet (10 mg total) by mouth daily. Anayeli gilbert Metformin HCl 500 MG oral Tablet 05-25 00:00: 00 09-23 00:00 :00 No [id number] TAKE 1 TABLET BY MOUTH IN THE MORNING AND 1 IN THE EVENING WITH MEALS Anayeli gilbert guaiFENesin -Codeine 100-10 MG/5ML oral Syrup 6-04 00:00: 00 Yes [id number] 5mL Q4H Take 5 mL by mouth every 4 to 6 hours as needed for cough. Anayeli gilbert Doxycycline Hyclate 100 MG oral Tablet 02-28 00:00: 00 Yes [id number] 100mg Take 1 tablet (100 mg total) by mouth 2 times daily. Anayeli gilbert Gabapentin 100 MG oral Capsule 02-28 00:00: 00 Yes [id number] 100mg Take 1 capsule (100 mg total) by mouth 3 times daily. Anayeli gilbert Fluconazole 150 MG oral Tablet 02-28 00:00: 00 09-23 00:00 :00 No [id number] 150mg Take 1 tablet (150 mg total) by mouth every 3 days. Anayeli gilbert Norethindro ne, Contracepti ve, 0.35 MG oral Tablet 02-21 00:00: 00 Yes .35mg Take 1 tablet (0.35 mg total) by mouth every morning. Anayeli gilbert levoFLOXaci n 500 MG oral Tablet 02-21 00:00: 00 Yes TAKE ONE (1) TABLET(S) BY MOUTH ONCE A DAY FOR 6 DAYS. Anayeli gilbert Acetaminoph en-Codeine 300-30 MG oral Tablet 02-21 00:00: 00 Yes 2{tbl} Q.25D Take 2 tablets by mouth every 6 hours as needed for pain. Anayeli gilbert Diclofenac Sodium 50 MG oral Tablet Delayed Response 02-21 00:00: 00 Yes 50mg Take 1 tablet (50 mg total) by mouth 2 times daily. Anayeli gilbert Cyclobenzap rine HCl 5 MG oral Tablet 02-21 00:00: 00 Yes 5mg Take 1 tablet (5 mg total) by mouth 3 times daily. Anayeli gilbert Tirzepatide (Mounjaro) 15 MG/0.5ML subcutaneou s Solution Pen-injecto r 220 00:00: 00 Yes [id number] 15mg Inject 0.5 mL (15 mg total) into the skin once a week. Anayeli gilbert Sertraline HCl 25 MG oral Tablet 12-28 00:00: 00 Yes [id number] For 2 weeks take 1 tab daily. Then, increase to 2 tabs daily.. Anayeli gilbert Propranolol HCl 20 MG oral Tablet 12-28 00:00: 00 Yes [id number] 20mg Q.[id number] 3D Take 1 tablet (20 mg total) by mouth 3 times daily as needed. Anayeli gilbert methylPREDN ISolone 4 MG oral Tablet Therapy Pack 11-19 00:00: 00 Yes [id number] 1{harvey} Take 1 harvey by mouth See Admin Instructio ns Use as directed. Anayeli gilbert Benzonatate (Tessalon Perles) 100 MG oral Capsule 11-19 00:00: 00 Yes [id number] 100mg Q.[id number] [id number] 3D Take 1 capsule (100 mg total) by mouth 3 times daily as needed for cough. Anayeli gilbert guaiFENesin -Codeine 100-10 MG/5ML oral Syrup 11-19 00:00: 00 Yes [id number] 5mL Take 5 mL by mouth every 4 to 6 hours as needed for cough. Anayeli gilbert Azithromyci n 250 MG oral Tablet 11-19 00:00: 00 11-25 05:59 :00 No [id number] Take 2 tablets by mouth on day 1 then 1 tablet by mouth daily for 4 days thereafter .. Anayeli gilbert Pseudoeph-B romphen-DM 30-2-10 MG/5ML oral Syrup 11-11 00:00: 00 Yes [id number] 10mL Q.25D Take 10 mL by mouth 4 times daily as needed. Anayeli gilbert Albuterol HFA 108 (90 Base) MCG/ACT IN AERS 11-11 00:00: 00 Yes [id number] 2{puff} Q.25D Inhale 2 puffs into the lungs every 6 hours as needed for wheezing. Anayeli gilbert Pseudoeph-B romphen-DM 30-2-10 MG/5ML oral Syrup 2022-11 00:00: 00 Yes [id number] 10mL Q.25D Take 10 mL by mouth 4 times daily as needed. Anayeli gilbert Lisinopril 10 MG oral Tablet 2022-11 00:00: 00 Yes [id number] 10mg Take 1 tablet (10 mg total) by mouth daily. Anayeli gilbert hydrOXYzine HCl 25 MG oral Tablet 2022-11-07 00:00: 00 Yes 25mg Q4H Take 1 tablet (25 mg total) by mouth every 4 hours as needed. Anayeli gilbert Tirzepatide (Mounjaro) 12.5 MG/0.5ML subcutaneou s Solution Pen-injecto r 2022-11 1-06 00:00: 00 Yes [id number] 12.5mg Inject 0.5 mL (12.5 mg total) into the skin once a week. Anayeli gilbert Nitrofurant oin Monohyd Macro (Macrobid) 100 MG oral Capsule 2022-11 0 00:00: 00 Yes [id number] 100mg Take 1 capsule (100 mg total) by mouth 2 times daily. Anayeli gilbert Lisinopril 10 MG oral Tablet 2022-11 00:00: 00 Yes [id number] 10mg Take 1 tablet (10 mg total) by mouth daily. Anayeli gilbert Lisinopril 20 MG oral Tablet 2022-1116 00:00: 00 08-24 00:00 :00 No [id number] 20mg Take 1 tablet (20 mg total) by mouth daily. Anayeli gilbert Sertraline HCl 25 MG oral Tablet 2022-11 0 00:00: 00 Yes [id number] 25mg Take 1 tablet (25 mg total) by mouth daily. Anayeli gilbert Tirzepatide (Mounjaro) 12.5 MG/0.5ML subcutaneou s Solution Pen-injecto r - 00:00: 00 Yes [id number] 12.5mg Inject 0.5 mL (12.5 mg total) into the skin once a week. Anayeli gilbert Metformin HCl 500 MG oral Tablet 06-02 00:00: 00 Yes [id number] 500mg Take 1 tablet (500 mg total) by mouth in the morning and 1 tablet (500 mg total) in the evening. Take with meals. Anayeli gilbert Cyclobenzap rine HCl 5 MG oral Tablet 05-28 00:00: 00 08-24 00:00 :00 No [id number] 5mg Q.[id number] 3D Take 1 tablet (5 mg total) by mouth 3 times daily as needed for muscle spasms Anayeli Seybold - Externa l Ketorolac Tromethamin e 10 MG oral Tablet 05-28 00:00: 00 08-24 00:00 :00 No [id number] 10mg Q.25D Take 1 tablet (10 mg total) by mouth every 6 hours as needed for pain Anayeli Seybold - Externa l Acetaminoph en-Codeine 300-30 MG oral Tablet 05-07 00:00: 00 08-24 00:00 :00 No [id number] 1{tbl} Q4H Take 1 tablet by mouth every 4 hours as needed for pain Anayeli Seybold - Externa l Ketorolac Tromethamin e (TORADOL) 30 mg/mL 05-06 21:30: 00 05-06 21:15 :00 No [id number] 30mg Anayeli Seybold - Externa l Cyclobenzap rine HCl 5 MG oral Tablet 05-06 00:00: 00 Yes [id number] 5mg Q.20400051 [id number] 3D Take 1 tablet (5 mg total) by mouth 3 times daily as needed for muscle spasms Anayeli Seybold - Externa l Tirzepatide (Mounjaro) 12.5 MG/0.5ML subcutaneou s Solution Pen-injecto r 05-05 00:00: 00 Yes [id number] 12.5mg Inject 0.5 mL (12.5 mg total) into the skin once a week Anayeli Seybold - Externa l Metoprolol Succinate 25 MG oral TABLET SR 24 HR 04-10 00:00: 00 Yes [id number] 25mg Take 1 tablet (25 mg total) by mouth daily Anayeli Seybold - Externa l hydrOXYzine HCl 25 MG oral Tablet 5-19 00:00: 00 Yes [id number] 25mg Q.25D Take 1 tablet (25 mg total) by mouth every 6 hours as needed for itching Anayeli Seybold - Externa l Promethazin e HCl (PHENERGAN) 25 MG oral Tablet 5- 00:00: 00 Yes [id number] 25mg Q.25D Take 1 tablet (25 mg total) by mouth every 6 hours as needed for nausea Anayeli gilbert Ondansetron (ZOFRAN) 4 MG oral TABLET DISPERSIBLE 5- 00:00: 00 Yes [id number] 4mg Q.48622401 [id number] 3D Take 1 tablet (4 mg total) by mouth every 8 hours as needed for nausea Anayeli gilbert Acetaminoph en-Codeine 300-30 MG oral Tablet 4-14 00:00: 00 05-06 00:00 :00 No [id number] 1{tbl} Q4H Take 1 tablet by mouth every 4 hours as needed for pain Anayeli giblert Norethindro ne, Contracepti ve, (Danae) 0.35 MG oral Tablet 12 00:00: 00 Yes .35mg Take 1 tablet (0.35 mg total) by mouth every morning Anayeli gilbert Metformin HCl 500 MG oral Tablet -12 00:00: 00 Yes [id number] 500mg Take 1 tablet (500 mg total) by mouth in the morning and 1 tablet (500 mg total) in the evening. Take with meals. Anayeli gilbert Empaglifloz in (Jardiance) 10 MG oral Tablet 2-10 00:00: 00 Yes [id number] 1{tbl} Take 1 tablet by mouth daily Anayeli gilbert Nitrofurant oin Monohyd Macro (Macrobid) 100 MG oral Capsule 2021-11-21 00:00: 00 Yes [id number] 100mg Take 1 capsule (100 mg total) by mouth 2 times daily Anayeli gilbert Blood Glucose Monitoring Suppl (SMRxT Verio Flex System) w/Device does not apply Kit 2021-11-18 00:00: 00 Yes [id number] 1{each} 1 each by does not apply route 3 to 4 times daily Anayeli gilbert Apixaban 5 MG oral Tablet 2021-11 14:15: 02 09-25 00:00 :00 No 1{tbl} Take 1 tablet by mouth daily Anayeli gilbert Tirzepatide (Mounjaro) 2.5 MG/0.5ML subcutaneou s Solution Pen-injecto r 2021-11 00:00: 00 Yes [id number] 2.5mg Inject 0.5 mL (2.5 mg total) into the skin once a week Anayeli gilbert Metformin HCl 1000 MG oral Tablet 2021-11 00:00: 00 09-26 00:00 :00 No [id number] 1000mg Take 1 tablet (1,000 mg total) by mouth in the morning and 1 tablet (1,000 mg total) in the evening. Take with meals. Anayeli gilbert Empaglifloz in (Jardiance) 25 MG oral Tablet 2021-11 00:00: 00 09-26 00:00 :00 No [id number] 25mg Take 25 mg by mouth daily Anayeli gilbert Glucose Blood in vitro Strip 2021-11 00:00: 00 Yes [id number] 100{eac h} 100 each by other route 2 times daily Anayeli gilbert Glucose Blood in vitro Strip 2021-11 00:00: 00 Yes [id number] 100{eac h} 100 each by other route 2 times daily Anayeli gilbert Blood Glucose Monitoring Suppl (Blood Glucose Monitor System) w/Device does not apply Kit 2021-11 00:00: 00 09-26 00:00 :00 No [id number] Please provide one touch ildefonso (flex or reflex)Wit h 100 strips 3 month supply. [employer] reports that they will pay [phone] Anayeli gilbert hydrOXYzine HCl 25 MG oral Tablet 08-01 00:00: 00 Yes [id number] 25mg Q.25D Take 1 tablet (25 mg total) by mouth every 6 hours as needed for itching Anayeli gilbert Norethindro ne, Contracepti ve, (Danae) 0.35 MG oral Tablet 08-01 00:00: 00 Yes [id number] .35mg Take 1 tablet (0.35 mg total) by mouth every morning Anayeli gilbert Mupirocin (BACTROBAN) 2 % apply externally Ointment 07-01 00:00: 00 09-26 00:00 :00 No [id number] Apply 1 applicatio n topically 2 times daily Anayeli gilbert Apixaban (Eliquis) 5 MG oral Tablet 05-09 00:00: 00 08-24 00:00 :00 No [id number] 5mg Take 1 tablet (5 mg total) by mouth 2 times daily Anayeli gilbert Ondansetron (Zofran ODT) 4 MG oral TABLET DISPERSIBLE 03-03 00:00: 00 Yes [id number] 4mg Q.[id number] 3D Take 1 tablet (4 mg total) by mouth every 8 hours as needed for nausea Anayeli Collado Amoxicillin -Pot Clavulanate 875-125 MG oral Tablet 03-03 00:00: 00 Yes [id number] 1{tbl} Take 1 tablet by mouth in the morning and 1 tablet in the evening. Anayeli Collado Fluconazole 150 MG oral Tablet 03-03 00:00: 00 Yes [id number] Take 1 tabe now and 1 tab at the end of antibiotic s Anayeli Collado Pseudoeph-B romphen-DM (Bromfed DM) 30-2-10 MG/5ML oral Syrup 03-03 00:00: 00 Yes [id number] 10mL Q.25D Take 10 mL by mouth 4 times daily as needed Anayeli Collado Acetaminoph en-Codeine 300-30 MG oral Tablet 02-07 00:00: 00 Yes [id number] 1{tbl} Q4H Take 1 tablet by mouth every 4 hours as needed for pain Anayeli Collado Continuous Blood Gluc Admitting Clerk (Zylie the Bear Erika 14 Day [place]) does not apply Device 01-20 00:00: 00 Yes [id number] CHECK BLOOD SUGAR FOUR TIMES A DAY AND NEEDED Anayeli Collado Escitalopra m Oxalate 10 MG oral Tablet 01-20 00:00: 00 08-24 00:00 :00 No [id number] TAKE ONE TABLET BY MOUTH DAILY Anayeli gilbert Amoxicillin -Pot Clavulanate 875-125 MG oral Tablet 01-15 00:00: 00 Yes [id number] 1{tbl} Take 1 tablet by mouth in the morning and 1 tablet in the evening. Anayeli Collado Norethindcourtney ball, Contracepti ve, 0.35 MG oral Tablet 01-15 00:00: 00 Yes [id number] .35mg Take 1 tablet (0.35 mg total) by mouth in the morning. Anayeli Collado NEOMYCIN-PO LYMYXIN-HC, OTIC, 1 % otic Solution 01-15 00:00: 00 09-26 00:00 :00 No [id number] 2[drp] Q.[id number] 3D Place 2 drops into both ears 3 times daily as needed Anayeli gilbert Continuous Blood Gluc Sensor (FreeStyle Erika 14 Day Sensor) does not apply Misc 01-01 00:00: 00 Yes [id number] CHECK FOUR TIMES A DAY AND NEEDED AND CHANGE EVERY 14 DAYS Anayeli ball Contracepti ve, 0.35 MG oral Tablet 01-01 00:00: 00 01-15 00:00 :00 No [id number] .35mg Take 1 tablet (0.35 mg total) by mouth daily Anayeli Collado Escitalopra m Oxalate 10 MG oral Tablet 12-20 00:00: 00 Yes [id number] 10mg Take 1 tablet (10 mg total) by mouth daily Anayeli Collado Continuous Blood Gluc Admitting Clerk (FreeStyle Erika 14 Day [place]) does not apply Device 12-20 00:00: 00 Yes [id number] Please check BS 4 times daily and as needed. Anayeli Collado hydrOXYzine HCl 25 MG oral Tablet 12-20 00:00: 00 Yes [id number] 25mg Q.25D Take 1 tablet (25 mg total) by mouth every 6 hours as needed for itching Anayeli Collado Empaglifloz in (Jardiance) 25 MG oral Tablet 12-20 00:00: 00 Yes [id number] 25mg Take 25 mg by mouth daily Anayeli Collado Metoprolol Succinate 50 MG oral TABLET SR 24 HR 12-20 00:00: 00 09-26 00:00 :00 No [id number] 50mg Take 1 tablet (50 mg total) by mouth daily Anayeli gilbert Dulaglutide (Trulicity) 4.5 MG/0.5ML subcutaneou s Solution Pen-injecto r 12-20 00:00: 00 09-26 00:00 :00 No [id number] 4.5mg Inject 4.5 mg into the skin once a week Anayeli gilbert Pseudoeph-B romphen-DM (Bromfed DM) 30-2-10 MG/5ML oral Syrup 12-11 00:00: 00 Yes [id number] 10mL Q.25D Take 10 mL by mouth 4 times daily as needed Anayeli Collado Albuterol HFA 108 (90 Base) MCG/ACT IN AERS 12-11 00:00: 00 Yes [id number] 2{puff} Q.25D Inhale 2 puffs into the lungs every 6 hours as needed for wheezing Anayeli gilbert Benzonatate (Tessalon Perles) 100 MG oral Capsule 12-11 00:00: 00 09-25 00:00 :00 No [id number] 100mg Q.[id number] 3D Take 1 capsule (100 mg total) by mouth 3 times daily as needed for cough Anayeli gilbert Pseudoephed rine HCl (Sudafed 12 Hour) 120 MG oral Tablet 12 Hour Sustained Release 12-11 00:00: 00 09-25 00:00 :00 No [id number] 120mg Take 1 tablet (120 mg total) by mouth every 12 hours Anayeli Collado - Externa l Dulaglutide (Trulicity) 4.5 MG/0.5ML subcutaneou s Solution Pen-injecto r 2020-11 00:00: 00 Yes [id number] 4.5mg Inject 4.5 mg into the skin once a week Anayeli Collado Trulicity 4.5 MG/0.5ML subcutaneou s Solution Pen-injecto r 2020-11 00:00: 00 11-05 00:00 :00 No [id number] INJECT 4.5 MG UNDER THE SKIN ONCE WEEKLY Anayeli Collado apixaban 5 mg tablet 2020-11 00:00: 00 10-17 05:59 :00 No [id number] 5mg Take 1 tablet by mouth every 12 (twelve) hours for 360 days. Indication s: a clot in the lung [facility] Apixaban (Eliquis) 5 MG oral Tablet 2020-11 00:00: 00 Yes [id number] 5mg Take 1 tablet (5 mg total) by mouth 2 times daily Anayeli Collado Ondansetron (ZOFRAN) 4 MG oral TABLET DISPERSIBLE 2020-11 00:00: 00 03-03 00:00 :00 No [id number] 4mg Q.[id number] 3D Take 1 tablet (4 mg total) by mouth every 8 hours as needed for nausea Anayeli Collado Sertraline HCl 50 MG oral Tablet 2020-11 00:00: 00 Yes [id number] TAKE ONE TABLET BY MOUTH DAILY Anayeli Collado Apixaban 5 MG oral Tablet 2020-11 15:09: 56 Yes 1{tbl} Take 1 tablet by mouth daily Anayeli Collado Lansoprazol e 30 MG oral Delayed Release Capsule 2020-11 15:09: 19 09-27 00:00 :00 No 30mg Take 30 mg by mouth daily Anayeli Collado Dulaglutide 4.5 MG/0.5ML subcutaneou s Solution Pen-injecto r 2020-11 00:00: 00 Yes [id number] 4.5mg Inject 4.5 mg into the skin once a week Anayeli Heaven Apixaban (Eliquis) 5 MG oral Tablet 2020-11 00:00: 00 Yes [id number] 5mg Take 1 tablet (5 mg total) by mouth 2 times daily Anayeli Collado ibuprofen 600 mg tablet 2020-11 07:16: 02 Yes 600mg Take 600 mg by mouth every 6 (six) hours as needed. [facility] dulaglutide (TRULICITY) 3 mg/0.5 mL PnIj 2020-11 07:16: 02 Yes 3mg inject 3 mg under the skin weekly. [facility] SERTraline (ZOLOFT) 25 mg tablet 2020-11 07:16: 02 Yes 25mg Take 25 mg by mouth at bedtime. [facility] hydrOXYzine 10 mg tablet 2020-11 07:16: 02 Yes 10mg Take 10 mg by mouth every 6 (six) hours as needed for Itching. [facility] apixaban (ELIQUIS) tablet 10 mg 2020-11 22:00: 00 09-30 21:59 :00 No 10mg [Order 1 Start] Name: apixaban (ELIQUIS) tablet 10 mg Signed Summary: 10 mg, Oral, Q12H ABX, 14 doses, First dose on Thu09/23/21 at 1600, Last dose on Thu09/30/21 at 0400, Routine
Indicatio ns: DVT/PE [Order 1 End] [Order 2 Start] Name: apixaban (ELIQUIS) tablet 5 mg Signed Summary: 5 mg, Oral, Q12H ABX, First dose on Thu09/30/21 at 1600, Until Discontinu ed, Routine
Indicatio ns: DVT/PE [Order 2 End] [facility] metoprolol succinate XL 50 mg 24 hr tablet 2020-11 19:16: 14 Yes 50mg Take 50 mg by mouth daily. [facility] ibuprofen 600 mg tablet 2020-11 19:16: 14 Yes 600mg Take 600 mg by mouth every 6 (six) hours as needed. [facility] dulaglutide (TRULICITY) 3 mg/0.5 mL PnIj 2020-11 19:16: 14 Yes 3mg inject 3 mg under the skin weekly. [facility] SERTraline (ZOLOFT) 25 mg tablet 2020-11 19:16: 14 Yes 25mg Take 25 mg by mouth at bedtime. [facility] hydrOXYzine 10 mg tablet 2020-11 19:16: 14 Yes 10mg Take 10 mg by mouth every 6 (six) hours as needed for Itching. [facility] sulfur hexafluorid e microsphr (LUMASON) injection 5 mL 2020-11 15:45: 00 09-23 15:45 :00 No [id number] 5mL 5 mL, Intravenou s, ONCE, 1 dose, On Thu09/23/21 at 0945, Routine
membership coordinator approving Restricted medication : KRISTIN AGUIRRE [facility] heparin 25,000 Units/250 mL (Premixed Bag) in 0.45 % NS 2020-11 13:49: 01 09-23 21:24 :27 No 1000U/h 1,000 Units/hr (10 mL/hr), IV Infusion, TITRATE, Parameters in Admin. Instr., Starting on Thu09/23/21 [...] Rang e, Dosing and Testing: &nbs p;FOR [place], [facility], AND [facility] ONLY &nbs p; - aPTT < 35: [...] ADJUST INITIAL BOLUS OR INITIAL INFUSION RATE.
[facility] ity [facility] apixaban (ELIQUIS) 5 mg tablet 2020-11 00:00: 00 Yes [id number] Please take 2 tablets twice daily for one week, and then 1 tablet twice daily for the remainder of duration Indication s: a clot in the lung [facility] fluticasone propionate 50 mcg/actuati on nasal spray 1 [place] 2020-11 17:00: 00 Yes 1{spray } 1 [place], Nasal, DAILY, First dose on 09/22/21 at 1100, Until Discontinu ed, Routine [facility] sodium chloride (OCEAN MIST NASAL) 0.65 % nasal spray 1 [place] 2020-11 17:00: 00 Yes 1{spray } 1 [place], Nasal, TID, First dose on 09/22/21 at 1100, Until Discontinu ed, Routine [facility] metoprolol tartrate (LOPRESSOR) tablet 50 mg 2020-11 04:00: 00 09-22 05:23 :00 No 50mg 50 mg, Oral, ONCE, 1 dose, On 09/21/21 at 2200, Routine [facility] SERTraline (ZOLOFT) tablet 25 mg 2020-11 03:00: 00 Yes 25mg 25 mg, Oral, QHS, First dose on 09/21/21 at 2100, Until Discontinu ed, Rout[facility] pantoprazol e (PROTONIX) EC tablet 40 mg 2020-11 15:00: 00 Yes 40mg 40 mg, Oral, DAILY, First dose on 09/21/21 at 0900, Until Discontinu ed, Routine [facility] heparin 25,000 Units/250 mL (Premixed Bag) in 0.45 % NS 2020-11 07:15: 37 09-23 12:47 :34 No 12U/kg/ h 12 Units/kg/h r ?170.4 kg (20.448 mL/hr, rounded to 20.45 mL/hr), IV Infusion, TITRATE, Parameters in Admin. Instr., Starting on 09/21/21 at 0115
CA UTION - If LMWH given in ER, AVOID bolus and start next dose/drip 12 hrs after ER dosage.&nb sp; M ust program rate using programmab le infusion pump.&nbsp ; Ngoc ck with the ordering provider first prior to any administra tion should the patient be on existing/a dditional anticoagul ant therapy. Rang e, Dosing and Testing: &nbs p;FOR [place], [facility], AND [facility] ONLY &nbs p; - aPTT < 35: [...] & nbsp;Bolus 5000 units, increase rate 300 units/hr&a mp;nbsp; - aPTT 40-49:&nbs p; Marv jj 3000 [...] ADJUST INITIAL BOLUS OR INITIAL INFUSION RATE.
[facility] Sliding Scale Insulin-Reg ular + Fsbg Testing 2020-11 06:45: 00 Yes Subcutaneo us, AC+HS, First dose on 09/21/21 at 0045, Until Discontinu ed, Routine [facility] acetaminoph en (TYLENOL) tablet 650 mg 2020-11 06:40: 45 Yes 650mg 650 mg, Oral, Q6HPRN, Starting on 09/21/21 at 0040, Until Discontinu ed, Routine, Pain (scale 1-3) [facility] dicyclomine 20 mg tablet 2020-11 00:29: 09 09-21 00:00 :00 No 20mg Take 20 mg by mouth 4 (four) times daily. [facility] lansoprazol e 30 mg capsule 2020-11 00:28: 54 09-21 00:00 :00 No 30mg Take 30 mg by mouth daily. [facility] Nitrofurant oin Monohyd Macro (Macrobid) 100 MG oral Capsule 2020-11 00:00: 00 09-25 00:00 :00 No [id number] 100mg Take 1 capsule (100 mg total) by mouth 2 times daily Anayeli gilbert Ibuprofen 600 MG oral Tablet 2020-11 00:00: 00 Yes [id number] TAKE ONE TABLET BY MOUTH EVERY 6 HOURS NEEDED FOR PAIN Anayeli gilbert Dulaglutide (Trulicity) 1.5 MG/0.5ML subcutaneou s Solution Pen-injecto r 2020-11 00:00: 00 Yes [id number] 3mg Inject 3 mg into the skin once a week Anayeli Collado Sertraline HCl 50 MG oral Tablet 2020-11 00:00: 00 Yes [id number] 50mg Take 1 tablet (50 mg total) by mouth daily Anayeli Collado Medroxyprog esterone Acetate (DEPO-PROVE RA) 150 mg/mL - Once Every 3 Months 2020-11 14:45: 00 09-04 14:44 :00 No [id number] 150mg Anayeli Collado Sucralfate 1 g oral Tablet 2020-11 09:36: 14 09-09 00:00 :00 No 1g Take 1 g by mouth 4 times daily Anayeli Collado Pantoprazol e Sodium 40 MG oral Tablet Delayed Response 2020-11 09:35: 48 09-09 00:00 :00 No 40mg Take 40 mg by mouth daily Anayeli Collado Lansoprazol e 30 MG oral Delayed Release Capsule 2020-11 08:57: 50 Yes 30mg Take 30 mg by mouth daily Anayeli Clolado Escitalopra m Oxalate 10 MG oral Tablet 2020-11 00:00: 00 Yes [id number] 10mg Take 1 tablet (10 mg total) by mouth daily Anayeli Collado hydrOXYzine HCl 10 MG oral Tablet 2020-11 00:00: 00 Yes [id number] 10mg Q.[id number] 3D Take 1 tablet (10 mg total) by mouth 3 times daily as needed for itching or anxiety Anayeli Collado Fluconazole 150 MG oral Tablet 2020-11 00:00: 00 09-09 00:00 :00 No Anayeli Collado Metoprolol Succinate 50 MG oral TABLET SR 24 HR 2020-11 10:01: 57 08-21 00:00 :00 No 50mg Take 50 mg by mouth daily Anayeli Collado Lansoprazol e 30 MG oral Delayed Release Capsule 2020-11 09:35: 43 Yes 30mg Take 30 mg by mouth daily Anayeli Collado Pantoprazol e Sodium 40 MG oral Tablet Delayed Response 2020-11 09:35: 43 Yes 40mg Take 40 mg by mouth daily Anayeli Collado Sucralfate 1 g oral Tablet 2020-11 09:35: 43 Yes 1g Take 1 g by mouth 4 times daily Anayeli Collado Metoprolol Succinate 50 MG oral TABLET SR 24 HR 2020-11 00:00: 00 Yes [id number] 50mg Take 1 tablet (50 mg total) by mouth daily Anayeli Collado Empaglifloz in (Jardiance) 25 MG oral Tablet 2020-11 00:00: 00 Yes [id number] 25mg Take 25 mg by mouth daily Anayeli Collado Dulaglutide (Trulicity) 1.5 MG/0.5ML subcutaneou s Solution Pen-injecto r 2020-11 00:00: 00 Yes [id number] 1.5mg Inject 1.5 mg into the skin once a week Anayeli Collado Ibuprofen 600 MG oral Tablet 2020-11 00:00: 00 Yes [id number] 600mg Q6H Take 1 tablet (600 mg total) by mouth every 6 hours as needed for pain Anayeli Collado Nystatin-Tr iamcinolone 706754-8.1 UNIT/GM-% apply externally Cream 2020-11 00:00: 00 09-26 00:00 :00 No [id number] Apply to affected area twice daily as needed for irritation Anayeli Collado - Externa l Fluconazole 150 MG oral Tablet 2020-11 00:00: 00 08-22 04:59 :00 No [id number] 150mg Take 1 tablet (150 mg total) by mouth once for 1 dose Anayeli Collado Metoprolol Succinate 50 MG oral TABLET SR 24 HR 07-26 15:42: 22 Yes 50mg Take 50 mg by mouth daily Anayeli Collado Lansoprazol e 30 MG oral Delayed Release Capsule 07-26 15:42: 22 Yes 30mg Take 30 mg by mouth daily Anayeli Collado Pantoprazol e Sodium 40 MG oral Tablet Delayed Response 07-26 15:42: 22 Yes 40mg Take 40 mg by mouth daily Anayeli Collado Sucralfate 1 g oral Tablet 07-26 15:42: 22 Yes 1g Take 1 g by mouth 4 times daily Anayeli Collado Dulaglutide (Trulicity) 1.5 MG/0.5ML subcutaneou s Solution Pen-injecto r 07-26 00:00: 00 Yes [id number] 1.5mg Inject 1.5 mg into the skin once a week Anayeli Collado Amoxicillin 875 MG oral Tablet 07-26 00:00: 00 09-09 00:00 :00 No [id number] 875mg Take 1 tablet (875 mg total) by mouth 2 times daily Anayeli Collado Acetaminoph en-Codeine 300-30 MG oral Tablet 07-26 00:00: 00 09-09 00:00 :00 No [id number] 1{tbl} Q4H Take 1 tablet by mouth every 4 hours as needed for pain Anayeli Collado NEOMYCIN-PO LYMYXIN-HC, OTIC, 1 % otic Solution 07-26 00:00: 00 08-03 04:59 :00 No [id number] 85551 2[drp] Place 2 drops into the right ear 3 times daily for 7 days Anayeli Collado Empaglifloz in (Jardiance) 25 MG oral Tablet 06-21 00:00: 00 Yes [id number] 25mg Take 25 mg by mouth daily Anayeli Collado Dulaglutide (Trulicity) 0.75 MG/0.5ML subcutaneou s Solution Pen-injecto r 06-21 00:00: 00 Yes [id number] .75mg Inject 0.75 mg into the skin once a week Anayeli Collado Loperamide HCl 2 MG oral Capsule 06-07 00:00: 00 09-09 00:00 :00 No [id number] TAKE ONE CAPSULE BY MOUTH FOUR TIMES A DAY NEEDED FOR DIARRHEA Anayeli Collado Ondansetron HCl 4 MG oral Tablet 05-15 00:00: 00 09-26 00:00 :00 No [id number] 4mg Q.[id number] 3D Take 1 tablet (4 mg total) by mouth every 8 hours as needed for nausea Anayeli Collado - Externa l Ibuprofen 600 MG oral Tablet 04-10 00:00: 00 Yes [id number] 600mg Q8H Take 1 tablet (600 mg total) by mouth every 8 hours as needed for pain Anayeli Collado Medroxyprog esterone Acetate (DEPO-PROVE RA) 150 mg/mL - Once Every 3 Months 03-27 17:45: 00 12-22 18:59 :00 No [id number] 150mg Anayeli Collado Losartan Potassium 25 MG oral Tablet - 00:00: 00 Yes Anayeli Collado losartan 25 mg tablet 2019-11 20:16: 24 10-17 00:00 :00 No 25mg Take 25 mg by mouth daily. [facility] metFORMIN 500 mg tablet 2019-11 20:07: 11 10-17 00:00 :00 No 500mg Take 500 mg by mouth 2 (two) times daily with meals. [facility] ondansetron 4 mg tablet 2019-11 20:07: 02 10-17 00:00 :00 No 4mg Take 4 mg by mouth every 8 (eight) hours as needed. [facility] SUCRALFATE ORAL 2019-11 20:06: 56 10-17 00:00 :00 No Take by mouth. [facility] SITagliptin (JANUVIA) 100 mg tablet 2019-11 20:06: 43 10-17 00:00 :00 No 100mg Take 100 mg by mouth daily. [facility] methocarbam oL 750 mg tablet 2019-11 20:06: 17 10-17 00:00 :00 No 750mg Take 750 mg by mouth 4 (four) times daily. [facility] metoprolol succinate XL 50 mg 24 hr tablet 2019-11 19:51: 43 Yes 50mg Take 50 mg by mouth daily. [facility] dicyclomine 20 mg tablet 2019-11 19:51: 43 Yes 20mg Take 20 mg by mouth 4 (four) times daily. [facility] lansoprazol e 30 mg capsule 2019-11 19:51: 43 Yes 30mg Take 30 mg by mouth daily. [facility] empaglifloz in (JARDIANCE) 10 mg Tab 2019-11 00:00: 00 Yes [id number] 10mg Take 10 mg by mouth every morning. [facility] FREESTYLE LITE STRIPS strip 2019-11 00:00: 00 Yes [id number] Use as directed daily [facility] FREESTYLE LANCETS 28 gauge Misc 2019-11 00:00: 00 Yes [id number] Use as directed daily [facility] Blood Glucose Monitoring Suppl (FreeStyle Lite) does not apply Device 2019-11 00:00: 00 09-25 00:00 :00 No Use as directed Anayeli Collado - Externa l losartan 25 mg tablet 2019-11 00:00: 00 09-21 00:00 :00 No [id number] 25mg Take 1 tablet by mouth daily. [facility] azithromyci n 250 mg tablet 2019-11 00:00: 00 10-17 00:00 :00 No [facility] bromphenira mine-pseudo ephedrine-D M 2-30-10 mg/5 mL syrup 2019-1130 00:00: 00 10-17 00:00 :00 No [facility] pantoprazol e 40 mg EC tablet 2019-11 0-03 00:00: 00 10-17 00:00 :00 No [facility] meloxicam 15 mg tablet 9-15 00:00: 10-17 00:00 :00 No [facility] Immunizations Ordered Immunization Name Filled Immunization Name Date Status Comments Source Covid-19 Vaccine (Moderna), Mrna-lnp, David Protein, Pf, 100 Mcg/0.5ml,IM 2021-03-18 00:00:00 Completed Anayeli Seybold Covid-19 Vaccine (Moderna), Mrna-lnp, David Protein, Pf, 100 Mcg/0.5ml,IM 2021-03-18 00:00:00 Completed Anayeli Seybold Covid-19 Vaccine (Moderna), Mrna-lnp, David Protein, Pf, 100 Mcg/0.5ml,IM 2021-03-18 00:00:00 Completed Anayeli ybold Covid-19 Vaccine Moderna (Spikevax), Mrna-lnp, David Protein, Pf 2021-03-18 00:00:00 Completed Anayeli Seybold Covid-19 Vaccine Moderna (Spikevax), Mrna-lnp, David Protein, Pf 2021-03-18 00:00:00 Completed Anayeli Seybold Covid-19 Vaccine Moderna (Spikevax), Mrna-lnp, David Protein, Pf 2021-03-18 00:00:00 Completed Anayeli Seybold - External Covid-19 Vaccine Moderna (Spikevax), Mrna-lnp, David Protein, Pf 2021-03-18 00:00:00 Completed Anayeli Seybold - External Covid-19 Vaccine (Moderna), Mrna-lnp, David Protein, Pf, 100 Mcg/0.5ml,IM 2021-03-18 00:00:00 Completed Anayeli Seybold Covid-19 Vaccine (Moderna), Mrna-lnp, David Protein, Pf, 100 Mcg/0.5ml,IM 2021-03-18 00:00:00 Completed Anayeli Seybold Covid-19 Vaccine (Moderna), Mrna-lnp, David Protein, Pf, 100 Mcg/0.5ml,IM 2021-02-21 00:00:00 Completed Anayeli Seybold Covid-19 Vaccine (Moderna), Mrna-lnp, David Protein, Pf, 100 Mcg/0.5ml,IM 2021-02-21 00:00:00 Completed Anayeli Seybold Covid-19 Vaccine (Moderna), Mrna-lnp, David Protein, Pf, 100 Mcg/0.5ml,IM 2021-02-21 00:00:00 Completed Anayeli Seybold Covid-19 Vaccine Moderna (Spikevax), Mrna-lnp, David Protein, Pf 2021-02-21 00:00:00 Completed Anayeli Seybold Covid-19 Vaccine Moderna (Spikevax), Mrna-lnp, David Protein, Pf 2021-02-21 00:00:00 Completed Anayeli Seybold Covid-19 Vaccine Moderna (Spikevax), Mrna-lnp, David Protein, Pf 2021-02-21 00:00:00 Completed Anayeli Seybold - External Covid-19 Vaccine Moderna (Spikevax), Mrna-lnp, David Protein, Pf 2021-02-21 00:00:00 Completed Anayeli Seybold - External Covid-19 Vaccine (Moderna), Mrna-lnp, David Protein, Pf, 100 Mcg/0.5ml,IM 2021-02-21 00:00:00 Completed Anayeli Seybold Covid-19 Vaccine (Moderna), Mrna-lnp, David Protein, Pf, 100 Mcg/0.5ml,IM 2021-02-21 00:00:00 Completed Anayeli Seybold Covid-19 Vaccine (Moderna), Mrna-lnp, David Protein, Pf, 100 Mcg/0.5ml,IM 2021-02-20 00:00:00 Completed Anayeli Seybold Covid-19 Vaccine (Moderna), Mrna-lnp, David Protein, Pf, 100 Mcg/0.5ml,IM 2021-02-20 00:00:00 Completed Anayeli Negronybold Covid-19 Vaccine (Moderna), Mrna-lnp, David Protein, Pf, 100 Mcg/0.5ml,IM 2021-02-20 00:00:00 Completed Anayeli Negronybold Covid-19 Vaccine Moderna (Spikevax), Mrna-lnp, David Protein, Pf 2021-02-20 00:00:00 Completed Anayeli Seybold Covid-19 Vaccine Moderna (Spikevax), Mrna-lnp, David Protein, Pf 2021-02-20 00:00:00 Completed Anayeli ybold Covid-19 Vaccine Moderna (Spikevax), Mrna-lnp, David Protein, Pf 2021-02-20 00:00:00 Completed Anayeli andrzejold - External Covid-19 Vaccine Moderna (Spikevax), Mrna-lnp, David Protein, Pf 2021-02-20 00:00:00 Completed Anayeli Negronybold - External Covid-19 Vaccine (Moderna), Mrna-lnp, David Protein, Pf, 100 Mcg/0.5ml,IM 2021-02-20 00:00:00 Completed Anayeli Seybold Covid-19 Vaccine (Moderna), Mrna-lnp, David Protein, Pf, 100 Mcg/0.5ml,IM 2021-02-20 00:00:00 Completed Anayeli Collado Tdap- (Boostrix, Adacel) 2017-08-06 00:00:00 Completed Anayeli Negronybold Tdap- (Boostrix, Adacel) 2017-08-06 00:00:00 Completed Anayeli Seybold Tdap- (Boostrix, Adacel) 2017-08-06 00:00:00 Completed Anayeli Seybold Tdap- (Boostrix, Adacel) 2017-08-06 00:00:00 Completed Anayeli Seybold Tdap- (Boostrix, Adacel) 2017-08-06 00:00:00 Completed Anayeli Seybold Tdap- (Boostrix, Adacel) 2017-08-06 00:00:00 Completed Anayeli Negronybold - External Tdap- (Boostrix, Adacel) 2017-08-06 00:00:00 Completed Anayeli Negronybold - External Tdap- (Boostrix, Adacel) 2017-08-06 00:00:00 Completed Anayeli Negronybold Tdap- (Boostrix, Adacel) 2017-08-06 00:00:00 Completed Anayeli Collado Tdap- (Boostrix, Adacel) Unknown Completed Anayeli Collado - External Covid-19 Vaccine Moderna (Spikevax), Mrna-lnp, David Protein, Pf Unknown Completed Anayeli Negronybold - External Tdap- (Boostrix, Adacel) Unknown Completed Anayeli Negronybold - External Covid-19 Vaccine Moderna (Spikevax), Mrna-lnp, David Protein, Pf Unknown Completed Anayeli Negronybold - External Tdap- (Boostrix, Adacel) Unknown Completed Anayeli Diamondold - External Covid-19 Vaccine Moderna (Spikevax), Mrna-lnp, David Protein, Pf Unknown Completed Anayeli Negronybold - External Tdap- (Boostrix, Adacel) Unknown Completed Anayeli Diamondold - External Covid-19 Vaccine Moderna (Spikevax), Mrna-lnp, David Protein, Pf Unknown Completed Anayeli Collado - External Tdap- (Boostrix, Adacel) Unknown Completed Anayeli Diamondold - External Covid-19 Vaccine Moderna (Spikevax), Mrna-lnp, David Protein, Pf Unknown Completed Anayeli Collado - External Vital Signs Vital Name Observation Time Observation Value Comments S ource Systolic blood pressure 2024-09-23 20:03:00 134 mm[Hg] Anayelitamiko Diamondvirgil ld - External Diastolic blood pressure 2024-09-23 20:03:00 80 mm[Hg] Anayelitamiko Diamondvirgil ld - External Body temperature 2024-09-23 20:03:00 37 Rosanna Anayeli Loboelaine - External Respiratory rate 2024-09-23 20:03:00 15 /min Anayeli Loboelaine - External Body height 2024-09-23 20:03:00 170.2 cm Bety Collado - External Body weight 2024-09-23 20:03:00 180.985 kg Bety ey Seybold - External BMI 2024-09-23 20:03:00 62.49 kg/m2 Bety ey Seybold - External Oxygen saturation in Arterial blood by Pulse oximetry 2024-09-23 20:03:00 94 /min Anayeli Seybo ld - External Systolic blood pressure 2024-02-29 14:52:00 150 mm[Hg] Anayeli Seybo ld - External Diastolic blood pressure 2024-02-29 14:52:00 98 mm[Hg] Anayeli Seybo ld - External Heart rate 2024-02-29 14:41:00 102 /min Giovannyse y Seybold - External Body temperature 2024-02-29 14:41:00 36.94 Rosanna Anayeli Seybold - External Respiratory rate 2024-02-29 14:41:00 16 /min Anayeli Seybold - External Body height 2024-02-29 14:41:00 170.2 cm Bety ey Seybold - External Body weight 2024-02-29 14:41:00 179.341 kg Bety ey Seybold - External BMI 2024-02-29 14:41:00 61.92 kg/m2 Bety ey Seybold - External Oxygen saturation in Arterial blood by Pulse oximetry 2024-02-29 14:41:00 98 /min Anayeli Negronybo ld - External Systolic blood pressure 2023-11-19 13:54:00 126 mm[Hg] Anayeli Seybo ld - External Diastolic blood pressure 2023-11-19 13:54:00 78 mm[Hg] Anayeli Negronybo ld - External Heart rate 2023-11-19 13:54:00 104 /min Kelse y Seybold - External Body temperature 2023-11-19 13:54:00 37.06 Rosanna Anayeli Seybold - External Respiratory rate 2023-11-19 13:54:00 15 /min Anayeli Seybold - External Body height 2023-11-19 13:54:00 170.2 cm Bety ey Seybold - External Body weight 2023-11-19 13:54:00 171.46 kg Bety ey Seybold - External BMI 2023-11-19 13:54:00 59.20 kg/m2 Bety ey Seybold - External Oxygen saturation in Arterial blood by Pulse oximetry 2023-11-19 13:54:00 96 /min Anayeli Seybo ld - External Systolic blood pressure 2023-08-24 21:22:00 128 mm[Hg] Anayeli Seybo ld - External Diastolic blood pressure 2023-08-24 21:22:00 84 mm[Hg] Anayeli Seybo ld - External Heart rate 2023-08-24 20:57:00 95 /min Kelse y Seybold - External Body temperature 2023-08-24 20:57:00 36.61 Rosanna Anayeli Seybold - External Respiratory rate 2023-08-24 20:57:00 20 /min Anayeli Seybold - External Body height 2023-08-24 20:57:00 170.2 cm Bety ey Seybold - External Body weight 2023-08-24 20:57:00 171.913 kg Bety ey Seybold - External BMI 2023-08-24 20:57:00 59.36 kg/m2 Bety ey Seybold - External Oxygen saturation in Arterial blood by Pulse oximetry 2023-08-24 20:57:00 99 /min Anayeli Seybo ld - External Systolic blood pressure 2023-05-06 21:00:00 172 mm[Hg] Anayeli Seybo ld - External Diastolic blood pressure 2023-05-06 21:00:00 93 mm[Hg] Anayeli Seybo ld - External Heart rate 2023-05-06 21:00:00 86 /min Giovannyse y Seybold - External Body temperature 2023-05-06 21:00:00 37.17 Rosanna Anayeli Seybold - External Respiratory rate 2023-05-06 21:00:00 15 /min Anayeli Seybold - External Body height 2023-05-06 21:00:00 170.2 cm Bety ey Seybold - External Body weight 2023-05-06 21:00:00 178.264 kg Bety ey Seybold - External BMI 2023-05-06 21:00:00 61.55 kg/m2 Bety ey Seybold - External Systolic blood pressure 2022-09-26 21:19:00 102 mm[Hg] Anayeli Seybo ld - External Diastolic blood pressure 2022-09-26 21:19:00 64 mm[Hg] Anayeli Negronybo ld - External Heart rate 2022-09-26 21:19:00 98 /min Kelse y Seybold - External Body temperature 2022-09-26 21:19:00 36.06 Rosanna Anayeli Seybold - External Respiratory rate 2022-09-26 21:19:00 16 /min Anayeli Seybold - External Body height 2022-09-26 21:19:00 170.2 cm Bety ey Seybold - External Body weight 2022-09-26 21:19:00 178.264 kg Bety ey Seybold - External BMI 2022-09-26 21:19:00 61.55 kg/m2 Bety ey Seybold - External Systolic blood pressure 2021-09-27 22:29:00 132 mm[Hg] Anayeli Seybo ld Diastolic blood pressure 2021-09-27 22:29:00 78 mm[Hg] Anayeli Negronybo ld Heart rate 2021-09-27 22:29:00 103 /min Kelse y Seybold Body temperature 2021-09-27 22:29:00 36.72 Rosanna Anayeli Seybold Respiratory rate 2021-09-27 22:29:00 14 /min Anayeli Seybold Body height 2021-09-27 22:29:00 170.2 cm Bety ey Seybold Body weight 2021-09-27 22:29:00 128.822 kg Bety ey Seybold BMI 2021-09-27 22:29:00 44.48 kg/m2 Bety ey Seybold Oxygen saturation in Arterial blood by Pulse oximetry 2021-09-27 22:29:00 96 /min Anayeli Negronybo ld Systolic blood pressure 2021-09-23 22:43:00 148 mm[Hg] [facility] Diastolic blood pressure 2021-09-23 22:43:00 81 mm[Hg] [facility] Heart rate 2021-09-23 22:43:00 97 /min [facility] Body temperature 2021-09-23 22:43:00 36.78 Rosanna [facility] Respiratory rate 2021-09-23 22:43:00 18 /min [facility] Oxygen saturation in Arterial blood by Pulse oximetry 2021-09-23 22:43:00 95 /min [place] [facility] Body height 2021-09-21 06:15:00 170.2 cm [facility] Body weight 2021-09-21 06:15:00 170.416 kg [facility] BMI 2021-09-21 06:15:00 58.84 kg/m2 [facility] Systolic blood pressure 2021-09-09 13:48:00 108 mm[Hg] Anayeli Seybo ld Diastolic blood pressure 2021-09-09 13:48:00 88 mm[Hg] Anayeli Seybo ld Heart rate 2021-09-09 13:48:00 102 /min Kelse y Seybold Body temperature 2021-09-09 13:48:00 36.17 Rosanna Anayeli Seybold Respiratory rate 2021-09-09 13:48:00 20 /min Anayeli Seybold Body height 2021-09-09 13:48:00 170.2 cm Bety ey Seybold Body weight 2021-09-09 13:48:00 128.822 kg Bety ey Seybold BMI 2021-09-09 13:48:00 44.48 kg/m2 Bety ey Seybold Systolic blood pressure 2021-08-21 14:24:00 134 mm[Hg] Anayeli Seybo ld Diastolic blood pressure 2021-08-21 14:24:00 72 mm[Hg] Anayeli Seybo ld Heart rate 2021-08-21 14:24:00 106 /min Kelse y Seybold Body temperature 2021-08-21 14:24:00 35.17 Rosanna Anayeli Seybold Respiratory rate 2021-08-21 14:24:00 20 /min Anayeli Seybold Body height 2021-08-21 14:24:00 152.4 cm Bety ey Seybold Body weight 2021-08-21 14:24:00 177.356 kg Bety ey Seybold BMI 2021-08-21 14:24:00 76.36 kg/m2 Bety ey Seybold Systolic blood pressure 2021-07-26 20:38:00 124 mm[Hg] Anayeli Seybo ld Diastolic blood pressure 2021-07-26 20:38:00 76 mm[Hg] Anayeli serrano Heart rate 2021-07-26 20:38:00 108 /min Citlali Collado Body temperature 2021-07-26 20:38:00 35.11 Rosanna Anayeli Collado Respiratory rate 2021-07-26 20:38:00 20 /min Anayeli Collado Body height 2021-07-26 20:38:00 152.4 cm Bety Collado Body weight 2021-07-26 20:38:00 177.084 kg Bety Collado BMI 2021-07-26 20:38:00 76.24 kg/m2 Bety Collado Systolic blood pressure 2020-10-17 19:41:00 136 mm[Hg] [facility] Diastolic blood pressure 2020-10-17 19:41:00 76 mm[Hg] [facility] Heart rate 2020-10-17 19:41:00 107 /min [facility] Body height 2020-10-17 19:41:00 167.6 cm [facility] Body weight 2020-10-17 19:41:00 181.892 kg [facility] BMI 2020-10-17 19:41:00 64.72 kg/m2 [facility] Oxygen saturation in Arterial blood by Pulse oximetry 2020-10-17 19:41:00 96 /min [facility] Procedures Procedure Date / Time Performed Performing Clinician Source DNR 2021-10-01 06:01:00 Doctor Unass igned, Loco [place] [facility] POCT GLUCOSE (AUTOMATED) 2021-09-23 22:48:00 Luis Antonio Segovia [place] [facility] POCT GLUCOSE (AUTOMATED) 2021-09-23 17:31:00 Luis Antonio Segovia [facility] CT CHEST PULMONARY ANGIOGRAM 2021-09-23 17:18:38 iMcah [facility] ACTIVATED PARTIAL THRMPLAS KEMAL 2021-09-23 16:24:00 Micah [facility] TRANSTHORACIC ECHO (TTE) COMPLETE W/ CONTRAST 2021-09-23 15:06:00 Micah [facility] POCT GLUCOSE (AUTOMATED) 2021-09-23 14:03:00 Luis Antonio Segovia [facility] CBC WITHOUT DIFF 2021-09-23 11:28:00 Tom Pelletier [facility] EXTRA TUBE LT. GREEN 2021-09-23 11:28:00 Elizabet Montez [facility] ACTIVATED PARTIAL THRMPLAS KEMAL 2021-09-23 04:14:00 Micah [facility] POCT GLUCOSE (AUTOMATED) 2021-09-23 03:04:00 Luis Antonio Segovia [facility] POCT GLUCOSE (AUTOMATED) 2021-09-22 23:06:00 Luis Antonio Segovia [facility] POCT GLUCOSE (AUTOMATED) 2021-09-22 18:56:00 Luis Antonio Segovia [facility] ACTIVATED PARTIAL THRMPLAS KEMAL 2021-09-22 15:51:00 Micah [facility] POCT GLUCOSE (AUTOMATED) 2021-09-22 13:59:00 [facility] 2021-09-22 11:02:00 Akil Pelletier [facility] POCT GLUCOSE (AUTOMATED) 2021-09-22 06:49:00 Luis Antonio Segovia [facility] ACTIVATED PARTIAL THRMPLAS KEMAL 2021-09-22 03:44:00 Micah [facility] POCT GLUCOSE (AUTOMATED) 2021-09-22 02:29:00 Luis Antonio Segovia [facility] POCT GLUCOSE (AUTOMATED) 2021-09-21 23:42:00 Luis Antonio Segovia [facility] TROPONIN I 2021-09-21 20:11:00 Tom Pelletier [facility] ACTIVATED PARTIAL THRMPLAS KEMAL 2021-09-21 20:11:00 Micah [facility] POCT GLUCOSE (AUTOMATED) 2021-09-21 17:53:00 Luis Antonio Segovia [facility] POCT GLUCOSE (AUTOMATED) 2021-09-21 13:51:00 Luis Antonio Segovia [facility] ACTIVATED PARTIAL THRMPLAS KEMAL 2021-09-21 12:27:00 Micah [facility] POCT GLUCOSE (AUTOMATED) 2021-09-21 06:58:00 Luis Antonio Segovia [facility] PHOSPHORUS 2021-09-21 06:53:00 Micah [facility] MAGNESIUM 2021-09-21 06:53:00 Micah [facility] TROPONIN I 2021-09-21 06:53:00 Tom Pelletier [facility] HEPATIC FUNCTION PANEL (12327) (ALB,T.PRO,BILI T,BU/BC,ALT,AST,ALK PHOS) 2021-09-21 06:53:00 Micah [facility] BASIC METABOLIC PANEL (NA, K, CL, CO2, GLUCOSE, BUN, CREATININE, CA) 2021-09-21 06:53:00 Micah [facility] DIFF CONSULT INTERPRETATION 2021-09-21 06:53:00 Tom Pelletier [facility] CBC WITH DIFF 2021-09-21 06:53:00 Micki Obrien [facility] GLYCOSYLATED HEMOGLOBIN (A1C) 2021-09-21 06:53:00 Micah [facility] PROTHROMBIN TIME / INR 2021-09-21 06:53:00 Krystal Obrien [facility] ACTIVATED PARTIAL THRMPLAS KEMAL 2021-09-21 06:53:00 Micah [facility] N-TERMINAL PRO-BNP 2021-09-21 06:53:00 Micki Obrien [facility] POCT HEMOGLOBIN A1C TEST 2020-10-17 19:40:00 Abner Aguilera [facility] ASSIGNMENT OF BENEFITS 2020-10-17 19:08:21 Docto r Unassigned, Loco [facility] Encounters Start Date/Time End Date/Time Encounter Type Admission Type Attending Clinicians Care Facility Care Department Encounter ID Source 2023-04-10 13:46:51 Outpatient [facility] [id number] [facility] 2025-02-15 00:00:00 2025-02-15 00:00:00 Outpatient KAILEY HORNE [id number] Anayeli Collado 2025-02-15 00:00:00 2025-02-15 00:00:00 Outpatient HUNDL, KAILEY GRANGER [id number] Anayeli Negronybold 2025-01-05 00:00:00 2025-01-05 00:00:00 Outpatient HUNDL, KAILEY GRANGER [id number] Anayeli Negronybold 2024-12-15 00:00:00 2024-12-15 00:00:00 Outpatient HUNDL, KAILEY GRANGER [id number] [facility] 2024-11-25 00:00:00 2024-11-25 00:00:00 Outpatient HUNDL, KAILEY GRANGER [id number] [facility] 2024-11-08 10:30:00 2024-11-08 10:30:00 Outpatient HUNDL, KAILEY GRANGER [id number] [facility] 2024-10-16 00:00:00 2024-10-16 00:00:00 Outpatient HUNDL, KAILEY GRANGER [id number] [facility] 2024-10-16 00:00:00 2024-10-16 00:00:00 Outpatient HUNDL, KAILEY GRANGER [id number] Anayeli Seybold 2024-10-16 00:00:00 2024-10-16 00:00:00 Outpatient HUNDL, KAILEY GRANGER [id number] Anayeli Negronybold 2024-10-02 00:00:00 2024-10-02 00:00:00 Outpatient HUNDL, KAILEY GRANGER [id number] Anayeli Seybold 2024-09-30 00:00:00 2024-09-30 00:00:00 Outpatient HUNDL, KAILEY GRANGER [id number] Anayeli Seybold 2024-09-29 00:00:00 2024-09-29 00:00:00 Outpatient HUNDL, KAILEY GRANGER [id number] Anayeli Seybold 2024-09-28 00:00:00 2024-09-28 00:00:00 Outpatient HUNDL, KAILEY GRANGER [id number] Anayeli Seybold 2024-09-28 00:00:00 2024-09-28 00:00:00 Outpatient HUNDL, KAILEY ANAYELI GRANGER [id number] Anayeli Seybold 2024-09-23 14:50:00 2024-09-23 14:50:00 Outpatient LAB90 ANAYELI GRANGER [id number] Anayeli Seybold 2024-09-23 14:00:00 2024-09-23 14:00:00 Outpatient HUNDL, KAILEY GRANGER [id number] Anayeli Seybold 2024-08-11 00:00:00 2024-08-11 00:00:00 Outpatient HUNDL, KAILEY GRANGER [id number] Anayeli Seybold 2024-08-07 00:00:00 2024-08-07 00:00:00 Outpatient HUNDL, KAILEY GRANGER [id number] [facility] 2024-06-26 00:00:00 2024-06-26 00:00:00 Outpatient HUNDL, KAILEY GRANGER [id number] [facility] 2024-06-22 14:00:00 2024-06-22 14:00:00 Outpatient HUNDL, KAILEY GRANGER [id number] Anayeli Seybold 2024-06-02 00:00:00 2024-06-02 00:00:00 Outpatient HUNDL, KAILEY GRANGER [id number] [facility] 2024-05-31 00:00:00 2024-05-31 00:00:00 Outpatient HUNDL, KAILEY GRANGER [id number] Anayeli Seybold 2024-05-25 00:00:00 2024-05-25 00:00:00 Outpatient HUNDL, KAILEY GRANGER [id number] Anayeli Seybold 2024-05-19 00:00:00 2024-05-19 00:00:00 Outpatient HUNDL, KAILEY GRANGER [id number] Anayeli Seybold 2024-05-04 13:30:00 2024-05-04 13:30:00 Outpatient HUNDL, KAILEY GRANGER [id number] Anayeli Seybold 2024-04-12 00:00:00 2024-04-12 00:00:00 Outpatient HUNDL, KAILEY GRANGER [id number] Anayeli Seybold 2024-04-08 00:00:00 2024-04-08 00:00:00 Outpatient HUNDL, KAILEY GRANGER [id number] Anayeli Seybold 2024-04-08 00:00:00 2024-04-08 00:00:00 Outpatient HUNDL, KAILEY GRANGER [id number] Anayeli Seybold 2024-04-07 00:00:00 2024-04-07 00:00:00 Outpatient HUNDL, KAILEY GRANGER [id number] Anayeli Seybold 2024-04-06 00:00:00 2024-04-06 00:00:00 Outpatient HUNDL, KAILEY GRANGER [id number] Anayeli Seybold 2024-03-11 00:00:00 2024-03-11 00:00:00 Outpatient HUNDL, KAILEY GRANGER [id number] [facility] 2024-02-29 10:00:00 2024-02-29 10:00:00 Outpatient HUNDL, KAILEY GRANGER [id number] Anayeli Seybold 2024-02-21 00:00:00 2024-02-21 00:00:00 Outpatient HUNDL, KAILEY GRANGER [id number] Anayeli Seybold 2024-02-11 00:00:00 2024-02-11 00:00:00 Outpatient HUNDL, KAILEY GRANGER [id number] Anayeli Seybold 2023-12-28 00:00:00 2023-12-28 00:00:00 Outpatient HUNDL, KAILEY GRANGER [id number] Anayeli Seybold 2023-12-08 00:00:00 2023-12-08 00:00:00 Outpatient HUNDL, KAILEY GRANGER [id number] Anayeli Seybold 2023-11-25 00:00:00 2023-11-25 00:00:00 Outpatient HUNDL, KAILEY GRANGER [id number] Anayeli Seybold 2023-11-19 08:00:00 2023-11-19 08:00:00 Outpatient HUNDL, KAI[facility] GRANGER [id number] [facility]23-11-17 00:00:00 2023-11-17 00:00:00 Outpatient CHEYANNE, KAILEY GRANGER [id number] Anayeli [facility] 2023-11-11 18:30:00 2023-11-11 18:30:00 Outpatient FREEMAN SCHULTZ ANAYELI GRANGER [id number] [facility] 2023-10-23 00:00:00 2023-10-23 00:00:00 Outpatient HUNDL, KAILEY GRANGER [id number] [facility] 2023-09-25 00:00:00 2023-09-25 00:00:00 Outpatient HUNDL, KAILEY GRANGER [id number] [facility] 2023-09-21 15:30:00 2023-09-21 15:30:00 Outpatient HUNDL, KAILEY GRANGER [id number] [facility] 2023-09-14 00:00:00 2023-09-14 00:00:00 Outpatient HUNDL, KAILEY GRANGER [id number] [facility] 2023-09-09 00:00:00 2023-09-09 00:00:00 Outpatient GC_GCBZW_Ka diyala_S PRIV PRIV [id number] [facility] 2023-08-28 00:00:00 2023-08-28 00:00:00 Outpatient HUNDL, KAILEY GRANGER [id number] [facility] 2023-08-28 00:00:00 2023-08-28 00:00:00 Outpatient HUNDL, KAILEY GRANGER [id number] [facility] 2023-08-24 17:15:00 2023-08-24 17:15:00 Outpatient MALINDA90 ANAYELI GRANGER [id number] [facility] 2023-08-24 16:30:00 2023-08-24 16:30:00 Outpatient HUNDL, KAILEY GRANGER [id number] [facility] 2023-08-12 00:00:00 2023-08-12 00:00:00 Outpatient HUNDL, KAILEY GRANGER [id number] Anayeli [facility] 2023-08-06 00:00:00 2023-08-06 00:00:00 Outpatient HUNDL, KAILEY GRANGER [id number] Anayeli Seybold 2023-07-20 00:00:00 2023-07-20 00:00:00 Outpatient HUNDL, KAILEY GRANGER [id number] Anayeli ybold 2023-07-04 00:00:00 2023-07-04 00:00:00 Outpatient HUNDL, KAILEY GRANGER [id number] [facility] 2023-07-03 00:00:00 2023-07-03 00:00:00 Outpatient HUNDL, KAILEY GRANGER [id number] [facility] 2023-06-02 00:00:00 2023-06-02 00:00:00 Outpatient HUNDL, KAILEY GRANGER [id number] [facility] 2023-05-27 00:00:00 2023-05-27 00:00:00 Outpatient HUNDL, KAILEY GRANGER [id number] [facility] 2023-05-07 00:00:00 2023-05-07 00:00:00 Outpatient HUNDL, KAILEY GRANGER [id number] [facility] 2023-05-07 00:00:00 2023-05-07 00:00:00 Outpatient HUNDL, KAILEY GRANGER [id number] Anayeli Seybold 2023-05-06 16:45:00 2023-05-06 16:45:00 Outpatient LAB90 ANAYELI GRANGER [id number] Anayeli Seybold 2023-05-06 16:00:00 2023-05-06 16:00:00 Outpatient HUNDL, KAILEY GRANGER [id number] Anayeli Seybold 2023-05-04 13:30:00 2023-05-04 13:30:00 Outpatient MARIAA OLIVEIRA [id number] Anayeli Seybold 2023-05-04 00:00:00 2023-05-04 00:00:00 Outpatient HUNDL, KAILEY GRANGER [id number] Anayeli Seybold 2023-04-28 00:00:00 2023-04-28 00:00:00 Outpatient HUNDL, KAILEY ANAYELI GRANGER [id number] Anayeli Seybold 2023-04-24 00:00:00 2023-04-24 00:00:00 Outpatient HUNDL, KAILEY ANAYELI GRANGER [id number] Anayeli Seybold 2023-04-17 08:30:00 2023-04-17 08:30:00 Outpatient LAB90 ANAYELI GRANGER [id number] Anayeli Seybold 2023-04-17 08:00:00 2023-04-17 08:00:00 Outpatient NT90 ANAYELI GRANGER [id number] Anayeli Seybold 2023-04-09 00:00:00 2023-04-09 00:00:00 Outpatient HUNDL, KAILEY GRANGER [id number] Anayeli Seybold 2023-03-26 00:00:00 2023-03-26 00:00:00 Outpatient HUNDL, KAILEY GRANGER [id number] Anayeli Seybold 2023-03-09 00:00:00 2023-03-09 00:00:00 Outpatient HUNDL, KAILEY GRANGER [id number] Anayeli Seybold 2023-03-09 00:00:00 2023-03-09 00:00:00 Outpatient DARRELTEODORO MCKEON [id number] Anayeli Seybold 2023-03-02 00:00:00 2023-03-02 00:00:00 Outpatient TEODORO ROJO [id number] Anayeli Seybold 2023-02-24 00:00:00 2023-02-24 00:00:00 Outpatient HUNDL, KAILEY GRANGER [id number] Anayeli Seybold 2023-02-19 00:00:00 2023-02-19 00:00:00 Outpatient HUNDL, KAILEY GRANGER [id number] Anayeli Seybold 2023-02-18 00:00:00 2023-02-18 00:00:00 Outpatient HUNDL, KAILEY GRANGER [id number] Anayeli Seybold 2023-02-12 00:00:00 2023-02-12 00:00:00 Outpatient HUNDL, KAILEY GRANGER [id number] [facility] 2023-02-10 00:00:00 2023-02-10 00:00:00 Outpatient HUNDL, KAILEY GRANGER [id number] [facility] 2023-02-05 00:00:00 2023-02-05 00:00:00 Outpatient HUNDL, KAILEY GRANGER [id number] [facility] 2023-01-14 00:00:00 2023-01-14 00:00:00 Outpatient HUNDL, KAILEY GRANGER [id number] [facility] 2022-12-30 00:00:00 2022-12-30 00:00:00 Outpatient HUNDL, KAILEY GRANGER [id number] [facility] 2022-12-18 00:00:00 2022-12-18 00:00:00 Outpatient HUNDL, KAILEY GRANGER [id number] [facility] 2022-12-13 00:00:00 2022-12-13 00:00:00 Outpatient HUNDL, KAILEY GRANGER [id number] [facility] 2022-12-08 00:00:00 2022-12-08 00:00:00 Outpatient HUNDL, KAILEY GRANGER [id number] [facility] 2022-11-26 00:00:00 2022-11-26 00:00:00 Outpatient HUNDL, KAILEY GRANGER [id number] [facility] 2022-11-24 09:45:00 2022-11-24 09:45:00 Outpatient YULIET, BIN GRANGER [id number] [facility] 2022-11-24 00:00:00 2022-11-24 00:00:00 Outpatient HUNDL, KAILEY GRANGER [id number] [facility] 2022-11-12 00:00:00 2022-11-12 00:00:00 Outpatient HUNDL, KAILEY GRANGER [id number] [facility] 2022-10-26 00:00:00 2022-10-26 00:00:00 Outpatient HUNDL, KAILEY GRANGER [id number] Anayeli Seybold 2022-10-14 00:00:00 2022-10-14 00:00:00 Outpatient HUNDL, KAILEY GRANGER [id number] Anayeli Seybold 2022-10-06 00:00:00 2022-10-06 00:00:00 Outpatient HUNDL, KAILEY GRANGER [id number] Anayeli Seybold 2022-09-30 00:00:00 2022-09-30 00:00:00 Outpatient MD ANAYELI MARTINEZ [id number] Anayeli Seybold 2022-09-29 00:00:00 2022-09-29 00:00:00 Outpatient HUNDL, KAILEY GRANGER [id number] Anayeli Seybold 2022-09-29 00:00:00 2022-09-29 00:00:00 Outpatient HUNDL, KAILEY GRANGER [id number] Anayeli Seybold 2022-09-26 16:45:00 2022-09-26 16:45:00 Outpatient LAB90 ANAYELI GRANGER [id number] Anayeli Seybold 2022-09-26 15:30:00 2022-09-26 15:30:00 Outpatient HUNDL, KAILEY GRANGER [id number] Anayeli Seybold 2022-09-19 00:00:00 2022-09-19 00:00:00 Outpatient HUNDL, KAILEY GRANGER [id number] Anayeli Seybold 2022-09-18 00:00:00 2022-09-18 00:00:00 Outpatient HUNDL, KAILEY GRANGER [id number] Anayeli Seybold 2022-09-17 00:00:00 2022-09-17 00:00:00 Outpatient HUNDL, KAILEY GRANGER [id number] Anayeli Seybold 2022-08-06 00:00:00 2022-08-06 00:00:00 Outpatient HUNDL, KAILEY GRANGER [id number] Anayeli Seybold 2022-07-15 00:00:00 2022-07-15 00:00:00 Outpatient HUNDL, KAILEY GRANGER [id number] [facility] 2022-07-01 00:00:00 2022-07-01 00:00:00 Outpatient ILYA MUJICA ANAYELI GRANGER [id number] Anayeli Collado 2022-07-01 00:00:00 2022-07-01 00:00:00 Outpatient CHEYANNE KAILEY GRANGER [id number] Anayeli Negronelaine 2022-06-30 00:00:00 2022-06-30 00:00:00 Outpatient CHEYANNE KAILEY GRANGER [id number] Anayeli [facility] 2022-06-27 00:00:00 2022-06-27 00:00:00 Outpatient CHEYANNE KAILEY GRANGER [id number] Anayeli [facility] 2022-05-08 00:00:00 2022-05-08 00:00:00 Outpatient CHEYANNE KAILEY GRANGER [id number] Anayeli [facility] 2022-05-05 00:00:00 2022-05-05 00:00:00 Outpatient CHEYANNE KAILEY GRANGER [id number] [facility] 2022-03-27 00:00:00 2022-03-27 00:00:00 Outpatient CHEYANNE KAILEY GRANGER [id number] An[facility]eli [facility] 2022-03-27 00:00:00 2022-03-27 00:00:00 Outpatient MD ANAYELI MARTINEZ [id number] Anayeli [facility] 2022-03-21 00:00:00 2022-03-21 00:00:00 Outpatient MD ANAYELI MARTINEZ [id number] Anayeli [facility] 2022-03-04 00:00:00 2022-03-04 00:00:00 Outpatient CHEYANNE KAILEY GRANGER [id number] Anayeli [facility] 2022-03-03 10:15:00 2022-03-03 10:15:00 Telemedici lizzy HORNEKAILEY Kye Wiggins [id number] [facility] 2022-03-03 00:00:00 2022-03-03 00:00:00 Outpatient KAILEY HORNE ANAYELI GRANGER [id number] Anayeli [facility] 2022-03-02 00:00:00 2022-03-02 00:00:00 Outpatient SUHA HORNEAntonio GRANGER [id number] Anayeli [facility] 2022-02-07 00:00:00 2022-02-07 00:00:00 Outpatient CHEYANNE KAILEY GRANGER [id number] Anayeli [facility] 2022-01-17 00:00:00 2022-01-17 00:00:00 Outpatient MD ANAYELI MARTINEZ [id number] Anayeli [facility] 2022-01-17 00:00:00 2022-01-17 00:00:00 Outpatient CHEYANNE KAILEY GRANGER [id number] Anayeli [facility] 2022-01-16 15:30:00 2022-01-16 15:30:00 Outpatient CHILOALFREDO WALKERMAGO GRANGER [id number] [facility] 2022-01-16 10:15:00 2022-01-16 10:15:00 Outpatient CAMRYNLUCIAN ANAYELI GRANGER [id number] Anayeli [facility] 2022-01-15 11:00:00 2022-01-15 11:00:00 Telemedici lizzy KAILEY HORNE [id number] Anayeli [facility] 2022-01-15 00:00:00 2022-01-15 00:00:00 Outpatient CHEYANNE KAILEY GRANGER [id number] Anayeli [facility] 2022-01-15 00:00:00 2022-01-15 00:00:00 Outpatient MD ANAYELI MARTINEZ [id number] [facility] 2022-01-06 00:00:00 2022-01-06 00:00:00 Outpatient MD ANAYELI MARTINEZ [id number] [facility] 2022-01-01 00:00:2022-01-01 00:00:00 Outpatient CHEYANNE KAILEY GRANGER [id number] [facility] 2022-01-01 00:00:00 2022-01-01 00:00:00 Outpatient PEDROL, KAILEY GRANGER [id number] [facility] 2021-12-24 00:00:00 2021-12-24 00:00:00 Outpatient PEDROL, KAILEY GRANGER [id number] [facility] 2021-12-20 00:00:00 2021-12-20 00:00:00 Outpatient HUNDL, KAILEY GRANGER [id number] [facility] 2021-12-18 00:00:00 2021-12-18 00:00:00 Outpatient PEDROL, KAILEY GRANGER [id number] [facility] 2021-12-03 00:00:00 2021-12-03 00:00:00 Outpatient HUNDL, KAILEY GRANGER [id number] [facility] 2021-12-02 00:00:00 2021-12-02 00:00:00 Outpatient CHEYANNE, KAILEY GRANGER [id number] [facility] 2021-12-02 00:00:00 2021-12-02 00:00:00 Outpatient CHEYANNE, KAILEY GRANGER [id number] [facility] 2021-11-14 08:00:00 2021-11-14 08:00:00 Outpatient SONIDO WOO [id number] [facility] 2021-11-05 13:00:00 2021-11-05 13:30:00 Telemedici sc Kailey Horne Jackson [id number] [facility] 2021-11-03 00:00:00 2021-11-03 00:00:00 Outpatient CHEYANNE KAILEY GRANGER [id number] [facility] 2021-10-30 00:00:00 2021-10-30 00:00:00 Outpatient CHEYANNE KAILEY GRANGER [id number] [facility] 2021-10-28 00:00:00 2021-10-28 00:00:00 Outpatient KAILEY HORNE ANAYELI GRANGER [id number] [facility] 2021-10-14 00:00:00 2021-10-14 00:00:00 Outpatient TEODORO ROJO ANAYELI GRANGER [id number] [facility] 2021-10-14 00:00:00 2021-10-14 00:00:00 Outpatient KAILEY HORNE ANAYELI GRANGER [id number] [facility] 2021-10-11 00:00:00 2021-10-11 00:00:00 Outpatient CHEYANNE KAILEY GRANGER [id number] Anayeli [facility] 2021-10-10 00:00:00 2021-10-10 00:00:00 Outpatient CHEYANNE KAILEY GRANGER [id number] Anayeli [facility] 2021-10-08 00:00:00 2021-10-08 00:00:00 Outpatient TEODORO ROJO ANAYELI GRANGER [id number] Anayeli [facility] 2021-10-05 00:00:00 2021-10-05 00:00:00 Outpatient CHEYANNE KAILEY ANAYELI GRANGER [id number] Anayeli [facility] 2021-10-04 12:15:00 2021-10-04 12:15:00 Outpatient MEME ANAYELI GRANGER [id number] [facility] 2021-10-04 00:00:00 2021-10-04 00:00:00 Outpatient DARRELTEODORO MCKEON ANAYELI GRANGER [id number] [facility] 2021-10-01 00:00:00 2021-10-01 00:00:00 Orders Only Doctor Unassigned, Loco [facility] [id number] [facility] 2021-09-30 00:00:00 2021-09-30 00:00:00 Outpatient CHEYANNE KAILEY ANAYELI GRANGER [id number] [facility] 2021-09-30 00:00:00 2021-09-30 00:00:00 Outpatient DARREL TEODORO GRANGER [id number] Anayeli elaine 2021-09-27 16:30:00 2021-09-27 16:30:00 Office Visit CHEYANNE KAILEYAntonio Wiggins [id number] [id number] [id number] Anayeli [facility] 2021-09-24 00:00:00 2021-09-24 00:00:00 Outpatient TEODORO ROJO [id number] Anayeli formerly [facility] 2021-09-24 00:00:00 2021-09-24 00:00:00 Transition of Care Cleopatra Chandler 1.2.840.114 350.1.13.10 [id number] [id number] [facility] 2021-09-21 00:07:00 2021-09-23 19:16:00 Hospital Encounter Rony Segovia, Tasha Lozano [facility] 1.2.840.114 350.1.13.10 4.2.7.2.686 [id number] [facility] 2021-09-21 00:07:00 2021-09-23 19:16:00 Inpatient U TASHA MONTEZ [facility] [id number] [facility] 2021-09-23 00:00:00 2021-09-23 00:00:00 Outpatient TEODORO ROJO [id number] Anayeli [facility] 2021-09-20 00:00:00 2021-09-20 00:00:00 Outpatient TEODORO ROJO [id number] Anayeli [facility] 2021-09-18 00:00:00 2021-09-18 00:00:00 Outpatient KAILEY HORNE [id number] Anayeli [facility] 2021-09-18 00:00:00 2021-09-18 00:00:00 Outpatient KAILEY HORNE ANAYELI [id number] Anayeli Collado 2021-09-14 00:00:00 2021-09-14 00:00:00 Outpatient KAILEY HORNE ANAYELI [id number] Anayeli Negronelaine 2021-09-14 00:00:00 2021-09-14 00:00:00 Outpatient KAILEY HORNE ANAYELI GRANGER [id number] Anayeli Collado 2021-09-10 00:00:00 2021-09-10 00:00:00 Outpatient TEODORO ROJO ANAYELI GRANGER [id number] Anayeli Collado 2021-09-10 00:00:00 2021-09-10 00:00:00 Outpatient KAILEY HORNE ANAYELI GRANGER [id number] Anayeli [facility]gronformerly [facility] 2021-09-09 10:30:00 2021-09-09 10:30:00 Outpatient MEME ANAYELI GRANGER [id number] Anayeli [facility]gronformerly [facility] 2021-09-09 08:36:14 2021-09-09 09:06:14 Office Visit Kailey Horne 1.2.840.114 350.1.13.13 [id number] [id number] Anayeli Collado 2021-09-06 16:30:00 2021-09-06 16:30:00 Outpatient TEODORO ROJO ANAYELI GRANGER [id number] Anayeli [facility] 2021-09-06 16:00:00 2021-09-06 16:00:00 Outpatient KAILEY HORNE ANAYELI [id number] Anayeli [facility]onformerly [facility] 2021-08-22 00:00:00 2021-08-22 00:00:00 Outpatient KAILEY HORNE ANAYELI [id number] [facility] 2021-08-21 09:23:51 2021-08-21 09:53:51 Office Visit Kailey Horne 1.2.840.114 350.1.13.13 [id number] [id number] Anayeli Negrnoformerly [facility] 2021-07-26 16:30:00 2021-07-26 16:30:00 Outpatient KAILEY HORNE ANAYELI ANAYELI [id number] Anayeli Collado 2021-07-26 15:36:47 2021-07-26 16:06:47 Office Visit Teodoro Rojo 1.2.840.114 350.1.13.13 [id number] [id number] Anayeli Negronelaine 2021-06-21 16:00:00 2021-06-21 16:00:00 Outpatient TEODORO ROJO ANAYELI GRANGER [id number] Anayeli Collado 2021-06-05 11:30:00 2021-06-05 11:30:00 Outpatient TEODORO ROJO ANAYELI GRANGER [id number] Anayeli [facility]gronformerly [facility] 2021-01-30 13:30:00 2021-01-30 13:30:00 Outpatient R [facility] [id number] [facility] 2020-10-17 14:46:31 2020-10-17 15:01:31 Blockmason Visit 2, [facility] 1.2.840.114 350.1.13.10 4.2.7.2.686 [id number] [facility] 2020-10-17 13:30:00 2020-10-17 14:37:02 Outpatient R [facility] [id number] [facility] 2020-10-17 13:09:10 2020-10-17 14:37:02 Office Visit [facility] Building [id number] 350.1.13.10 4.2.7.2.686 [id number] [facility] 2020-10-17 00:00:00 2020-10-17 00:00:00 Letter (Out) [facility] 1.2.840.114 350.1.13.10 4.2.7.2.686 [id number] [facility] 2020-10-17 00:00:00 2020-10-17 00:00:00 Orders Only Doctor Unassigned, [facility] 1.2.840.114 350.1.13.10 4.2.7.2.686 [id number] [facility] Results Test Description Test Time Test Comments Results Result Co mments Source [facility] [id number] 20:27:09 LEUKOCYTOSIS WITH ABSOLUTE NEUTROPHILIA AND BASOPHILIA. RED BLOOD CELLS ARE UNREMARKABLE. PLATELETSARE UNREMARKABLE.[facility] GLUCOSE (AUTOMATED)2021-09-23 17:33:07* Test Item Value Reference Range Interpretation Comme nts POCT GLU (test code = 0301053462) 170 mg/dL 70-110 H Lab Interpretation (test cod e = 42334-2) [facility]normal [facility] Drip[facility]2021-09-23 16:54:34* Test Item Value Reference Range Interpretation Comme nts APTT Patient (test code = 3173-2) See_Comment H [Automated messa ge] The system which generated this result transmitted reference range: 26 - 36 Seconds. The reference range was not used to interpret this result as normal/abnormal. Lab Interpretation (test code = 54013-0) Abnormal [facility] GLUCOSE (AUTOMATED)2021-09-23 14:04:08* Test Item Value Reference Range Interpretation Comme nts POCT GLU (test code = 9072017083) 166 mg/dL 70-110 H Lab Interpretation (test cod e = 89326-4) [facility]normal [facility] WITHOUT [id number] 11:42:34* Test Item Value Reference Range Interpretation Comme nts WBC (test code = 6690-2) See_Comment [Automated messa ge] The system which generated this result transmitted reference range: 4.30 - 11.10 10*3/?L. The reference range was not used to interpret this result as normal/abnormal. RBC (test code = 789-8) See_Comment [Automated messa ge] The system which generated this result transmitted reference range: 3.93 - 5.25 10*6/?L. The reference range was not used to interpret this result as normal/abnormal. HGB (test code = 718-7) 14.4 g/dL 11.6-15.0 HCT (test code = 4544-3) 44.8 % 35.7-45.2 MCH (test code = 785-6) 29.6 pg 25.9-32.8 MCV (test code = 787-2) 92.2 fL 80.6-95.5 MCHC (test code = 786-4) 32.1 g/dL 31.6-35.1 PLT (test code = 777-3) See_Comment [Automated messa ge] The system which generated this result transmitted reference range: 166 - 358 10*3/?L. The reference range was not used to interpret this result as normal/abnormal. MPV (test code = 77330-9) 11.3 fL 9.5-12.9 RDW-CV (test code = 788-0) 13.5 % 12.0-15.5 RDW-SD (test code = 97288-9) 45.6 fL 39.0-49.9 NRBC x10^3 (test code = 8809481933) <0.01 See_Comment [Automated me ssage] The system which generated this result transmitted reference range: 10*3/?L. The reference range was not used to interpret this result as normal/abnormal. NRBC/100 WBC (test code = 5637031230) See_Comment [Automated me ssage] The system which generated this result transmitted reference range: 0.0 - 10.0 /100 WBCs. The reference range was not used to interpret this result as normal/abnormal. IPF % (test code = 6630549885) [facility] Drip[facility]2021-09-23 04:41:27* Test Item Value Reference Range Interpretation Comme nts APTT Patient (test code = 3173-2) See_Comment H [Automated messa ge] The system which generated this result transmitted reference range: 26 - 36 Seconds. The reference range was not used to interpret this result as normal/abnormal. Lab Interpretation (test code = 51707-8) [facility]2021-09-23 03:05:58* Test Item Value Reference Range Interpretation Comme nts POCT GLU (test code = 2077779544) 155 mg/dL 70-110 H Notified Provide r Lab Interpretation (test code = 88841-7) Abnormal [facility] GLUCOSE (AUTOMATED)2021-09-22 23:08:13* Test Item Value Reference Range Interpretation Comme nts POCT GLU (test code = 3781522527) 129 mg/dL 70-110 H Lab Interpretation (test cod e = 31302-2) Abnormal [facility] GLUCOSE (AUTOMATED)2021-09-22 18:57:53* Test Item Value Reference Range Interpretation Comme nts POCT GLU (test code = 9245335877) 178 mg/dL 70-110 H Lab Interpretation (test cod e = 02610-2) [facility]normal [facility] use with Heparin Drip)2021-09-22 16:19:08* Test Item Value Reference Range Interpretation Comme nts APTT Patient (test code = 3173-2) See_Comment H [Automated messa ge] The system which generated this result transmitted reference range: 26 - 36 Seconds. The reference range was not used to interpret this result as normal/abnormal. Lab Interpretation (test code = 47652-4) Abnormal [facility] GLUCOSE (AUTOMATED)2021-09-22 14:00:28* Test Item Value Reference Range Interpretation Comme nts POCT GLU (test code = 0813896072) 165 mg/dL 70-110 H Lab Interpretation (test cod e = 24561-5) Abnormal [facility]MINAL [id number] 11:41:31* Test Item Value Reference Range Interpretation Comme nts NT-proBNP (test code = 0129352977) 711 pg/mL See_Comment H [Automated message] The system which generated this result transmitted reference range: <=125. The reference range was not used to interpret this result as normal/abnormal. SUSANNE (test code = SUSANNE) Biotin has been reported to cause a negative bias, interpret results relative to patient's use of biotin. Lab Interpretation (test code = 01293-2) Abnormal [facility] GLUCOSE (AUTOMATED)2021-09-22 06:50:04* Test Item Value Reference Range Interpretation Comme nts POCT GLU (test code = 8244157970) 148 mg/dL 70-110 H Lab Interpretation (test cod e = 56761-0) [facility]normal [facility] use with Heparin Drip)2021-09-22 04:03:40* Test Item Value Reference Range Interpretation Comme nts APTT Patient (test code = 3173-2) See_Comment H [Automated [employer] ge] The system which generated this result transmitted reference range: 26 - 36 Seconds. The reference range was not used to interpret this result as normal/abnormal. Lab Interpretation (test code = 12657-5) Abnormal [facility] GLUCOSE (AUTOMATED)2021-09-22 02:30:44* Test Item Value Reference Range Interpretation Comme [facility] POCT GLU (test code = 4545226785) 202 mg/dL 70-110 H Lab Interpretation (test cod e = 65397-3) Abnormal [facility] GLUCOSE (AUTOMATED)2021-09-21 23:43:18* Test Item Value Reference Range Interpretation Comme [facility] POCT GLU (test code = 2437311114) 143 mg/dL 70-110 H Lab Interpretation (test cod e = 84574-4) Abnormal [facility]TROP[facility] [id number] 21:01:53* Test Item Value Reference Range Interpretation Comments TROPONIN I (test code = 3184347044) 0.027 ng/mL See_Comment [Automated message] The system which generated this result transmitted reference range: <=0.034. The reference range was not used to interpret this result as normal/abnormal. SUSANNE (test code = SUSANNE) Reference (Normal) Range (defined by the 99th percentile reference [...] to patient's use of biotin. Lab Interpretation (test code = 66632-2) Normal [facility] use with Heparin Drip)2021-09-21 20:48:52* Test Item Value Reference Range Interpretation Comme nts APTT Patient (test code = 3173-2) See_Comment H [Automated messa [employer]] The system which generated this result transmitted reference range: 26 - 36 Seconds. The reference range was not used to interpret this result as normal/abnormal. Lab Interpretation (test code = 76557-3) Abnormal [facility] GLUCOSE (AUTOMATED)2021-09-21 17:55:13* Test Item Value Reference Range Interpretation Comme nts POCT GLU (test code = 9663451173) 161 mg/dL 70-110 H Lab Interpretation (test cod e = 96578-7) Abnormal [facility] GLUCOSE (AUTOMATED)2021-09-21 13:52:34* Test Item Value Reference Range Interpretation Comme [facility] POCT GLU (test code = 4780417831) 140 mg/dL 70-110 H Lab Interpretation (test cod e = 77507-1) Abnormal [facility]TROP[facility] [id number] 13:09:49* Test Item Value Reference Range Interpretation Comments TROPONIN I (test code = 6852002661) 0.040 ng/mL See_Comment H [Automated message] The system which generated this result transmitted reference range: <=0.034. The reference range was not used to interpret this result as normal/abnormal. SUSANNE (test code = SUSANNE) Reference (Normal) Range (defined by the 99th percentile reference [...] to patient's use of biotin. Lab Interpretation (test code = 98009-2) [facility]normal [facility] use with Heparin Drip)2021-09-21 13:00:32* Test Item Value Reference Range Interpretation Comme nts APTT Patient (test code = 3173-2) See_Comment HH [Automated messa [employer]] The system which generated this result transmitted reference range: 26 - 36 Seconds. The reference range was not used to interpret this result as normal/abnormal. Lab Interpretation (test code = 11092-7) Abnormal [facility] HospitalGLYCOSYLATED HEMOGLOBIN (A1C)2021-09-21 11:29:49* Test Item Value Reference Range Interpretation Comme nts HGB A1C (test code = 4548-4) 8.7 % 4.0-5.7 H SUSANNE (test code = SUSANNE) Reference RangesNormal: <5.7%Prediabetes: 5.7 - 6.4%Diabetes: > 6.5% Lab Interpretation (test code = 51730-1) Abnormal [facility]N-[facility]MINAL [id number] 08:14:07* Test Item Value Reference Range Interpretation Comme nts NT-proBNP (test code = 4112460649) 1270 pg/mL See_Comment H [Automated message] The system which generated this result transmitted reference range: <=125. The reference range was not used to interpret this result as normal/abnormal. SUSANNE (test code = SUSANNE) Biotin has been reported to cause a negative bias, interpret results relative to patient's use of biotin. Lab Interpretation (test code = 60784-1) Abnormal [facility] HospitalHEPATIC FUNCTION PANEL (47279) (ALB,T.PRO,BILI T,BU/BC,ALT,AST,ALK PHOS)2021-09-21 07:39:04* Test Item Value Reference Range Interpretation Comme nts TOTAL BILI (test code = 6001645816) 0.9 mg/dL 0.1-1.1 BILI UNCON (test code = 9157858606) 0.6 mg/dL 0.1-1.1 BILI CONJ (test code = 2708575226) 0.0 mg/dL 0.0-0.3 T PROTEIN (test code = 5744062034) 6.5 g/dL 6.3-8.2 ALBUMIN (test code = 5158517909) 3.5 g/dL 3.5-5.0 ALK PHOS (test code = 2955359972) 69 U/L 34-122 ALTv (test code = 1742-6) 27 U/L 5-35 AST(SGOT) (test code = 0685892690) 28 U/L 13-40 Lab Interpretation (test cod e = 02741-3) Normal [facility] HospitalMagnesium [id number] 07:39:04* Test Item Value Reference Range Interpretation Comme nts MAGNESIUM (test code = 4511214261) 1.8 mg/dL 1.7-2.4 Lab Interpretation (test cod e = 75153-8) Normal [facility] HospitalPhosphorus [id number] 07:39:04* Test Item Value Reference Range Interpretation Comme nts PHOSPHORUS (test code = 1053476015) 3.9 mg/dL 2.5-5.0 Lab Interpretation (test cod e = 45556-2) Normal [facility] (NA, K, CL, CO2, GLUCOSE, BUN, CREATININE, CA)2021-09-21 07:39:03* Test Item Value Reference Range Interpretation Comme nts NA (test code = 6252825535) 138 mmol/L 135-145 K (test code = 4428826855) 3.5 mmol/L 3.5-5.0 CL (test code = 9172585962) 104 mmol/L 98-108 CO2 TOTAL (test code = 4203225965) 25 mmol/L 23-31 AGAP (test code = 5276852880) 2-16 BUN (test code = 8639528827) 9 mg/dL 7-23 GLUCOSE (test code = 2579261827) 150 mg/dL 70-110 H CREATININE (test code = 7497664423) 0.74 mg/dL 0.50-1.04 CALCIUM (test code = 8679107451) 8.4 mg/dL 8.6-10.6 L eGFR (test code = 9077724995) mL/min/1.73m2 SUSANNE (test code = SUSANNE) Association of [...] or abnormalities in imaging tests). Lab Interpretation (test code = 97928-3) Abnormal [facility] HospitalProthrombin Time (PT) / [id number] 07:20:00 * Test Item Value Reference Range Interpretation Comme [facility] PROTIME PATIENT (test code = 5964-2) See_Comment H [[employer]] The system which generated this result transmitted reference range: 10.1 - 12.6 Seconds. The reference range was not used to interpret this result as normal/abnormal. INR (test code = 6301-6) Normal INR <1.1; Warfarin Therapeutic range 2.0 to 3.0 or 2.5 to 3.5, depending upon the indications. Lab Interpretation (test code = 04446-5) Abnormal [facility]TT2021-11-13 07:20:00* Test Item Value Reference Range Interpretation Comme [facility] APTT Patient (test code = 3173-2) See_Comment H [[employer]] The system which generated this result transmitted reference range: 26 - 36 Seconds. The reference range was not used to interpret this result as normal/abnormal. Lab Interpretation (test code = 38009-6) Abnormal [facility] HospitalCBC with [id number] 07:13:36* Test Item Value Reference Range Interpretation Comme [facility] WBC (test code = 6690-2) See_Comment H [Automated messa ge] The system which generated this result transmitted reference range: 4.30 - 11.10 10*3/?L. The reference range was not used to interpret this result as normal/abnormal. RBC (test code = 789-8) See_Comment [Automated messa ge] The system which generated this result transmitted reference range: 3.93 - 5.25 10*6/?L. The reference range was not used to interpret this result as normal/abnormal. HGB (test code = 718-7) 15.0 g/dL 11.6-15.0 HCT (test code = 4544-3) 45.2 % 35.7-45.2 MCV (test code = 787-2) 89.5 fL 80.6-95.5 MCH (test code = 785-6) 29.7 pg 25.9-32.8 MCHC (test code = 786-4) 33.2 g/dL 31.6-35.1 RDW-SD (test code = 22735-8) 44.4 fL 39.0-49.9 RDW-CV (test code = 788-0) 13.5 % 12.0-15.5 PLT (test code = 777-3) See_Comment [Automated [employer] ge] The system which generated this result transmitted reference range: 166 - 358 10*3/?L. The reference range was not used to interpret this result as normal/abnormal. MPV (test code = 89320-8) 11.1 fL 9.5-12.9 NRBC/100 WBC (test code = 2754993450) See_Comment [Automated [employer] ssage] The system which generated this result transmitted reference range: 0.0 - 10.0 /100 WBCs. The reference range was not used to interpret this result as normal/abnormal. NRBC x10^3 (test code = 5996462987) <0.01 See_Comment [Automated messa ge] The system which generated this result transmitted reference range: 10*3/?L. The reference range was not used to interpret this result as normal/abnormal. GRAN MAT (NEUT) % (test code = 770-8) 64.9 % IMM GRAN % (test code = 1555292455) 0.50 % LYMPH % (test code = 736-9) 25.4 % MONO % (test code = 5905-5) 7.5 % EOS % (test code = 713-8) 1.0 % BASO % (test code = 706-2) 0.7 % GRAN MAT x10^3(ANC) (test code = 5702199980) 7.61 10*3/uL 1.88-7.09 H IMM GRAN x10^3 (test code = 8566778555) 0.06 10*3/uL 0.00-0.06 LYMPH x10^3 (test code = 731-0) 2.98 10*3/uL 1.32-3.29 MONO x10^3 (test code = 742-7) 0.88 10*3/uL 0.33-0.92 EOS x10^3 (test code = 711-2) 0.12 10*3/uL 0.03-0.39 BASO x10^3 (test code = 704-7) 0.08 10*3/uL 0.01-0.07 H Lab Interpretation (test code = 08378-6) Abnormal [facility] GLUCOSE (AUTOMATED)2021-09-21 06:59:25* Test Item Value Reference Range Interpretation Comme nts POCT GLU (test code = 8712988147) 138 mg/dL 70-110 H Notified Provide r Lab Interpretation (test code = 34857-9) Abnormal [facility] HEMOGLOBIN A1C [id number] 19:40:00* Test Item Value Reference Range Interpretation Comme nts POCT HBA1C (test code = 4548-4) 8.8 % 4-6 A Lab Interpretation (test cod e = 16815-0) Abnormal [facility] HEMOGLOBIN A1C [id number] 19:40:00* Test Item Value Reference Range Interpretation Comme nts POCT HBA1C (test code = 4548-4) 8.8 % 4-6 A Lab Interpretation (test cod e = 27379-1) Abnormal [facility] Notes Date/Time Note Provider Source 2024-09-23 14:07:11 Anatoliy Flores is a 49 year old female is in today for a physical and biometric form completion, also refill of Mounjaro to [place] 2024-02-29 09:51:35 Chief Complaint Patient presents with ER F/U ER follow up for Left leg pain and swelling. All test in ER are negative Erica Chase LVN [facility] 2023-11-19 07:58:32 Chief Complaint Patient presents with Cough Dry cough, wheezing, sinus congestion, diarrhea for 1 month. Negative COVID test. She has taken an inhaler and cough med via telemedicine. Chery Sesay MA II [facility]"
[2025-02-16] MEDS ORDERED: ASPIRIN 81 MG CHEWABLE TABLET ONE (14:48)
[2025-02-16 15:19] LABS: Absolute Basophils 0.1 K/uL (0-0.5); Absolute Eosinophils 0.4 K/uL (0-0.5); Absolute Lymphocytes (CBC) 2.8 K/uL (0.7-4.9); Absolute Monocytes 0.7 K/uL (0.1-1.3); Absolute Neutrophil 8.3 K/uL (1.8-8.0); Basophils % 0.9 % (0-1.3); Eosinophils % 3.1 % (0-4.4); Hematocrit 45.5 % (36.0-45.0); Hemoglobin 15.6 g/dL (12.0-15.0); Lymphocytes % 22.6 % (15.3-44.8); MCH 29.4 pg (27.0-35.0); MCHC 34.2 g/dL (32.0-36.0); MCV 86.1 fL (80-100); MPV 8.9 fL (7.6-11.3); Monocytes % 5.9 % (3.3-12.3); Neutrophils % 67.5 % (41.7-73.7); Nucleated Red Blood Cells % 0.1 % (0-0); Platelets 337 thou/uL (152-406); RBC Red Blood Cell Count 5.29 M/uL (3.86-4.86); Red Cell Distribution Width 14.1 % (12.1-15.2)
--- NOTE | 2025-02-16 15:23 | RAD REPORT ---
EXAMINATION: ONE VIEW CHEST XR CLINICAL INDICATION: Female, 49 years old.,CHEST PAIN TECHNIQUE: Frontal chest projection is submitted. Examination is limited by patient positioning and t echnique. COMPARISON: 04/19/2015. FINDINGS: The lungs are well inflated and clear. No pneumothorax or sizable effusion. The heart is normal in s ize. Mediastinal contours are unremarkable. IMPRESSION: No acute intrathoracic abnormalities.
[2025-02-16 15:30] LABS: PT Prothrombin Time 11.8 SECONDS (10-13.0); Protime INR 1.04
[2025-02-16 15:37] LABS: ALT/SGPT 23 U/L (13-56); AST/SGOT 11 U/L (15-37); Albumin 3.2 g/dL (3.4-5.0); Albumin/Globulin Ratio 0.7 (1.1-1.8); Alkaline Phosphatase 65 U/L (45-117); BUN Blood Urea Nitrogen 14 mg/dL (7-18); Bicarbonate 30 mEq/L (21-32); Bilirubin Total 0.4 mg/dL (0.2-1.0); Globulin 4.3 g/dL (2.3-3.5); Glomerular Filtration Rate 65 ml/min (=/>90); Glucose Level 204 mg/dL (74-106); Lipase 204 U/L (13-75); Magnesium 1.8 mg/dL (1.6-2.4); NT PRO-BNP 27 pg/mL (<125); Protein, Total 7.5 g/dL (6.4-8.2); Sodium Level 137 mEq/L (136-145); Troponin High Sensitivity 5.4 pg/mL (<58.9)
[2025-02-16 15:38] LABS: Bilirubin Direct < 0.2 mg/dL (0-0.2); Bilirubin Indirect, Calculated 0.2 mg/dL (0.2-0.8)
[2025-02-16] MEDS ORDERED: ONDANSETRON 4 MG/2 ML VIAL ONE (16:08)
[2025-02-16] MEDS ORDERED: MORPHINE 4 MG/ML SYR ONE ×2 (16:08→18:38)
--- NOTE | 2025-02-16 17:44 | RAD REPORT ---
EXAM: CT Head Brain Wo Cont HISTORY: DIZZINESS COMPARISON: None TECHNIQUE: Multiple contiguous axial images were obtained for a CT of the brain without contrast. Sag ittal and coronal reformats were performed. One or more of the following dose reduction techniques were used: Automated exposure control, adjus tment of the mA and kV according to patient size, and iterative reconstruction. Unless otherwise specified, incidental findings do not require dedicated imaging follow-up. FINDINGS: No evidence of hydrocephalus, intracranial hemorrhage, or extra-axial fluid collection. The brain is normal in morphology. The calvarium is intact. Left maxillary sinus mucus retention cyst. Mastoid air cells are essentially clear. IMPRESSION: No evidence of acute intracranial abnormality.
--- NOTE | 2025-02-16 18:08 | RAD REPORT ---
EXAM: CT Chest For Pe Angio TECHNIQUE: CT angiogram of the chest was performed following intravenous contrast administration, inc luding sagittal and coronal as well as maximum intensity projection reformats. One or more of the following dose reduction techniques were used: Automated exposure control, adjustment of the mA and k V according to patient size, and iterative reconstruction. Unless otherwise specified, incidental findings do not require dedicated imaging follow-up. INDICATION: [facility] MAIN CHEST PAIN Bed Name: 18 Y COMPARISON: Chest radiograph of the same day. FINDINGS: LINES/TUBES: None. PULMONARY ARTERIES: Main pulmonary arteries are normal in caliber. No filling defects within the pul monary arteries to suggest pulmonary embolus. LUNGS AND AIRWAYS: The lungs and central airways are normal without focal abnormality. Mild dependent atelectatic changes. PLEURA: No effusion or pneumothorax. HEART AND MEDIASTINUM: The visualized thyroid gland is normal. No mediastinal, hilar, or axillary lym phadenopathy. Heart is unremarkable. No pericardial effusion. SOFT TISSUES AND BONES: No acute osseous abnormality. No significant soft tissue finding. UPPER ABDOMEN: Unremarkable. IMPRESSION: No evidence of acute central pulmonary emboli. No suspicious intrathoracic findings..
--- NOTE | 2025-02-16 19:13 | ER ---
Nurse's Notes [facility] Name: Anatoliy Cardenas Age: 49 yrs Sex: Female : 1975 Arrival Date: 02/16/2025 Time: 13:07 Bed 19 Private MD: Diagnosis: Chest pain, unspecified;Hypokalemia Presentation: 02/16 13:31 Chief complaint: Patient states: BP has been high X 2 days, chest pain, dizziness, SOB iw at work this morning. Coronavirus screen: At this time, the client does not indicate any symptoms associated with coronavirus-19. Ebola Screen: No symptoms or risks identified at this time. Initial Sepsis Screen: Does the patient meet any 2 criteria? HR > 90 bpm. Does the patient have a suspected source of infection? No. Patient's initial sepsis screen is negative. Risk Assessment: Do you want to hurt yourself or someone else? Patient reports no desire to harm self or others. Onset of symptoms was February 16, 2025. 13:31 Method Of Arrival: Ambulatory iw 13:31 Acuity: PATRICIA 3 iw Historical: - Allergies: 13:32 PENICILLINS; iw 13:32 Sulfa (Sulfonamide Antibiotics); iw 13:32 Zyprexa; iw - PMHx: 13:32 Diabetes - NIDDM; Hypertension; PE; iw - PSHx: 13:32 knee; section; iw - Immunization history:: Adult Immunizations not up to date. - Infectious Disease History:: Denies. - Social history:: Smoking status: Patient denies any tobacco usage or history of. Screenin:42 [facility] ED Fall Risk Assessment (Adult) History of falling in the last 3 months, jb4 including since admission No falls in past 3 months (0 pts) Confusion or Disorientation No (0 pts) Intoxicated or Sedated No (0 pts) Impaired Gait No (0 pts) Mobility Assist Device Used No (0 pt) Altered Elimination No (0 pt) Score/Fall Risk Level 0 - 2 = Low Risk Oriented to surroundings, Maintained a safe environment. Abuse screen: Denies threats or abuse. Nutritional screening: No deficits noted. Tuberculosis screening: No symptoms or risk factors identified. Assessment: 15:29 Reassessment: No changes from previously documented assessment. Patient and/or family ll1 updated on plan of care and expected duration. Pain level reassessed. 15:45 General: Appears in no apparent distress. comfortable, Behavior is calm, cooperative, jb4 appropriate for age. Pain: Complains of pain in chest Pain does not radiate. Pain currently is 9 out of 10 on a pain scale. Quality of pain is described as pressure, Pain began 2-3 days ago. Neuro: Level of Consciousness is awake, alert, obeys commands, Oriented to person, place, time, situation. Cardiovascular: Patient's skin is warm and dry. Respiratory: Airway is patent Respiratory effort is even, unlabored, Respiratory pattern is regular, symmetrical. Derm: Skin is intact, Skin is pink, warm \T\ dry. Musculoskeletal: Circulation, motion, and sensation intact. Range of motion: intact in all extremities. 16:01 Reassessment: Patient appears in no apparent distress at this time. Patient and/or jb4 family updated on plan of care and expected duration. Pain level reassessed. Patient is alert, oriented x 3, equal unlabored respirations, skin warm/dry/pink. 17:00 Reassessment: Patient appears in no apparent distress at this time. Patient and/or jb4 family updated on plan of care and expected duration. Pain level reassessed. Patient is alert, oriented x 3, equal unlabored respirations, skin warm/dry/pink. 18:00 Reassessment: Patient appears in no apparent distress at this time. Patient and/or jb4 family updated on plan of care and expected duration. Pain level reassessed. Patient is alert, oriented x 3, equal unlabored respirations, skin warm/dry/pink. 19:00 Reassessment: Patient appears in no apparent distress at this time. Patient and/or jb4 family updated on plan of care and expected duration. Pain level reassessed. Patient is alert, oriented x 3, equal unlabored respirations, skin warm/dry/pink. 20:00 Reassessment: Patient appears in no apparent distress at this time. Patient and/or jb4 family updated on plan of care and expected duration. Pain level reassessed. Patient is alert, oriented x 3, equal unlabored respirations, skin warm/dry/pink. 21:00 Reassessment: Patient appears in no apparent distress at this time. Patient and/or jb4 family updated on plan of care and expected duration. Pain level reassessed. Patient is alert, oriented x 3, equal unlabored respirations, skin warm/dry/pink. 22:00 Reassessment: Patient appears in no apparent distress at this time. Patient and/or jb4 family updated on plan of care and expected duration. Pain level reassessed. Patient is alert, oriented x 3, equal unlabored respirations, skin warm/dry/pink. Vital Signs: 13:31 BP 142 / 90; Pulse 105; Resp 22; Temp 97.6; Pulse Ox 96% on R/A; Weight 145.15 kg; iw Height 5 ft. 6 in. ; Pain 7/10; 16:44 BP 110 / 93; Pulse 99; Resp 16; Pulse Ox 95% ; jb4 17:00 BP 120 / 55 LA Supine (auto/lg); Pulse 88; Resp 16; Pulse Ox 99% on R/A; jb4 17:28 BP 122 / 69 RA Supine (auto/lg); Pulse 88; Resp 16; Pulse Ox 96% on R/A; jb4 21:14 BP 123 / 72; Pulse 88; Resp 16; Pulse Ox 98% on R/A; jb4 13:31 Body Mass Index 51.65 (145.15 kg, 167.64 cm) iw 13:31 Pain Scale: Adult iw ED Course: 13:10 Patient arrived in ED. al6 13:11 Kar Hansen PA is PHCP. cp 13:11 Kar Gonsalves MD is Attending Physician. cp 13:32 Triage completed. iw 13:33 Arm band placed on. iw 13:57 XRAY Chest (1 view) In Process Unspecified. EDMS 14:58 Initial lab(s) drawn, by me, sent to lab. Inserted saline lock: 20 gauge in right kb4 wrist, using aseptic technique. Blood collected. Flushed with 10 mL NS. 15:29 Patient placed in an exam room, on a stretcher. ll1 15:45 Patient has correct armband on for positive identification. Bed in low position. Call jb4 light in reach. Side rails up X 1. Provided Education on: plan of care. Client placed on continuous cardiac and pulse oximetry monitoring. NIBP monitoring applied. child monitor on. Pulse ox on. NIBP on. 15:45 IV is reddened, IV discontinued, intact, bleeding controlled, No redness/swelling at iw site. Pressure dressing applied. 16:42 No provider procedures requiring assistance completed. Inserted saline lock: 18 gauge jb4 in right antecubital area, using aseptic technique. Patient maintains SpO2 saturation greater than 95% on room air. 16:56 CT Head Brain wo Cont In Process Unspecified. EDMS 16:57 CT Chest For PE Angio In Process Unspecified. EDMS 19:12 Prince Santana MD is Hospitalizing Provider. cp 19:12 EKG done, by central processing technician. af3 Administered Medications: 15:58 Drug: Aspirin PO Chewable Tablet 324 mg PO once; 81 mg tablets x 4 Route: PO; iw 22:13 Follow up: Response: No adverse reaction jb4 16:41 Drug: morphine IVP or IV 4 mg IVP once over 4 mins Route: IVP; Infused Over: 4 mins; jb4 Site: right antecubital; 17:15 Follow up: Response: No adverse reaction; Marked relief of symptoms jb4 16:41 Drug: Ondansetron IVP 4 mg IVP once; over 2 minutes Route: IVP; Site: right antecubital;jb4 17:15 Follow up: Response: No adverse reaction; Marked relief of symptoms jb4 18:49 Drug: morphine IVP or IV 4 mg IVP once over 4 mins Route: IVP; Infused Over: 4 mins; jb4 Site: right antecubital; 19:15 Follow up: Response: No adverse reaction; Marked relief of symptoms jb4 Medication: 15:45 VIS not applicable for this client. jb4 Outcome: 19:13 Decision to Hospitalize by Provider. cp 22:12 Admitted to Tele accompanied by tech, via wheelchair, room 428, with chart, jb4 22:12 Condition: stable 22:12 Discharge instructions given to patient, Instructed on the need for admit, Demonstrated understanding of instructions, 22:14 Patient left the ED. jb4 Signatures: Dispatcher [employer] EDMS Елена Jennings RN RN iw Kar Hansen PA PA cp Lionel Mathew RN RN jb4 Benigno Zarate RN RN ll1 Rayne Bonilla af3 Sahra Collins al6 Majo Garrido kb4 Corrections: (The following items were deleted from the chart) 22:12 15:45 Admitted to Tele accompanied by tech, via wheelchair, room 428, with chart, jb4 jb4 22: 15:45 Condition: stable jb4 jb4 : 15:45 Discharge instructions given to patient, Instructed on the need for admit, jb4 Demonstrated understanding of instructions, jb4
--- NOTE | 2025-02-16 19:14 | EDPHYS ---
Physician Documentation [facility] Name: Anatoliy Cardenas Age: 49 yrs Sex: Female : 1975 Arrival Date: 02/16/2025 Time: 13:07 Bed 19 Private MD: ED Physician Kar Gonsalves HPI: 02/16 13:25 This 49 yrs old Female presents to ER via Unassigned with complaints of Chest Pain, cp Back Pain, Dizziness, High Blood Pressure. 13:25 The patient or guardian reports chest pain that is located primarily in the substernal cp area. 13:25 Onset: this morning. The chest pain is described as twisting. Duration: The patient or cp guardian reports a single episode, that is still ongoing, and worsening. 13:25 Associated signs and symptoms: Pertinent positives: back pain, elevated blood pressure. cp Historical: - Allergies: 13:32 PENICILLINS; iw 13:32 Sulfa (Sulfonamide Antibiotics); iw 13:32 Zyprexa; iw - PMHx: 13:32 Diabetes - NIDDM; Hypertension; PE; iw - PSHx: 13:32 knee; section; iw - Immunization history:: Adult Immunizations not up to date. - Infectious Disease History:: Denies. - Social history:: Smoking status: Patient denies any tobacco usage or history of. ROS: 13:30 Cardiovascular: Positive for chest pain, cp 13:30 Respiratory: Positive for shortness of breath, 13:30 Eyes: Negative for injury, pain, redness, and discharge, cp 13:30 Constitutional: Negative for body aches, chills, fever, poor PO intake, 13:30 ENT: Negative for drainage from ear(s), ear pain, sore throat, difficulty swallowing, difficulty handling secretions, 13:30 Abdomen/GI: Negative for abdominal pain, vomiting, diarrhea, constipation, 13:30 Neuro: Negative for altered mental status, dizziness, headache, syncope, weakness, 13:30 All other systems are negative, cp Exam: 13:35 ECG was reviewed by the Attending Physician. cp 13:35 Head/Face: Normocephalic, atraumatic. cp 13:35 Constitutional: The patient appears in no acute distress, alert, awake, non-diaphoretic, non-toxic, well developed, well nourished, obese, uncomfortable, 13:35 Eyes: Periorbital structures: appear normal, Conjunctiva: normal, no exudate, no injection, Sclera: no appreciated abnormality, Lids and lashes: appear normal, bilaterally, 13:35 ENT: External ear(s): are unremarkable, Nose: is normal, Mouth: Lips: moist, Oral mucosa: moist, Posterior pharynx: Airway: no evidence of obstruction, patent, 13:35 Chest/axilla: Inspection: normal, 13:35 Cardiovascular: Rate: tachycardic, Rhythm: regular, Edema: is not appreciated, JVD: is not appreciated, 13:35 Respiratory: the patient does not display signs of respiratory distress, Respirations: normal, no use of accessory muscles, no retractions, labored breathing, is not present, Breath sounds: are clear throughout, no decreased breath sounds, no stridor, no wheezing, 13:35 Abdomen/GI: Inspection: obese 13:35 Neuro: Orientation: to person, place \T\ time. Mentation: is normal, 19:15 ECG was reviewed by the Attending Physician. cp Vital Signs: 13:31 BP 142 / 90; Pulse 105; Resp 22; Temp 97.6; Pulse Ox 96% on R/A; Weight 145.15 kg; iw Height 5 ft. 6 in. ; Pain 7/10; 16:44 BP 110 / 93; Pulse 99; Resp 16; Pulse Ox 95% ; jb4 17:00 BP 120 / 55 LA Supine (auto/lg); Pulse 88; Resp 16; Pulse Ox 99% on R/A; jb4 17:28 BP 122 / 69 RA Supine (auto/lg); Pulse 88; Resp 16; Pulse Ox 96% on R/A; jb4 21:14 BP 123 / 72; Pulse 88; Resp 16; Pulse Ox 98% on R/A; jb4 13:31 Body Mass Index 51.65 (145.15 kg, 167.64 cm) iw 13:31 Pain Scale: Adult iw MDM: 13:24 Medical Screening Exam initiated cp 14:00 Differential diagnosis: abnormal EKG, acute myocardial infarction, costochondritis, cp pancreatitis, peptic ulcer disease, pleurisy, pneumonia, pneumothorax, pulmonary embolus, stable angina, thoracic aortic disection, unstable angina. 19:15 The patient was given aspirin in the Emergency Department. cp 19:15 Data reviewed: vital signs, nurses notes, lab test result(s), EKG, radiologic studies, cp CT scan, plain films, and as a result, I will admit patient. I considered the following discharge prescriptions or medication management in the emergency department Medications were administered in the Emergency Department. See MAR. Independent interpretation of the following test(s) in the Emergency Department EKG: See my EKG interpretation above. Care significantly affected by the following chronic conditions: Diabetes, Hypertension, Obesity. Counseling: I had a detailed discussion with the patient and/or guardian regarding the historical points, exam findings, and any diagnostic results supporting the discharge/admit diagnosis, lab results, radiology results. 19:15 Management of patient was discussed with the following: Hospitalist: DR Santana will cp admit after discussion. 02/16 13:28 Order name: Basic Metabolic Panel; Complete Time: 15:40 cp 02/16 15:40 Interpretation: Normal except: K 3.0; GLUC 204; CRE 1.04; GFR 65. 02/16 13:28 Order name: CBC with Diff; Complete Time: 15:40 02/16 15:42 Interpretation: Normal except: WBC 12.30; RBC 5.29; HGB 15.6; HCT 45.5; NEUT A 8.3. cp 02/16 13:28 Order name: LFT's; Complete Time: 15:40 02/16 15:42 Interpretation: Normal except: AST 11; ALB 3.2; GLOB 4.3; A/G 0.7. 02/16 13:28 Order name: Magnesium; Complete Time: 15:40 cp 02/16 13:28 Order name: NT PRO-BNP; Complete Time: 15:40 cp 02/16 13:28 Order name: PT-INR; Complete Time: 15:40 cp 02/16 13:28 Order name: Troponin HS; Complete Time: 15:40 cp 02/16 13:28 Order name: Lipase; Complete Time: 15:40 cp 02/16 15:43 Interpretation: Abnormal: LIP 204. cp 02/16 13:42 Order name: Urinalysis w/ reflexes cp 02/16 18:33 Order name: Troponin High Sensitivity; Complete Time: 20:02 cp 02/16 20:02 Interpretation: Reviewed. 02/16 19:26 Order name: Basic Metabolic Panel EDMS 02/16 19:26 Order name: Basic Metabolic Panel EDMS 02/16 19:26 Order name: CBC with Automated Diff EDMS 02/16 19:26 Order name: CBC with Automated Diff EDMS 02/16 19:26 Order name: Lipid Profile EDMS 02/16 19:26 Order name: Lipid Profile EDMS 02/16 19:26 Order name: Troponin High Sensitivity EDMS 02/16 19:26 Order name: Troponin High Sensitivity EDMS 02/16 19:26 Order name: Troponin High Sensitivity EDMS 02/16 19:26 Order name: Troponin High Sensitivity EDMS 02/16 19:27 Order name: Hemoglobin A1c EDMS 02/16 13:28 Order name: XRAY Chest (1 view); Complete Time: 15:40 cp 02/16 15:46 Order name: CT Head Brain wo Cont; Complete Time: 18:11 cp 02/16 18:13 Interpretation: Report reviewed. cp 02/16 15:46 Order name: CT Chest For PE Angio; Complete Time: 18:11 cp 02/16 18:30 Interpretation: Report reviewed. cp 02/16 19:26 Order name: Echo with Doppler EDIL 02/16 18:33 Order name: EKG; Complete Time: 18:33 cp 02/16 13:28 Order name: Cardiac monitoring; Complete Time: 16:41 cp 02/16 13:28 Order name: EKG - Nurse/Tech; Complete Time: 13:41 cp 02/16 13:28 Order name: IV Saline Lock; Complete Time: 14:57 cp 02/16 13:28 Order name: Labs collected and sent; Complete Time: 14:57 cp 02/16 13:28 Order name: O2 Per Protocol; Complete Time: 14:57 cp 02/16 13:28 Order name: O2 Sat Monitoring; Complete Time: 14:57 cp 02/16 13:37 Order name: Blood Pressure Recheck: bilateral upper extremity; Complete Time: 17:32 cp 02/16 18:33 Order name: EKG - Nurse/Tech; Complete Time: 19:12 cp EC:35 Rate is 104 beats/min. Rhythm is regular. ID interval is normal. QRS interval is cp prolonged at 102 msec. QT interval is normal. T waves are Inverted in lead aVR. Interpreted by me. Reviewed by me. 19:15 Rate is 82 beats/min. Rhythm is regular. ID interval is normal. QRS interval is cp prolonged at 110 msec. QT interval is normal. T waves are Inverted in lead aVR. Interpreted by me. Reviewed by me. Administered Medications: 15:58 Drug: Aspirin PO Chewable Tablet 324 mg PO once; 81 mg tablets x 4 Route: PO; iw 22:13 Follow up: Response: No adverse reaction jb4 16:41 Drug: morphine IVP or IV 4 mg IVP once over 4 mins Route: IVP; Infused Over: 4 mins; jb4 Site: right antecubital; 17:15 Follow up: Response: No adverse reaction; Marked relief of symptoms jb4 16:41 Drug: Ondansetron IVP 4 mg IVP once; over 2 minutes Route: IVP; Site: right antecubital;jb4 17:15 Follow up: Response: No adverse reaction; Marked relief of symptoms jb4 18:49 Drug: morphine IVP or IV 4 mg IVP once over 4 mins Route: IVP; Infused Over: 4 mins; jb4 Site: right antecubital; 19:15 Follow up: Response: No adverse reaction; Marked relief of symptoms jb4 Disposition Summary: 02/16/25 19:13 Hospitalization Ordered Notes: Hospitalization Status: Observation cp Provider: Prince terry Santana Location: Telemetry/MedSurg (observation) cp Condition: Stable cp Problem: new cp Symptoms: have improved cp Bed/Room Type: Standard Room Assignment: 428(02/16/25 20:48) rv1 Diagnosis - Chest pain, unspecified cp - Hypokalemia cp Forms: - Medication Reconciliation Form cp - SBAR form cp - Leadership Thank You Letter cp Signatures: Dispatcher [employer] Елена Slaughter, RN RN iw Kar Hansen PA PA cp Bryson, James, RN RN jb4 Toya Boyd rv1 Corrections: (The following items were deleted from the chart) 13:28 13:28 BASIC METABOLIC PANEL+C.LAB.BRZ ordered. EDMS EDMS 13:28 13:28 CBC+H.LAB.BRZ ordered. EDMS EDMS 13:28 13:28 HEPATIC FUNCTION+C.LAB.BRZ ordered. EDMS EDMS 13:28 13:28 MAGNESIUM+C.LAB.BRZ ordered. EDMS EDMS 13:28 13:28 PROBNP+C.LAB.BRZ ordered. EDMS EDMS 13: 13:28 PROTIME (+INR)+COAG.LAB.BRZ ordered. EDMS EDMS 13: 13:28 Troponin High Sensitivity+C.LAB.BRZ ordered. EDMS EDMS 13: 13:28 LIPASE+C.LAB.BRZ ordered. EDMS EDMS 13: 13:28 Chest Single View+RAD.RAD.BRZ ordered. EDMS EDMS 13:43 13:43 Urinalysis+U.LAB.BRZ ordered. EDMS EDMS 15:42 15:42 Normal except: AST 11. cp cp 20:48 19:13 cp rv1
[2025-02-16] MEDS ORDERED: NITROGLYCERIN 0.4 MG/TAB SL PRN (19:20)
[2025-02-16] MEDS ORDERED: GLUCAGON 1 MG/VIAL IM PRN (19:25)
[2025-02-16] MEDS ORDERED: D10W 125 ML IV PRN (19:25)
--- NOTE | 2025-02-16 19:27 | P.HP ---
Certification for Inpatient Patient admitted to: Observation With expected LOS: <2 Midnights Practitioner: I am a practitioner with admitting privileges, knowledge of patient current condition, hospital course, and medical plan of care. Services: Services provided to patient in accordance with Admission requirements found in Title 42 Section 412.3 of the Code of Federal Regulations Patient History Date of Service: 02/16/25 Reason for admission: chest pain History of Present Illness: Patient is a 49-year-old female with morbid obesity, hypertension and type 2 diabetes mellitus. She presented to the ER complaining of chest pain radiating to her back. Patient states that she has been hypertensive for the past 2 days with blood pressure reaching as high as 204 mmHg. Patient is accompanied by cousin who is a former EMT director. She does not have any history of coronary artery disease but has extensive family history. Patient has had a pharmacologic Stress test a few years back ago and she was told it was negative. Has never had a coronary angiogram. Here in the ER, she has slight leukocytosis. First troponin is negative. She was normotensive during my evaluation. Allergies Sulfa (Sulfonamide Antibiotics) [Sulfa(Sulfonamide Antibiotics)] Allergy (Mild, Verified 02/23/12 17:06) Hives Penicillins Allergy (Unverified 02/26/23 15:07) thr SULFA (SULFONAMIDES) Allergy (Uncoded 02/26/23 15:07) Anaphylaxis Home Medications: Acetaminophen with Codeine [Acetaminophen-Cod #3 Tablet] 1 tab PO PRN PRN 02/26/23 Albuterol Sulfate [Proair Respiclick] 1 puff IH Q6HR PRN MDD q 02/26/23 Empagliflozin [Jardiance] 10 mg PO DAILY 02/26/23 Escitalopram [Lexapro*] 10 tab PO PRN 02/26/23 Metformin HCl 500 mg PO BID 02/26/23 Norethindrone 0.35 mg PO DAILY 02/26/23 Ondansetron [Ondansetron Odt] 4 mg PO PRN 02/26/23 Tirzepatide [Mounjaro] 15 mg SQ EVERY 7TH DAY 02/26/23 Hydrocodone 10/APAP 325 [[place] 10/325] 1 tab PO Q6H PRN #14 tab 02/27/23 Minocycline HCl 100 mg PO BID #14 tab 04/21/23 rifAMPin [Rifampin] 300 mg PO BID #14 tab 02/27/23 - Past Medical/Surgical History Diabetic: Yes -: Type 2 Diabetes -: Hypertension Psychosocial/ Personal History: Patient is . - Social History Alcohol use: Yes CD- Drugs: No Caffeine use: No Physical Examination - Physical Exam General: Acute distress, Obese HEENT: Atraumatic, Normocephalic Respiratory: Clear to auscultation bilaterally, Normal air movement Cardiovascular: No edema, Normal pulses, Regular rate/rhythm, Normal S1 S2 Neurological: Normal speech - Studies Laboratory Data (last 24 hrs) 02/16/25 02/16/25 02/16/25 14:51 14:51 14:51 WBC 12.30 H Hgb 15.6 H Hct 45.5 H Plt Count 337 PT 11.8 INR 1.04 Sodium 137 Potassium 3.0 L BUN 14 Creatinine 1.04 H Glucose 204 H Magnesium 1.8 Total Bilirubin 0.4 AST 11 L ALT 23 Alkaline Phosphatase 65 Lipase 204 H Assessment and Plan - Problems (Diagnosis) (1) Chest pain Current Visit: Yes Status: Acute (2) Morbid obesity Current Visit: Yes Status: Acute (3) Hypertension Current Visit: No Status: Chronic Qualifiers: (4) Type 2 diabetes mellitus Current Visit: No Status: Chronic Qualifiers: - Plan Assessment Patient is a 49 year old female who is being admitted ACS work up a fter she presented with chest pain. She was severely hypertensive a few days leading to her presentation. Her SBP > 204 mmHg. Her first troponin is negative Chest pain, ACS Hypertension Diabetes mellitus type II Morbid obesity PLAN: Admit under observation with telemetry TREND troponin TTE, lipid panel and HbA1c Cardiology consult in the morning NTG for chest pain, ASA and high intensity statin BP control Patient is full code - Advance Directives Does patient have a Living Will: No Does patient have a Durable POA for Healthcare: No
[2025-02-16] MEDS: ATORVASTATIN 80 MG TAB PO SCH (22:53)
[2025-02-16] MEDS: INSULIN REGULAR (HUMAN) 100 UNIT/ML SQ SCH (22:53)
[2025-02-17 00:01] VITALS: BMI 51.6
[2025-02-17 00:10] LABS: Troponin High Sensitivity 4.2 pg/mL (<58.9)
[2025-02-17] MEDS ORDERED: hydrOXYzine HCL 25 MG TAB PO PRN (00:16)
[2025-02-17] MEDS ORDERED: TIRZEPATIDE 15 MG/0.5 ML SQ SCH (00:30)
[2025-02-17] MEDS ORDERED: POTASSIUM CL 40 MEQ in NA CHLORIDE 0.9% 500 ML IV SCH (01:00)
[2025-02-17] MEDS: NA CHLORIDE 0.9% 250 ML ONE (02:07)
[2025-02-17] MEDS: KCL 20 MEQ/100 mL IVPB 100 ML IV SCH (02:11)
[2025-02-17] MEDS: POTASSIUM CL SA 10 MEQ TAB PO ONE (02:11)
[2025-02-17 06:08] LABS: Absolute Basophils 0.1 K/uL (0-0.5); Absolute Eosinophils 0.5 K/uL (0-0.5); Absolute Lymphocytes (CBC) 2.1 K/uL (0.7-4.9); Absolute Monocytes 1.1 K/uL (0.1-1.3); Absolute Neutrophil 10.6 K/uL (1.8-8.0); Basophils % 0.7 % (0-1.3); Eosinophils % 3.4 % (0-4.4); Hematocrit 43.9 % (36.0-45.0); Hemoglobin 14.9 g/dL (12.0-15.0); Lymphocytes % 14.6 % (15.3-44.8); MCH 30.2 pg (27.0-35.0); MCV 88.7 fL (80-100); MPV 9.3 fL (7.6-11.3); Monocytes % 7.5 % (3.3-12.3); Neutrophils % 73.8 % (41.7-73.7); Platelets 270 thou/uL (152-406); RBC Red Blood Cell Count 4.95 M/uL (3.86-4.86); Red Cell Distribution Width 14.4 % (12.1-15.2)
[2025-02-17 06:42] LABS: Anion Gap 8.7 mEq/L (5.0-15.0); Potassium 3.7 mEq/L (3.5-5.1)
[2025-02-17 07:22] LABS: ALT/SGPT 20 U/L (13-56); AST/SGOT 15 U/L (15-37); Albumin 2.9 g/dL (3.4-5.0); Albumin/Globulin Ratio 0.8 (1.1-1.8); Alkaline Phosphatase 61 U/L (45-117); Bilirubin Direct < 0.2 mg/dL (0-0.2); Bilirubin Indirect, Calculated 0.3 mg/dL (0.2-0.8); Bilirubin Total 0.5 mg/dL (0.2-1.0); Globulin 3.5 g/dL (2.3-3.5); Lipase 65 U/L (13-75); Protein, Total 6.4 g/dL (6.4-8.2)
[2025-02-17] MEDS: BUPROPION HCL XL 150 MG TAB PO SCH (08:56)
[2025-02-17] MEDS: hydroCHLOROthiazide 25 MG TAB PO SCH (08:56)
[2025-02-17] MEDS: LOSARTAN POTASSIUM 50 MG TABLET PO SCH (08:56)
[2025-02-17] MEDS: SERTRALINE HCL 50 MG TAB PO SCH (08:56)
[2025-02-17] MEDS: ASPIRIN EC 81 MG TAB PO SCH (08:56)
[2025-02-17] MEDS: NORETHINDRONE 0.35 MG PO SCH (08:57)
[2025-02-17] MEDS: ENOXAPARIN 40 MG/0.4 ML SQ SCH (08:57)
[2025-02-17] MEDS: PROPRANOLOL HCL 10 MG TAB PO SCH (08:57)
[2025-02-17 09:54] VITALS: O2SAT 98
[2025-02-17 12:05] VITALS: BP 104/62; TEMP 98.3
--- NOTE | 2025-02-17 12:10 | ECHO ---
HEIGHT: 5 ft 6 in WEIGHT: 320 lb 0 oz DATE OF STUDY: 02/17/[address]: Prince Danni Santana MD 2-DIMENSIONAL: YES M.MODE: YES DOPPLER: YES COLOR FLOW: YES TDS: PORTABLE: YES DEFINITY: BUBBLE STUDY: DIAGNOSIS: CHEST PAIN CARDIAC HISTORY: CATHERIZATION: SURGERY: PROSTHETIC VALVE: PACEMAKER: MEASUREMENTS (cm) DIASTOLIC (NORMALS) SYSTOLIC (NORMALS) IVSd 1.1 (0.6-1.2) LA Diam 3.2 (1.9-4.0) LVEF 60-65% LVIDd 4.6 (3.5-5.7) LVIDs 3.3 (2.0-3.5) %FS 27% LVPWd 1.2 (0.6-1.2) Ao Diam 3.0 (2.0-3.7) 2 DIMENSIONAL ASSESSMENT: RIGHT ATRIUM: NORMAL LEFT ATRIUM: NORMAL RIGHT VENTRICLE: NORMAL LEFT VENTRICLE: NORMAL TRICUSPID VALVE: TRACE TRICUSPID REGURGITATION MITRAL VALVE: NORMAL PULMONIC VALVE: NORMAL AORTIC VALVE: NORMAL PERICARDIAL EFFUSION: NONE AORTIC ROOT: NORMAL LEFT VENTRICULAR WALL MOTION: NORMAL DOPPLER/COLOR FLOW: NORMAL COMMENTS: 1. NORMAL LEFT VENTRICULAR SYSTOLIC FUNCTION, EJECTION FRACTION 60-65%, NORMAL WALL MOTION 2. NORMAL DIASTOLIC FUNCTION TECHNOLOGIST: WESLY ASCENCIO
--- NOTE | 2025-02-17 12:28 | P.CNS ---
Date of Consult: 02/17/25 Chief Complaint: chest pain History of Present Illness: Patient with PMH of HTN, Morbid obesity presented with chest and back pain that started yesterday, BP was high, denies any other cardiac symptoms. Allergies Penicillins Allergy (Intermediate, Verified 02/16/25 22:36) Hives/Rash Sulfa (Sulfonamide Antibiotics) [Sulfa(Sulfonamide Antibiotics)] Allergy (Mild, Verified 02/23/12 17:06) Hives SULFA (SULFONAMIDES) Allergy (Uncoded 02/26/23 15:07) Anaphylaxis Home medications list reviewed: Yes Home Medications: Guaifenesin/Dextromethorphan [Guaifenesin Dm Syrup] 5 ml PO Q4H PRN 02/16/25 Ketorolac [Toradol] 10 mg PO Q6H PRN 02/16/25 Nitrofurantoin Monohyd/M-Cryst [Macrobid 100 mg Capsule] 100 mg PO BID 02/16/25 RX: Losartan Potassium 25 mg PO DAILY 02/16/25 RX: Metformin HCl 1,000 mg PO BID 02/16/25 RX: Norethindrone 0.35 mg PO DAILY 02/16/25 RX: Propranolol HCl 20 mg PO TID 02/16/25 RX: Sertraline HCl 25 mg PO DAILY 02/16/25 RX: hydroCHLOROthiazide [Hydrochlorothiazide] 25 mg PO DAILY 02/16/25 Tirzepatide [Mounjaro] 15 mg SQ SEECOM 02/16/25 buPROPion HCL [Bupropion Xl] 150 mg PO DAILY 02/16/25 hydrOXYzine HCL [Atarax] 25 mg PO Q4H PRN 02/16/25 - Past Medical/Surgical History Diabetic: Yes -: Type 2 Diabetes -: Hypertension Psychosocial/ Personal History: Patient is . - Social History Smoking Status: Never smoker Alcohol use: Yes CD- Drugs: No Caffeine use: No Place of Residence: Home Review of Systems 10-point ROS is otherwise unremarkable Physical Examination Temp Pulse Resp BP Pulse Ox 98.3 F 74 16 104/62 96 02/17/25 12:00 02/17/25 12:00 02/17/25 12:00 02/17/25 12:00 02/17/25 12:00 General: Alert, In no apparent distress HEENT: Atraumatic, PERRLA, Mucous membr. moist/pink, EOMI, Sclerae nonicteric Neck: Supple, 2+ carotid pulse no bruit, No LAD, Without JVD or thyroid abnormality Respiratory: Clear to auscultation bilaterally, Normal air movement Cardiovascular: Regular rate/rhythm, Normal S1 S2 Gastrointestinal: Normal bowel sounds, No tenderness Musculoskeletal: No tenderness Integumentary: No rashes Neurological: Normal gait, Normal speech, Normal tone, Normal affect Lymphatics: No axilla or inguinal lymphadenopathy Laboratory Data (last 24 hrs) 02/16/25 02/16/25 02/16/25 14:51 14:51 14:51 WBC 12.30 H Hgb 15.6 H Hct 45.5 H Plt Count 337 PT 11.8 INR 1.04 Sodium 137 Potassium 3.0 L BUN 14 Creatinine 1.04 H Glucose 204 H Magnesium 1.8 Total Bilirubin 0.4 AST 11 L ALT 23 Alkaline Phosphatase 65 Lipase 204 H - Problems (1) Chest pain Current Visit: Yes Status: Acute Plan: atypical in nature, ACS was ruled out as troponin are negative x 3 Echo shows normal EF, and diastolic function no further inpatient cardiac work up needed outpatient follow up with cardiology for a stress test. (2) Hypertension Current Visit: No Status: Chronic Plan: BP is better continue HCTZ/Losartan and Propranolol Qualifiers: (3) HLD (hyperlipidemia) Current Visit: Yes Status: Acute Plan: continue lipitor 80 mg daily outpatient follow up to check on lipid panel cardiology will sign off, please call with any questions.
--- NOTE | 2025-02-17 13:35 | P.DS ---
Admission Date: 02/16/25 Discharge Date: 02/17/25 Disposition: ROUTINE DISCHARGE Discharge Condition: GOOD Reason for Admission: chest pain Consultations: Cardiology - Dr. Velasquez Brief History of Present Illness: 49yo F, PMH: hypertension, type 2 diabetes mellitus. Patient presented to the ER complaining of chest pain radiating to her back. Patient states that she has been hypertensive for the past 2 days with blood pressure reaching as high as 204 mmHg. Patient is accompanied by cousin who is a former EMT director. She does not have any history of coronary artery disease but has extensive family history. Patient has had a pharmacologic Stress test a few years back ago and she was told it was negative. Has never had a coronary angiogram. Here in the ER, she has slight leukocytosis. First troponin is negative. She was normotensive during my evaluation. Hospital Course: Problem List Chest pain, improved Hypertension NIDDM2 Physician discharge instructions: Patient presented with intermittent chest pain over the last 1-2 days, and reported high blood pressure readings during this time as well. In the ED, EKG was regular and without ischemic changes. She reported significant family history of cardiac disease, so she was observed in the hospital. Troponins remained stable and negative x5. Blood pressure remained within normal limits, at times on lower end of normal range. Chest pain did improve but not completely resolve. Echocardiogram was done and normal. Chest x-ray and CTA chest were performed and without any acute findings - no PE, no opacities, no masses, no effusions. White blood cell count was mildly elevated, but review of her previous visits noted similar, and patient reported her white blood cells have been like that. She was supposed to follow up with Dr. Chapin a few months ago. Her lipase was noted to be mildly elevated at 204, and was back to normal (65) by the following morning of 02/17. Her pain was not classic for pancreatitis. Discussed no clear etiology of her pain, however several life-threatening causes have been ruled out. Discussed the possibility of GERD vs pancreatitis, however stated GERD symptoms have been improving and a non-issue in the last few months, and did not have epigastric tenderness at time of my exam. She does take Mounjaro which has increased risk of pancreatitis. Advised to monitor at home, and observe for any particular precipitating factors. She was evaluated by Cardiology who recommended outpatient stress test. No indications to warrant further inpatient testing at this time. Medications: Continue home medications on discharge. No changes Follow up PCP within 1 week Cardiology Vital Signs/Physical Exam: Temp Pulse Resp BP Pulse Ox 98.3 F 74 16 104/62 96 02/17/25 12:00 02/17/25 13:02 02/17/25 12:00 02/17/25 13:02 02/17/25 12:00 General: Alert, In no apparent distress, Oriented x3 HEENT: EOMI, Sclerae nonicteric Respiratory: Clear to auscultation bilaterally, Normal air movement Cardiovascular: No edema, Regular rate/rhythm Gastrointestinal: Soft and benign, Non-distended, No tenderness Laboratory Data at Discharge: WBC 14.30 thou/uL (4.3-10.9) H 02/17/25 05:44 Hgb 14.9 g/dL (12.0-15.0) 02/17/25 05:44 Hct 43.9 % (36.0-45.0) 02/17/25 05:44 Plt Count 270 thou/uL (152-406) 02/17/25 05:44 PT 11.8 SECONDS (10-13.0) 02/16/25 14:51 INR 1.04 02/16/25 14:51 Sodium 135 mEq/L (136-145) L 02/17/25 05:44 Potassium 3.7 mEq/L (3.5-5.1) D 02/17/25 05:44 BUN 15 mg/dL (7-18) 02/17/25 05:44 Creatinine 0.90 mg/dL (0.55-1.02) 02/17/25 05:44 Glucose 168 mg/dL (74-106) H 02/17/25 05:44 Magnesium 1.8 mg/dL (1.6-2.4) 02/16/25 14:51 Total Bilirubin 0.5 mg/dL (0.2-1.0) 02/17/25 05:44 AST 15 U/L (15-37) 02/17/25 05:44 ALT 20 U/L (13-56) 02/17/25 05:44 Alkaline Phosphatase 61 U/L (45-117) 02/17/25 05:44 Triglycerides 134 mg/dL (<150) 02/16/25 23:19 Cholesterol 182 mg/dL (<200) 02/16/25 23:19 HDL Cholesterol 48 mg/dL (40-60) 02/16/25 23:19 Cholesterol/HDL Ratio 3.79 02/16/25 23:19 Lipase 65 U/L (13-75) 02/17/25 05:44 Home Medications: Guaifenesin/Dextromethorphan [Guaifenesin-Dm 100-10 mg/5 ml] 5 ml PO Q4H PRN 02/16/25 Ketorolac [Toradol*] 10 mg PO Q6H PRN 02/16/25 Losartan Potassium 25 mg PO DAILY 02/16/25 Metformin HCl 1,000 mg PO BID 02/16/25 Norethindrone 0.35 mg PO DAILY 02/16/25 Propranolol HCl 20 mg PO TID 02/16/25 Sertraline HCl 25 mg PO DAILY 02/16/25 Tirzepatide [Mounjaro] 15 mg SQ SEECOM 02/16/25 buPROPion HCL [Bupropion Xl] 150 mg PO DAILY 02/16/25 hydrOXYzine HCL [Atarax*] 25 mg PO Q4H PRN 02/16/25 hydroCHLOROthiazide [Hydrochlorothiazide] 25 mg PO DAILY 02/16/25 Physician Discharge Instructions: Patient presented with intermittent chest pain over the last 1-2 days, and reported high blood pressure readings during this time as well. In the ED, EKG was regular and without ischemic changes. She reported significant family history of cardiac disease, so she was observed in the hospital. Troponins remained stable and negative x5. Blood pressure remained within normal limits, at times on lower end of normal range. Chest pain did improve but not completely resolve. Echocardiogram was done and normal. Chest x-ray and CTA chest were performed and without any acute findings - no PE, no opacities, no masses, no effusions. White blood cell count was mildly elevated, but review of her previous visits noted similar, and patient reported her white blood cells have been like that. She was supposed to follow up with Dr. Chapin a few months ago. Her lipase was noted to be mildly elevated at 204, and was back to normal (65) by the following morning of 02/17. Her pain was not classic for pancreatitis. Discussed no clear etiology of her pain, however several life-threatening causes have been ruled out. Discussed the possibility of GERD vs pancreatitis, however stated GERD symptoms have been improving and a non-issue in the last few months, and did not have epigastric tenderness at time of my exam. She does take Mounjaro which has increased risk of pancreatitis. Advised to monitor at home, and observe for any particular precipitating factors. She was evaluated by Cardiology who recommended outpatient stress test. No indications to warrant further inpatient testing at this time. Medications: Continue home medications on discharge. No changes Follow up PCP within 1 week Cardiology Diet: AHA Activity: Ad segundo Followup: Mario Velasquez MD [ACTIVE - CAN ADMIT] - 1-2 Weeks OOT,OOT [Primary Care Provider] - Time spent managing pt's care (in minutes): 45
--- NOTE | 2025-02-17 14:15 | EKG ---
Test Date: 2025-02-16 Test Time: 19:08:59 [employer]idential [employer] Underwriter: AF MEASUREMENT RESULTS: Intervals: Rate: 82 MA: 130 QRSD: 110 QT: 408 QTc: 476 [place]: P: 10 MA: 130 QRS: 17 T: 53 INTERPRETIVE STATEMENTS: Normal sinus rhythm Normal ECG Compared to ECG 02/25/2023 19:08:05 No significant changes Electronically Signed On 02-17-25 14:12:53 CDT by Mario Velasquez
--- NOTE | 2025-02-17 14:17 | EKG ---
Test Date: 2025-02-16 Test Time: 13:30:41 Network Announcer: PABLO MEASUREMENT RESULTS: Intervals: Rate: 104 [place]: 144 QRSD: 102 QT: 354 QTc: 465 [place]: P: 57 [place]: 144 QRS: 31 T: 54 INTERPRETIVE STATEMENTS: Sinus tachycardia Incomplete right bundle branch block Cannot rule out Anterior infarct, age undetermined Abnormal ECG Compared to ECG 02/25/2023 19:08:05 Incomplete right bundle-branch block now present Myocardial infarct finding now present Sinus rhythm no longer present Electronically Signed On 02-17-25 14:13:30 CDT by Mario Velasquez
== END 2025-02-17 14:36 | disposition home or self-care (01) ==
LOC: ER 13:07 → ERHOLD 19:20 → 4TH 21:03
PROVIDERS: ADMIT Internal Medicine; ATTEND Hospitalist
DX: R07.9 Chest pain, unspecified (principal); E66.01 Morbid (severe) obesity due to excess calories; I10 Essential (primary) hypertension; E78.5 Hyperlipidemia, unspecified; E11.9 Type 2 diabetes mellitus without complications; Z88.2 Allergy status to sulfonamides; Z88.0 Allergy status to penicillin; Z79.85 Long-term (current) use of injectable non-insulin antidiabetic drugs
CPT/HCPCS: 93005 ×2; 93306; 85025 ×2; 80048 ×2; 36415; 83735; 85610; 80061; 82947 ×2; 80076 ×2; 83036; 84484 ×5; 83690 ×2; 83880; 70450; 71275; 71045; 96375; 96374; 99285; Q9967; J3480; J1650; J2405; J1815 ×2; J7050; G0378